=== PATIENT | male | born 1950 | race Caucasian/White ===

== ENCOUNTER → 2017-11-07 09:30 | Outpatient (CLI) | payer MEDICARE, OTHER, SELFPAY ==
[2017-11-07 11:04] LABS: Abs Immature Grans 0.02 k/cumm (0.0-0.09); Absolute Basophil Count 0.02 k/cumm (0.0-0.2); Absolute Eosinophil Count 0.04 k/cumm (0.0-0.7); Absolute Lymphocyte Count 1.12 k/cumm (1.2-3.4); Absolute Monocyte Count 0.74 k/cumm (0.11-0.7); Absolute Neutrophil Count 6.51 k/cumm (1.2-6.7); Basophils % 0.2; Eosinophils % 0.5; HCT 46.3 % (40.0-50.0); Immature Grans % 0.2; Lymphocytes % 13.3; Mean Corp. HGB Concentration 32.4 g/dL (32.0-36.0); Mean Corpuscular Hemoglobin 32.3 pg (27.0-33.0); Mean Corpuscular Volume 99.6 fL (80-95); Monocytes % 8.8; Platelet Count 222 x1000/uL (130-400); RBC 4.65 m/cumm (4.50-6.00); RBC Distribution Width 13.7 % (11.8-14.1); White Blood Cell Count 8.45 k/cumm (4.4-10.8)
[2017-11-07 12:52] LABS: Lipase 314 U/L (73-393)
== END ==
PROVIDERS: PCP Family Medicine; Visit Provider Family Medicine
DX: R10.13 Epigastric pain (principal)
CPT/HCPCS: 36415; 83690; 85025

== ENCOUNTER → 2017-11-10 03:10 | Outpatient (CLI) | payer MEDICARE, OTHER, SELFPAY ==
--- NOTE | 2017-11-10 10:41 | DI.REPORT_ITS ---
SYMPTOM/DIAGNOSIS: ABD PAIN R10.13 ABDOMEN ULTRASOUND: Comparison is made with 02 July 2014. The liver is normal in size and echogenicity. No focal lesions or biliary dilatation is seen. The gallbladder has a normal appearance without evidence of stones or wall thickening. Kidneys, spleen, and aorta appear normal. The visualized portions of the pancreas are unremarkable. There is no ascites. IMPRESSION: Negative abdomen ultrasound.
== END ==
PROVIDERS: PCP Family Medicine; Visit Provider Family Medicine
DX: R10.13 Epigastric pain (principal)
CPT/HCPCS: 76700

== ENCOUNTER → 2017-11-13 07:47 | Outpatient (REF) | payer MEDICARE, OTHER, SELFPAY ==
[2017-11-14 13:54] LABS: Helicobacter pylori Ag, Feces Negative (NEGAT)
== END ==
LOC: LBN 07:47
PROVIDERS: PCP Family Medicine; Visit Provider Family Medicine
DX: R10.13 Epigastric pain (principal)
CPT/HCPCS: 87338

== ENCOUNTER → 2017-12-15 07:56 | Outpatient (BNVA) | payer MEDICARE, OTHER, SELFPAY | PROVIDERS: PCP Family Medicine; Referring Provider Family Medicine; Visit Provider Surgery | DX: L72.3 Sebaceous cyst (principal); R19.06 Epigastric swelling, mass or lump | CPT/HCPCS: 11403; 99201; 99213 ==

== ENCOUNTER → 2018-01-05 10:25 | Outpatient (BNVA) | payer MEDICARE, OTHER, SELFPAY | PROVIDERS: PCP Family Medicine; Referring Provider Family Medicine; Visit Provider Surgery | DX: L72.3 Sebaceous cyst (principal) | CPT/HCPCS: 10061; 99213 ==

== ENCOUNTER → 2018-01-17 14:40 | Outpatient (BNVA) | payer MEDICARE, OTHER, SELFPAY | PROVIDERS: PCP Family Medicine; Referring Provider Family Medicine; Visit Provider Student in an Organized Health Care Education/Training Program | DX: M17.11 Unilateral primary osteoarthritis, right knee (principal); M75.81 Other shoulder lesions, right shoulder; M25.561 Pain in right knee; Z96.652 Presence of left artificial knee joint | CPT/HCPCS: 20610; 99213; J1040 ==

== ENCOUNTER 2018-03-07 10:50 | Outpatient (CLI) | payer MEDICARE, OTHER, SELFPAY ==
[2018-03-07 12:17] LABS: HCT 47.8 % (40.0-50.0); HGB 15.6 g/dL (13.5-17.5); Mean Corp. HGB Concentration 32.6 g/dL (32.0-36.0); Mean Corpuscular Hemoglobin 32.6 pg (27.0-33.0); Mean Platelet Volume 9.8 fL (8.0-11.0); Platelet Count 191 x1000/uL (130-400); RBC 4.78 m/cumm (4.50-6.00); RBC Distribution Width 13.3 % (11.8-14.1); White Blood Cell Count 6.08 k/cumm (4.4-10.8)
[2018-03-07 12:58] LABS: Anion Gap 9.3 mmol/L (3-11); BUN 31 mg/dL (7-18); CO2 29.7 mmol/L (21.0-32.0); CREATININE 0.84 mg/dL (0.70-1.30); Calcium 9.3 mg/dL (8.5-10.1); Chloride 103 mmol/L (98-107); Glucose 88 mg/dL (70-100); Potassium 4.2 mmol/L (3.5-5.1); Sodium 142 mmol/L (136-145)
--- NOTE | 2018-03-07 13:18 | HPE_ITS ---
Date of service: 03/07/18 Assessment and Plan (1) Right knee DJD: Current visit: Yes Status: Chronic Right total knee replacement Details of surgery were discussed with patient as well as risks and pertinent anatomy. All questions were answered. History of Present Illness Chief Complaint: Right knee pain Narrative: Genan is a 67-year-old male who is been complaining of right knee for over a year now. He recently has had his left knee replaced, which is gotten back to a lot of the activities. He is a very active person and enjoys hunting especially. He is in fact this season went out [place] for about 2 weeks, and then returned home hunting for another week and a half every day. He says that he was walking over some rough terrain. He had an injection in his right knee aorta to be able to make the trip at the beginning of January, but he says that the injection is starting to wear off at this point. His right knee is now starting to limit him in his activities. He knows that he has arthritis of his right knee and would like to move forward as soon as possible with a right total knee replacement. He has had x-rays done which do reveal narrowing of the joint space of the medial side of his right knee. He is very happy with the results of his left knee, would like to move forward with a right knee replacement so he can continue to be as active as he has been. Pertinent Surgical Information Genna did not like the way oxycodone made him feel, so he would like to try instead. Patient denies history of hypertension, CVA, NV, angina, asthma, COPD, renal or liver disorders, hepatitis, bleeding disorders, diabetes, immune or thyroid disorders. No complications from anesthesia. Review of Systems Constitutional Denies fever(s) ENT Denies dizziness and Denies sore throat Cardiovascular Denies chest pain, Denies palpitations and Denies dyspnea Respiratory Denies dyspnea Gastrointestinal Denies abdominal pain, Denies melena, Denies hematochezia, Denies diarrhea, Denies nausea and Denies vomiting Genitourinary Denies hematuria and Denies dysuria Neurologic Denies dizziness Endocrine Denies palpitations [facility] History of right inguinal hernia (Acute) Lipoma of abdominal wall (Acute) Sebaceous cyst (Acute) Back pain with sciatica (Chronic) Lumbago (Chronic) Family History Mother Hyperlipidemia Father Dementia Stroke COPD (chronic obstructive pulmonary disease) Sister No problems noted. Grandfather No problems noted. Grandfather Heart disease Grandmother Stroke Grandmother Neoplasm History of arthroscopy of left knee (Acute) History of arthroscopy of right knee (Acute) History of repair of anterior cruciate ligament of left knee (Chronic) Arthroplasty of knee Family History Mother Hyperlipidemia Father Dementia Stroke COPD (chronic obstructive pulmonary disease) Sister No problems noted. Grandfather No problems noted. Grandfather Heart disease Grandmother Stroke Grandmother Neoplasm Medical History History of right inguinal hernia (Acute) Lipoma of abdominal wall (Acute) Sebaceous cyst (Acute) Back pain with sciatica (Chronic) Lumbago (Chronic) Social History Smoking/Tobacco Use Status: Current-Occasional tobacco type: smokeless tobacco Surgical History History of arthroscopy of left knee (Acute) History of arthroscopy of right knee (Acute) History of repair of anterior cruciate ligament of left knee (Chronic) Arthroplasty of knee Social History Smoking/Tobacco Use Status: Current-Occasional tobacco type: smokeless tobacco alcohol intake: current details: 5/week Meds Home Medications Medication Instructions Recorded Confirmed Type meloxicam 15 mg PO DAILY PRN #90 tab 11/06/17 03/07/18 History omeprazole 20 mg PO BID #60 tab-cap 11/06/17 03/07/18 Rx acetaminophen [Mapap Extra 1,000 mg PO Q8H PRN 03/07/18 03/07/18 History Strength] Allergies Allergy/AdvReac Type Severity Reaction Status Date / Time No Known Allergies Allergy Unverified 03/07/18 11:03 Exam HENNJ Head: normocephalic and atraumatic General nose exam: no nasal discharge Throat: uvula midline and no uvular edema Other: soft palate rises symmetrically, no erythema Eyes Conjunctivae: conjunctivae normal Sclera: sclerae normal Pupils: PERRL Resp Effort & Inspection: normal respiratory effort Auscultation: clear to auscultation bilaterally and no wheezes Cardio Rate: regular rate Rhythm: regular rhythm Heart Sounds: S1 normal, S2 normal and no murmurs Other: BP: 128/78 Results Labs : 03/07/18 11:49 03/07/18 11:49 Laboratory Results - last 24 hr 03/07/18 03/07/18 11:49 11:49 WBC 6.08 RBC 4.78 Hgb 15.6 Hct 47.8 MCV 100.0 H MCH 32.6 MCHC 32.6 RDW 13.3 Plt Count 191 MPV 9.8 Sodium 142 Potassium 4.2 Chloride 103 Carbon Dioxide 29.7 Anion Gap 9.3 BUN 31 H Creatinine 0.84 Estimated GFR/1.73 m2 >= 60.00 Glucose 88 Calcium 9.3
== END 2018-03-07 11:10 ==
PROVIDERS: PCP Family Medicine; Visit Provider Student in an Organized Health Care Education/Training Program
DX: M25.561 Pain in right knee (principal); M17.11 Unilateral primary osteoarthritis, right knee; Z01.818 Encounter for other preprocedural examination
CPT/HCPCS: 36415; 80048; 85027; NC

== ENCOUNTER 2018-03-15 05:58 | Observation (INO) | payer MEDICARE, OTHER, SELFPAY ==
[2018-03-15] VITALS (11 sets, daily range): BP systolic 95–139; BP diastolic 49–83; PULSE 49–66; RESP 12–20; TEMP 36–36.6; O2SAT 96–100
[2018-03-15] MEDS: Lactated Ringers 1,000 ML 80 ML IV ×3 (06:34→12:50)
[2018-03-15] MEDS: Gabapentin 300 MG CAP PO (06:35)
[2018-03-15] MEDS: oxyCODONE-CR 10 MG TABCR PO (06:35)
[2018-03-15] MEDS: Acetaminophen 500 MG TAB 1000 MG PO ×2 (06:35→14:15)
[2018-03-15] MEDS: Celecoxib 200 MG CAP 400 MG PO (06:36)
[2018-03-15] MEDS: Bupivacaine LIPOSOME/PF 133 MG/10 ML VIAL IJ (08:59)
[2018-03-15] MEDS: Ketorolac 30 MG/ML VIAL (08:59)
[2018-03-15] MEDS: Bupivacaine 0.25% Pres-Free 30 ML VIAL (08:59)
[2018-03-15] MEDS: Normal Saline 20 ML VIAL (08:59)
--- NOTE | 2018-03-15 13:45 | DSE_ITS ---
Date of service: 03/15/18 Time of Service: 13:44 DS: Diagnosis Discharge Diagnosis (1) Right knee DJD: Status: Acute Discharge Plan Disposition Patient Disposition: HOME Condition: Good Discharge Details Reason For Visit: (R) KNEE DJD Admit Date/Time: 03/15/18 05:58 Admit Provider: Carlos Cancino Attending Provider: Carlos Cancino Primary Care Provider: Lindsey Herndon [facility] Course Hospital Course: Patient was admitted to the medical/surgical floor following the procedure. It was tolerated well without any notable medical, surgical, or anesthetic complications. Mobilization began postoperatively. The foster catheter was removed and voiding spontaneously. Vitals were stable. Physical therapy worked with the patient and was cleared for discharge home. No acute medical issues. Home Meds and New Rx's Prescriptions: New celecoxib 200 mg capsule 200 mg PO BID PRN (Reason: pain) Qty: 60 RF: 1 pantoprazole 40 mg tablet,delayed release (DR/EC) 40 mg PO DAILY Qty: 30 RF: 0 acetaminophen 500 mg capsule 1,000 mg PO Q8H PRN (Reason: pain) Qty: 90 RF: 0 oxycodone 5 mg tablet 5 mg PO Q4H Qty: 10 RF: 0 aspirin [Aspir-81] 81 mg tablet,delayed release (DR/EC) 81 mg PO BID Qty: 80 RF: 0 Continued acetaminophen [Mapap Extra Strength] 500 MG tablet 1,000 mg PO Q8H PRNRF: 0 omeprazole 20 MG capsule,delayed release(DR/EC) 20 mg PO BID PRNRF: 0 Discontinued meloxicam 15 MG tablet 15 mg PO DAILY PRNQty: 90 RF: 11 Discharge Instructions Additional Instructions: Dr. Cancino?s Total Knee Discharge Instructions Activity: The most important activity is to walk. You should try to take short walks a few times a day. It is important that when resting you work on keeping the knee straight. Avoid putting a pillow behind the knee as this will encourage flexion. Work on range of motion exercises as provided by Physical Therapy. - Start outpatient physical therapy within 2 weeks. - You should wear the MIGNON hose on both legs for 4 weeks. Dressing: Remove the CHRISTOPHER wrap from around the knee on . If it comes down sooner, you may remove it. Keep the surgical dressing in place for at least one week. After the first week it may be removed and replace with light gauze and tape or nothing. It may get wet after 3 days but avoid soaking the dressing. If it gets wet, just lightly pat dry. Medications: - You should take Tylenol and anti-inflammatory (Celebrex) as your primary pain control medications - You have been prescribed a stronger pain medication (Oxycodone) for breakthrough pain, take as needed as prescribed. - You will be taking Aspirin 81mg twice a day for DVT prevention unless instructed otherwise. - If you have constipation you should take Colace or Miralax (both [id number]). It takes most people 3-4 days to have a bowel movement. Follow-up: 2 weeks Referrals: Carlos Cancino MD [ [facility] STAFF PHYSICIAN] - 03/30/18 10:45 am Activity:: Activity as Tolerated Equipment/Supplies:: Walker Diet:: Normal Diet Discharge Orders Discharge Orders: Discharge Order (Routine); Ordered 03/15/18 Ordered By: Carlos Cancino DS: Data Vitals/I&O Vitals and I&O: Vital Signs Temperature 36.4 C L 03/15/18 13:00 Temperature Source Tympanic 03/15/18 13:00 Pulse 61 03/15/18 13:00 Pulse Rhythm Regular 03/15/18 10:45 Respiratory Rate 20 03/15/18 13:00 Respiratory Effort Non-Labored 03/15/18 10:45 Respiratory Depth Normal 03/15/18 10:45 Respiratory Pattern Normal 03/15/18 10:45 Blood Pressure 108/63 03/15/18 13:00 Pulse Oximetry 97 03/15/18 13:00 Respiratory End-tidal CO2 33 03/15/18 09:53 Oxygen Delivery Method Room Air 03/15/18 13:00 Oxygen Flow Rate 0 03/15/18 13:00 Pain Level 0 03/15/18 13:00 Intake & Output 03/14/18 03/15/18 03/15/18 23:59 11:59 23:59 Intake Total 1470 / 1672.667 202.667 / 1672.667 Output Total 300 / 300 Balance 1170 / 1372.667 202.667 / 1372.667 Weight 67.5 kg Intake: IV 1470 / 1672.667 202.667 / 1672.667 Output: Urine 100 / 100 Estimated Blood Loss 200 / 200 Other: Urine Color Yellow Urine Appearance Clear Emesis Description None [facility] Medical History History of right inguinal hernia (Acute) Lipoma of abdominal wall (Acute) Sebaceous cyst (Acute) Back pain with sciatica (Chronic) Lumbago (Chronic) Surgical History History of arthroscopy of left knee (Acute) History of arthroscopy of right knee (Acute) History of repair of anterior cruciate ligament of left knee (Chronic) Arthroplasty of knee Family History Mother Hyperlipidemia Father Dementia Stroke COPD (chronic obstructive pulmonary disease) Sister No problems noted. Grandfather No problems noted. Grandfather Heart disease Grandmother Stroke Grandmother Neoplasm Social History Smoking/Tobacco Use Status: Current-Occasional tobacco type: smokeless tobacco alcohol intake: current details: 5/week
--- NOTE | 2018-03-15 15:26 | PT.INIE ---
Date of service: 03/15/18 Time of Service: 15:26 PT Notes Inpatient Physical Therapy Evaluation Date: 03/15/2018 Referring Doctor: Carlos Cancino MD PT Orders: PT CONSULT: S/P R TKA Precautions: WBAT RLE Patient Profile/Admitting Diagnosis: Patient is a 67-year-old male S/P right total knee arthroplasty by Dr. Cancino 03/15/2018 PMHX: Right knee degenerative joint disease, left total knee arthroplasty 04/11/2017, right rotator cuff tendinitis, lumbago, posterior vitreous detachment of right eye, asymmetric prostate Social History/Home Situation: Lives at home with 2 steps no railing to enter, all one level inside. Baseline mobility independent gait without assistive device and independent with ADLs. Equipment Owned/DME: FWW, cane Subjective: Patient lying in bed agreeable to PT consult, reports no pain. Objective: General Observation: CryoCuff right knee, IV left upper extremity Mental Status: A and O x3 Pain: No complaints of pain Bed Mobility/Transfers: Supine to sit: Independent Sit to stand: Independent with FW W Stand to sit: Independent Sit to supine: Independent Gait: Independent with FWW 200 feet, WBAT RLE, step to gait pattern progressing to step through gait pattern with instruction, patient returned to bed after gait session completed, Cryo/Cuff applied to right knee Stairs: Up/down 5 steps with railing, WBAT RLE, independent with step to step sequence Therex: Patient has issued preop home exercise program for TKA, initiated ankle pumps quad sets and glutes sets x20 reps bilaterally. Patient instructed to follow home exercise program on discharge. Patient instructed in use of Cryo/Cuff and home setting, patient verbalized understanding of all instructions. Balance: Static Sitting: Normal Dynamic Sitting: Normal Static Standing: Fair Dynamic Standing: Fair Special Tests: Mobility Limitations Standardized Measure [facility] AM-PAC 6 clicks Basic Mobility Inpatient Short Form: Raw Score: 20 standardized Score: 47.67 CMS Score: 35.83% CMS Modifier: CJ Informed Consent/Education: Patient instructed in purpose of PT consult and plan of care. Assessment: Patient is a 67-year-old male S/P right total knee arthroplasty by Dr. Cancino 03/15/2018 in setting of right knee degenerative joint disease, left total knee arthroplasty 04/11/2017, right rotator cuff tendinitis, lumbago. Patient presents at independent level of function with transfers and gait with front wheel walker and up and down stairs. Patient is a functional level to return to home setting, home exercise program issued to perform and home setting. Impairments are contributing to the following functional limitations: AMPAC score CMS Score: 35.83% Patient is assessed as a Low 78543 complexity based on the following: History: See above Examination: See above Presentation: Stable Decision Making: AMPAC score CMS Score: 35.83% Goals: Not applicable Plan of Care/Treatment Plan: PT eval only DISCHARGE RECOMMENDATIONS: Home, has front wheel walker TREATMENT CODE/TIME: 26 minutes IE 1325 G Codes in the area mobility of walking and moving around: current status [id number]; projected status GP [id number]. Discharge status (if discharging) GP [id number] CJ based on AMPAC score CMS Score: 35.83% Nataly Elias PT Disclaimer: This note was created using [employer] voice recognition software. It was reviewed for major content. However, there may be multiple small discrepancies and errors due to the voice recognition aspects of the software.
--- NOTE | 2018-03-15 15:36 | IN_ITS ---
Date of service: 03/15/18 Time of Service: 15:26 PT Notes Inpatient Physical Therapy Evaluation Date: 03/15/2018 Referring Doctor: Carlos Cancino MD PT Orders: PT CONSULT: S/P R TKA Precautions: WBAT RLE Patient Profile/Admitting Diagnosis: Patient is a 67-year-old male S/P right total knee arthroplasty by Dr. Cancino 03/15/2018 PMHX: Right knee degenerative joint disease, left total knee arthroplasty 04/11/2017, right rotator cuff tendinitis, lumbago, posterior vitreous detachment of right eye, asymmetric prostate Social History/Home Situation: Lives at home with 2 steps no railing to enter, all one level inside. Baseline mobility independent gait without assistive device and independent with ADLs. Equipment Owned/DME: FWW, cane Subjective: Patient lying in bed agreeable to PT consult, reports no pain. Objective: General Observation: CryoCuff right knee, IV left upper extremity Mental Status: A and O x3 Pain: No complaints of pain Bed Mobility/Transfers: Supine to sit: Independent Sit to stand: Independent with FW W Stand to sit: Independent Sit to supine: Independent Gait: Independent with FWW 200 feet, WBAT RLE, step to gait pattern progressing to step through gait pattern with instruction, patient returned to bed after gait session completed, Cryo/Cuff applied to right knee Stairs: Up/down 5 steps with railing, WBAT RLE, independent with step to step sequence Therex: Patient has issued preop home exercise program for TKA, initiated ankle pumps quad sets and glutes sets x20 reps bilaterally. Patient instructed to follow home exercise program on discharge. Patient instructed in use of Cryo/Cuff and home setting, patient verbalized understanding of all instructions. Balance: Static Sitting: Normal Dynamic Sitting: Normal Static Standing: Fair Dynamic Standing: Fair Special Tests: Mobility Limitations Standardized Measure [facility] AM-PAC 6 clicks Basic Mobility Inpatient Short Form: Raw Score: 20 standardized Score: 47.67 CMS Score: 35.83% CMS Modifier: CJ Informed Consent/Education: Patient instructed in purpose of PT consult and plan of care. Assessment: Patient is a 67-year-old male S/P right total knee arthroplasty by Dr. Cancino 03/15/2018 in setting of right knee degenerative joint disease, left total knee arthroplasty 04/11/2017, right rotator cuff tendinitis, lumbago. Patient presents at independent level of function with transfers and gait with front wheel walker and up and down stairs. Patient is a functional level to return to home setting, home exercise program issued to perform and home setting. Impairments are contributing to the following functional limitations: AMPAC score CMS Score: 35.83% Patient is assessed as a Low [id number] complexity based on the following: History: See above Examination: See above Presentation: Stable Decision Making: AMPAC score CMS Score: 35.83% Goals: Not applicable Plan of Care/Treatment Plan: PT eval only DISCHARGE RECOMMENDATIONS: Home, has front wheel walker TREATMENT CODE/TIME: 26 minutes IE 1325 G Codes in the area mobility of walking and moving around: current status [id number]; projected status GP [id number]. Discharge status (if discharging) GP [id number] CJ based on AMPAC score CMS Score: 35.83% Nataly Elias PT Disclaimer: This note was created using [employer] voice recognition software. It was reviewed for major content. However, there may be multiple small discrepancies and errors due to the voice recognition aspects of the software.
--- NOTE | 2018-03-16 06:57 | W.PM.OP ---
Date of service: 03/15/18 Time of Service: 09:57 Operative Note DATE OF PROCEDURE: 03/15/18 PRE-OP DIAGNOSIS: Right knee osteoarthritis POST-OP DIAGNOSIS: same PROCEDURE: Right Total Knee Replacement SURGEON: Carlos Cancino GRADES 1 THROUGH 5 TEACHER: Patrizia Muniz ANESTHESIA: regional and spinal ESTIMATED BLOOD LOSS: 200 PATHOLOGY: none sent TOURNIQUET TIME: 0 COMPLICATIONS: None Patient was transported to: PACU Patient's condition: stable Implants: 1. Depuy Attune Posterior Stabilized Femoral Component, Size 6 2. Depuy Attune Fixed Platform Tibial Component, Size 5 3. Depuy Attune 6x6mm Fixed, Stabilized Poly 4. Depuy Attune Patellar Component, Size 35 Indications: I have seen Genna in clinic for symptoms of RIGHT knee arthritis, confirmed with radiographic findings. Genna has exhausted nonoperative methods and was having significant limitations in daily function and desired better function and less pain. I discussed the technical details of a knee replacement. I explained the risks of the procedure to include, but not limited to, bleeding, infection, pain, stiffness, fracture, damage to nerves and vessels, damage to muscles and tendons, loosening, need for repeat procedure, blood clot and cardiopulmonary demise. Despite these risks, Genna elected to proceed. Findings: There was significant signs of arthritis throughout the knee. These are focused primarily over the medial side of the knee where there is complete loss of cartilage and exposure of bone. Procedure Description: Genna was greeted in the preoperative holding area where the correct side was identified and marked. The consent was reviewed with the patient and signed. The history and physical was updated. All questions were answered. Preoperative mediacations were administered: Acetaminophen 1000mg, Celebrex 400mg, Gabapentin 300mg, and Oxycontin 10mg. An adductor canal block was then administered by the anesthesia team in the PACU. Genna was taken back to the operating room. A spinal anesthestic was then administered. The patient was placed into the supine position on the operating room table. A nonsterile tourniquet was placed high onto the leg but only used for cementing. Posts were placed for positioning during the procedure. All bony prominences were well padded. Prophylactic antibiotics in the form of Cefazolin were administered. 1g of Tranxemic Acid was given intravenously within 30 minutes of incision. The right leg was then prepped with Chloraprep and draped in a standard fashion with impervious stockinette and extremity drape with Iodine impregnated skin protection. A timeout to confirm correct identity, side and site, procedure, allergies, anesthesia, and medical concerns was performed. With the knee in some flexion, a midline incision was made overlying the knee. Full thickness skin flaps were raised once the extensor mechanism was encountered. These were raised medially and laterally. Any bleeding was controlled with electrocautery. Once the extensor mechanism was fully exposed, a medial parapatellar arthrotomy was performed in a flexed position. All bleeding from the arthrotomy and the geniculate arteries was coagulated. A medial subperiosteal peel was performed with electrocautery to the midcoronal plane. The fat pad was removed while keeping the patellar tendon protected. The anterior distal femur synovium was removed for later visualization. The ACL and PCL were resected and the anterior horn of the lateral meniscus was transected. The knee was then flexed with the patella everted. Using a step drill, and based on preoperative templating, the femoral canal was entered. This was done with a step drill without any difficulty. The intramedullary distal femoral cut guide was inserted, set to a 5 degree valgus cut and 9mm cut thickness. The distal femoral cut guide was then held in position and pinned. With the soft tissues protected, the distal cut was performed. This was passed over a few times to ensure a planar cut. I then turned attention to the tibia. The extramedullary guide was placed onto the leg. The distal aspect was slid medial to adjust for position of center of ankle and stay in line with shaft of the tibia. Approximately 3-5 degrees of posterior slope was kept in the proximal cutting guide. The center of the guide was aligned with the PCL. The stylus was used to assess cut thickness. The medial side, most involved side, was set for a 4mm cut. This was then held in position and pinned into place with 2 additional pins and a cross pin for stability. The medial and lateral collateral ligaments were protected and the cut was performed. With this completed, it was assessed and noted to be of appropriate dimensions. The guide was removed. A spacer block was inserted and the knee was brought into extension. The 6mm spacer block provided full extension, without hyperextension and with stability of both the medial and lateral collateral ligaments was assessed. The pins from the femur and the tibia were then removed. The distal femur was then sized. The anterior stylus was placed onto the lateral ridge of the anterior femur. This indicated a size 6 femur. The external rotation of the guide was adjusted to 3 degrees to match the epicondylar axis, perpendicular to Araceli?s line. The 4-in-1 cutting guide was the placed. The posterior medial femur cut was evaluated and appeared of good thickness. The spacer block was inserted underneath the cutting guide and stability was confirmed in 90 degrees of flexion. An azul wing was used to confirm appropriate position of the anterior cut to avoid notching. This cutting guide was ensured to be flush on the cut surface and then pinned into place with headed pins. While protecting the soft tissues, quad tendon, and collateral ligaments, the anterior and posterior cuts were performed with a saw. The central two pins were removed and the posterior and anterior chamfers were cut next. The notch-cutting guide was placed. This was pinned to lateralize the femoral component as much as possible while keeping it flush on the cut surface. This was then pinned into position. A reciprocating saw was used to make the notch cut. A rasp smoothed the cut surfaces. A trial posterior stabilized femoral component was then inserted, impacted down to the cut surfaces, and the lug holes were drilled. A provisional trial tibial component was placed and the knee was brought through range of motion. There was noted to be excellent extension and flexion. There was no significant instability. The patella was tracking without thumbs. The tibial cut surface was fully exposed. The medial and lateral menisci were removed. The tibia was then sized as a 5. The tibia had been previously marked during trialing to correspond to the center of the tibial component to help with rotation. The trial was aligned to this feliz, approximately rotated to the medial 1/3rd of the tibial tubercle. The trial was pinned into place. The tibia was prepared with a reamer and a keel punch. The knee was then brought into extension and the patella was measured as 25mm. Using the patellar clamp and cut guide, this was resected to a flat surface with at least 13mm of thickness remaining. The size 35 patella fit the best. This was oriented and then clamped into position. The lugs were drilled. The trial components were removed. The final components, except for the polyethylene were opened on the back table. The periosteal and capsular tissues, especially posteriorly, around the knee were then systematically injected with a periarticular cocktail consisting of 50cc 0.25% Marcaine, 30mg Ketorolac, 20cc of Exparal and 50cc of injectable saline. The knee was thoroughly irrigated with a pulse lavage and dried. On the back table, with the implants opened, the cement was mixed. 2 batches of antibiotic laden cement were prepared with vacuum assistance. After the cement was ready a small amount was placed on to the back side of the tibial component at the keel. A small amount was placed onto the posterior flange of the femur. Cement was manual pressurized and impregnated into the cut surface of the tibia. The tibial component was then inserted into the cut surface and impacted into position. Excess cement was removed and the component was reimpacted. Again, excess cement was removed and our attention was then turned to the femur. The femoral cut surface was once again dried and cement was manually impacted into the cut surface. The femoral component was lined with the lug holes and impacted. Excess cement was removed. It was ensured to be down against the cut surface. The trial polyethylene was then inserted and the leg was brought out into full extension for the duration of the cement curing process, approximately 15min. Cement was lastly manually impacted into the cut surface of the patella and the patellar button was clamped into position and held. During this process attention was turned to the gutters of the knee and for all interfaces for any excess cement. After the cement had finally cured, approximately 15min, the clamp was removed from the patella and the knee was taken through range of motion. A size 6mm polyethylene component provided the best range of motion and stability with less than 2mm gapping with medial and lateral stress and full extension without significant hyperextension. The patella was tracking with a no-thumbs technique. The trial poly was removed and once again the knee was checked for any loose, excess, or errant cement. The poly component was then inserted and impacted into position after cleaning and drying the tibial tray. The capsule was then reapproximated with a No. 1 Vicryl at multiple locations. The capsule was finally closed with a No. 2 Stratafix, barbed suture. The second dosing of 1g TXA was started. Deep tissues were then reapproximated with 0 Vicryl and 2-0 Vicryl. The skin was closed with a running 3-0 Monocryl in a subcuticular fashion. This was reinforced with skin glue. A Mepilex silver dressing was applied along with a [id number] CHRISTOPHER wrap. A CryoCuff was applied. Genna was transferred to the hospital bed without difficulty an suffering no apparent complication. Genna has a good prognosis. Physical therapy will start today and without restrictions, weight-bearing as tolerated. Aspirin 81mg BID will be used for DVT prophylaxis.
== END 2018-03-15 17:43 | disposition home or self-care (01) ==
LOC: PDS 10:49 → MS 10:50
PROVIDERS: Admitting Provider Student in an Organized Health Care Education/Training Program; PCP Family Medicine; Visit Provider Student in an Organized Health Care Education/Training Program
PROC: 0SRC0J9 Replacement of Right Knee Joint with Synthetic Substitute, Cemented, Open Approach (ICD-10-PCS; CPT 27447; principal; 2018-03-15 07:30)
DX: M17.11 Unilateral primary osteoarthritis, right knee (principal); Z96.651 Presence of right artificial knee joint
CPT/HCPCS: 27447; 76942; 97161; NC; G0378; G8978; J0690; J1885; J2250; J2405; J3010

== ENCOUNTER 2018-03-30 11:07 | Outpatient (CLI) | payer MEDICARE, OTHER, SELFPAY ==
--- NOTE | 2018-03-30 11:02 | DI.RAD_ITS ---
SYMPTOMS/DIAGNOSIS: S/P TOTAL KNEE LEG LENGTH EXAMINATION AND RIGHT KNEE: There are post surgical changes of a right total knee replacement. The orthopedic hardware appears in good position. The bones are intact and normally mineralized. Note is made of a left total knee replacement and findings of a prior ACL repair. The right lower extremity measures 89.8 cm. The left lower extremity measures 90.3 cm. The soft tissues are unremarkable. IMPRESSION: Bilateral TKR.
== END 2018-03-30 11:27 ==
PROVIDERS: PCP Family Medicine; Visit Provider Student in an Organized Health Care Education/Training Program
DX: Z96.653 Presence of artificial knee joint, bilateral (principal); Z47.1 Aftercare following joint replacement surgery; M17.11 Unilateral primary osteoarthritis, right knee; H35.049 Retinal micro-aneurysms, unspecified, unspecified eye
CPT/HCPCS: 73560; 77073

== ENCOUNTER → 2018-04-27 09:26 | Outpatient (BNVA) | payer MEDICARE, OTHER, SELFPAY | PROVIDERS: PCP Family Medicine; Referring Provider Family Medicine; Visit Provider Student in an Organized Health Care Education/Training Program | DX: Z47.1 Aftercare following joint replacement surgery (principal); Z96.651 Presence of right artificial knee joint ==

== ENCOUNTER → 2018-04-30 08:52 | Outpatient (BNVA) | payer MEDICARE, OTHER, SELFPAY | PROVIDERS: PCP Family Medicine; Referring Provider Family Medicine; Visit Provider Physical Therapy Assistant | DX: Z12.11 Encounter for screening for malignant neoplasm of colon (principal) ==

== ENCOUNTER 2018-05-15 07:11 | Day surgery (SDC) | payer MEDICARE, OTHER, SELFPAY ==
--- NOTE | 2018-05-15 06:40 | W.COLOREPORT ---
Date of service: 05/15/18 Time of Service: 08:25 Colonoscopy Report Date of procedure: 05/15/18 Pre-op diagnosis general: Colon Cancer Screening Post-op diagnosis procedure note: other (sigmoid polyp) Procedure: Colonoscopy with polypectomy by cold forceps Surgeon: Lamar Ortez Anesthesia proc note operative: MAC (Nolvia Rainey, ASTRID/ ASA 2) Estimated blood loss (mL): 5 Pathology: other (sigmoid polyp) Complications: None Disposition: same day Indications: Mr. Gomez is a pleasant 67 year old male who had a colonoscopy in 2007 that was normal. He is here today for another colonoscopy. Risks, benefits and complications have been reviewed. Complications include but are not limited to bleeding, pain, perforation, missed small lesion/polyp, sore throat, aspiration and adverse reaction to the medications. Questions were entertained and answered to their satisfaction and they wished to proceed. No guarantees were given or implied. Prep: Miralax/Dulcolax Procedure Start Time: 08:25 Procedure End Time: 08:43 Retraction Time: 13 minutes Findings: One sessile polyp noted in the sigmoid colon as well as a handful of diverticuli in the sigmoid colon Procedure Description: After informed consent was obtained the patient was taken to the procedure room and placed in a left decubitous position. Monitors were applied and a time out was done. The patients name, date of , procedure, allergies to medications and metal in their body was reviewed. The patient was then sedated. Once sedated and comfortable a rectal exam was done. External exam was normal. Internal exam revealed a normal sphincter tone and no palpable masses. The prostate felt normal. The scope was then introduced and retro-flexed. No internal hemorrhoids were identified. The scope was then advanced to the cecum without difficulty. The TI and appendiceal orifice were identified. The prep was good. The scope was then slowly retracted over 13 minutes back into the rectum. Polyp was removed in the sigmoid colon. There were a handful of diverticuli noted in the sigmoid colon. The scope was removed and the patient was woken up and taken back to Same day surgery in stable condition. The patient tolerated the procedure well and there were no immediate complications. Follow up: The patient should follow up in 3-5 years unless they develop changes in bowel habits or other new gastrointestinal complaints.
--- NOTE | 2018-05-15 06:43 | W.PM.DSUDISC ---
Discharge Plan Disposition Patient Disposition: HOME Condition: Good Discharge Details Reason For Visit: colon cancer screening Attending Provider: Lamar Ortez Primary Care Provider: Lindsey Herndon Home Meds and New Rx's Prescriptions: Continued celecoxib [Celebrex] 50 mg capsule 50 mg PO BID RF: 0 acetaminophen [Mapap Extra Strength] 500 MG tablet 1,000 mg PO Q8H PRNRF: 0 Discontinued bisacodyl [Dulcolax (bisacodyl)] 5 mg tablet,delayed release (DR/EC) 5 mg PO ONCE Qty: 4 RF: 0 polyethylene glycol 3350 17 gram/dose powder 255 g PO ONCE Qty: 255 RF: 0 Discharge Instructions Instructions: Colonoscopy (DC), Colorectal Polyps (DC) Additional Instructions: Findings: 1 polyp Follow up: 3-5 years Please call if you develop: fevers >101.5 Nausea or Vomiting Abdominal pain that is not transient DAY SURGERY UNIT POST COLONOSCOPY INSTRUCTIONS 1. Because there will be medication in your system for the next 24 hours, you may feel a little sleepy. Your coordination will be affected. Therefore: a. Do not drive or operate dangerous equipment for 24 hours. b. Do not drink alcohol beverages for 24 hours (not even beer). c. Plan to go home and rest for the day. 2. Generally there are no restrictions on your activity after a day or so has gone by, but you may feel a bit fatigued for a few days. 3 After you arrive home you may have a light meal and return to a normal diet as you can tolerate it without feeling sick to your stomach. 4. After surgery, you may feel pain or discomfort. This should be only transient, but if it persists please contact your doctor. 5. If there are any questions regarding the findings of your procedure, please feel free to contact your doctor. 6. If you are unable to contact your doctor with a problem, contact the hospital at [phone]. 7. Continue all your regular medications unless directed otherwise. I understand the above instructions and have no questions. Signature of Patient or Responsible Adult Escort Date/Time Name of Responsible Adult Escort Signature of Nurse Date/Time Activity:: Activity as Tolerated Diet:: As Tolerated Discharge Orders Discharge Orders: Discharge Order (Routine); Ordered 05/15/18 Ordered By: Lamar Ortez DS: Diagnosis Discharge Diagnosis (1) S/P colonoscopy: Status: Acute (2) Colorectal polyp detected on colonoscopy: Status: Acute
[2018-05-15 07:22] VITALS: BP 145/65; PULSE 71; RESP 16; TEMP 35.6; O2SAT 100
[2018-05-15] MEDS: Lactated Ringers 1,000 ML 80 ML IV (07:42)
--- NOTE | 2018-05-15 08:40 | BOWEL_PTH ---
PATIENT: Genna Gomez LOC: [facility] U#:[id number] AGE/SX: 67/M ROOM: RE05/15/[address]: Lamar Ortez MD : [id number] BED: DIS: 05/15/2018 SPEC #: [id number] RECD: 05/15/18 12:06 STATUS: MOISÉS RE #: [id number] DONIS: 05/15/18 08:[address]: Lamar Ortez DEPT: Surgical Specimen RECD BY: Amara Espana ENTERED: 05/15/18 12:06 SP TYPE: Bowel OTHR DR: Lindsey Herndon MD, DC Tissues: 1 - BIOPSY BOWEL Procedures: GROSS AND MICRO LEVEL 4 Comments: [id number]
[2018-05-15 09:27] VITALS: BP 132/77; PULSE 62; RESP 16; TEMP 35.7; O2SAT 100
== END 2018-05-15 09:45 | disposition home or self-care (01) ==
LOC: SUR 07:12
PROVIDERS: PCP Family Medicine; Visit Provider Surgery
PROC: 0DJD8ZZ Inspection of Lower Intestinal Tract, Via Natural or Artificial Opening Endoscopic (ICD-10-PCS; CPT 45378; principal; 2018-05-15 08:15)
DX: Z12.11 Encounter for screening for malignant neoplasm of colon (principal); D12.5 Benign neoplasm of sigmoid colon
CPT/HCPCS: 45380; 88305

== ENCOUNTER → 2018-08-17 07:24 | Outpatient (BNVA) | payer MEDICARE, OTHER, SELFPAY | PROVIDERS: PCP Family Medicine; Referring Provider Family Medicine; Visit Provider Surgery | DX: L72.3 Sebaceous cyst (principal) | CPT/HCPCS: 11403; 12032; 99212 ==

== ENCOUNTER → 2018-08-29 10:39 | Outpatient (BNVA) | payer MEDICARE, OTHER, SELFPAY | PROVIDERS: PCP Family Medicine; Referring Provider Family Medicine; Visit Provider Student in an Organized Health Care Education/Training Program | DX: M75.82 Other shoulder lesions, left shoulder (principal); Z96.651 Presence of right artificial knee joint; M75.81 Other shoulder lesions, right shoulder | CPT/HCPCS: 99213 ==

== ENCOUNTER 2018-09-14 10:34 | Outpatient (CLI) | payer MEDICARE, OTHER, SELFPAY ==
--- NOTE | 2018-09-14 10:15 | DI.RAD_ITS ---
SYMPTOM/DIAGNOSIS: RT SHOULDER PAIN RIGHT SHOULDER: There is mild spurring of the AC joint and glenoid. There is calcification faintly seen above the greater tuberosity which could indicate calcific tendinosis. The humeral head is normally positioned. IMPRESSION: Mild degenerative changes and supraspinatus calcific tendinosis
== END 2018-09-14 10:54 ==
PROVIDERS: PCP Family Medicine; Referring Provider Family Medicine; Visit Provider Student in an Organized Health Care Education/Training Program
DX: M75.81 Other shoulder lesions, right shoulder (principal); M25.511 Pain in right shoulder; M19.011 Primary osteoarthritis, right shoulder; M75.21 Bicipital tendinitis, right shoulder
CPT/HCPCS: 20610; 99213; 73030; J1040

== ENCOUNTER → 2018-10-10 09:29 | Outpatient (BNVA) | payer MEDICARE, OTHER, SELFPAY | PROVIDERS: PCP Family Medicine; Referring Provider Family Medicine; Visit Provider Student in an Organized Health Care Education/Training Program | DX: M75.21 Bicipital tendinitis, right shoulder (principal); Z96.651 Presence of right artificial knee joint; Z98.890 Other specified postprocedural states; Z47.1 Aftercare following joint replacement surgery | CPT/HCPCS: 99213 ==

== ENCOUNTER 2018-10-16 09:33 | Outpatient (CLI) | payer MEDICARE, OTHER, SELFPAY ==
[2018-10-16 11:59] LABS: ALT 46 U/L (12-78); AST 28 U/L (15-37); Alkaline Phosphatase 103 U/L (46-116); Anion Gap 8.8 mmol/L (3-11); BUN 24 mg/dL (7-18); Bilirubin, Total 1.7 mg/dL (0.2-1.0); CO2 28.2 mmol/L (21.0-32.0); CREATININE 0.96 mg/dL (0.70-1.30); Calcium 9.3 mg/dL (8.5-10.1); Calculated LDL 106 mg/dL; Chloride 104 mmol/L (98-107); Cholesterol 208 mg/dL (50-200); Glucose 89 mg/dL (70-100); HDL Cholesterol 85 mg/dL (40-60); Potassium 4.8 mmol/L (3.5-5.1); Sodium 141 mmol/L (136-145); Total Protein 6.5 g/dL (6.4-8.2); Triglyceride 87 mg/dL (30-150); Vitamin B12 375 pg/mL (193-986)
[2018-10-17 09:36] LABS: PSA, Screening 1.6 ng/ml (0-4.5)
== END 2018-10-16 09:53 ==
PROVIDERS: PCP Family Medicine; Visit Provider Family Medicine
DX: R79.9 Abnormal finding of blood chemistry, unspecified (principal); R94.5 Abnormal results of liver function studies; Z12.5 Encounter for screening for malignant neoplasm of prostate
CPT/HCPCS: 80053; 80061; 83721; 84153; 82607

== ENCOUNTER 2019-03-14 08:57 | Outpatient (CLI) | payer MEDICARE, OTHER, SELFPAY ==
--- NOTE | 2019-03-14 09:03 | DI.RAD_ITS ---
EXAM: XR KNEE RT 2V AP,LAT CLINICAL HISTORY: ANNUAL F/U TECHNIQUE: COMPARISON: XR knee RT 1V from 03/30/2018 FINDINGS: Two views were obtained and show total knee joint replacement in position. Components appear well se ated. No other significant bony abnormality seen. IMPRESSION:
== END 2019-03-14 09:17 ==
PROVIDERS: PCP Family Medicine; Referring Provider Family Medicine; Visit Provider Student in an Organized Health Care Education/Training Program
DX: Z96.653 Presence of artificial knee joint, bilateral (principal); Z47.1 Aftercare following joint replacement surgery; M25.561 Pain in right knee; M25.662 Stiffness of left knee, not elsewhere classified
CPT/HCPCS: 99213; 73560

== ENCOUNTER 2019-04-30 08:54 | Day surgery (SDC) | payer MEDICARE, OTHER, SELFPAY ==
[2019-04-30] VITALS (10 sets, daily range): BP systolic 111–143; BP diastolic 46–85; PULSE 47–62; RESP 12–20; TEMP 36–36.5; O2SAT 98–100
--- NOTE | 2019-04-30 09:25 | W.PREOPHP ---
Documented by User: JANEL Salcido 04/30/19 09:44 Date of service: 04/30/19 Time of Service: 09:25 Assessment and Plan Assessment and plan (1) History of total right knee replacement (TKR): Status: Acute (2) History of total left knee replacement (TKR): Status: Acute Assessment and plan: A// Despite lengthy attempts at non-surgical interventions to improve his bilateral knee ROM s/p cody. TKA's he continues to have restricted ROM and daily stiffness. Questions were answered to patient satisfaction and after discussion patient is agreeable and wishes to proceed with surgical intervention. P// Bilateral knee arthroscopies with synovectomy and manipulation of the left knee with Dr. Cancino. History of Present Illness History of Present Illness Chief Complaint: Decreased ROM in Cody. knees Narrative: 68 y/o male whom is s/p bilateral TKA presents for bilateral knee athroscopies with synovectomy, removal of scar tissue and manipulation to improve his ROM. Patient denies any changes in his medical history since last seen by the orthopedic office in 2018. He denies any chest pain, palpitations, dyspnea or dyspnea with exertion. Review of Systems Constitutional Constitutional: Denies chills, Denies fever(s), Denies frequent falls, Denies night sweats and Denies weight loss Eyes Eyes: Denies loss of vision ENT Ears, Nose, Mouth, and Throat: Denies abnormal hearing, Denies dysphagia, Denies hearing loss, Denies nasal congestion and Denies neck pain Cardiovascular Cardiovascular: Denies chest pain at rest, Denies chest pain with activity, Denies syncope, Denies dyspnea, Denies dyspnea on exertion and Denies paroxysmal nocturnal dyspnea Respiratory Respiratory: Denies cough, Denies dyspnea and Denies dyspnea on exertion Gastrointestinal Gastrointestinal: Denies abdominal pain, Denies melena, Denies hematochezia, Denies change in bowel habits, Denies constipation, Denies dysphagia and Denies diarrhea Genitourinary Genitourinary: Denies urinary frequency, Denies urinary hesitancy and Denies urinary urgency Musculoskeletal Musculoskeletal: Denies neck pain Integumentary/Breasts Skin/Breast: Denies bleeding lesions, Denies non-healing lesions, Denies rash and Denies unusual bruising Neurologic Neurologic: Denies abnormal hearing, Denies syncope, Denies frequent falls and Denies loss of vision Hematologic/Lymphatic Hematologic/Lymphatic: Denies easy bleeding and Denies easy bruising [facility] Social History (Updated 10/17/18 @ 07:57 by Reinaldo Russell) Smoking/Tobacco Use Status: Current-Occasional Tobacco Type: smokeless tobacco Smokeless tobacco user: chewing tobacco Alcohol Intake: current Alcohol Intake frequency: 0-2 drinks per day Alcohol type: hard liquor Details: 5/week Drug use: Never Caregiver/Support person: Yes Household members: spouse Housing: house Communication Needs: Hard of Hearing Pets and animals: No Sexually active: Yes Do you think of yourself as: straight/heterosexual Current gender identity: male What is your relationship status?: How often do you talk on the phone with friends or family?: three or more times per week How often do you get together with friends or relatives?: twice per week How often do you attend protestant or adventism services?: decline to answer Do you belong to any clubs or organized social groups?: no Panel score (0-1 are the most socially isolated patients): 2 What type of physical activity do you participate in: weight lifting Duration: 60-90 minutes/day Frequency: 3-4 times per week Drea/Restoration: No preference Special drea needs: No Do you feel safe at home: Yes Do you feel safe in your relationship?: Yes Meds Home Medications and Allergies Home Medications Medication Instructions Recorded Confirmed Type acetaminophen [Mapap Extra 1,000 mg PO Q8H PRN #90 tab 04/30/19 Rx Strength] celecoxib 100 mg PO BID PRN #60 cap 04/30/19 Rx oxycodone 5 mg PO Q4H #15 tab 04/30/19 Rx Allergies Allergy/AdvReac Type Severity Reaction Status Date / Time No Known Allergies Allergy Unverified 04/30/19 09:00 Exam Const General: cooperative, healthy appearing and no acute distress Orientation: alert and oriented x3 HENMT Head: normal to inspection, no abrasions and no raccoon eyes Ears: hearing grossly normal bilaterally General nose exam: external nose normal and no nasal discharge noted Resp Effort & Inspection: normal respiratory effort, no audible wheezes and no cough Auscultation: clear to auscultation bilaterally Cardio Jugular venous pressure: no JVD Rate: regular rate Rhythm: regular rhythm Heart Sounds: S1 normal, S2 normal, no click and no murmurs GI Inspection: normal to inspection and non-distended Palpation: soft, no guarding and nontender Auscultation: normal bowel sounds Skin General skin exam: no rashes or lesions noted Neuro General: alert, oriented x3 and gait normal Cognition: normal cognition Speech: speech normal Results Last Vital Signs Temp 36.4 C L 04/30/19 09:02 Pulse 62 04/30/19 09:02 Resp 16 04/30/19 09:02 BP 143/82 H 04/30/19 09:02 Pulse Ox 100 04/30/19 09:02 Documented by User: Carlos Cancino MD 04/30/19 13:07 [facility] Social History (Updated 10/17/18 @ 07:57 by Reinaldo Russell) Smoking/Tobacco Use Status: Current-Occasional Tobacco Type: smokeless tobacco Smokeless tobacco user: chewing tobacco Alcohol Intake: current Alcohol Intake frequency: 0-2 drinks per day Alcohol type: hard liquor Details: 5/week Drug use: Never Caregiver/Support person: Yes Household members: spouse Housing: house Communication Needs: Hard of Hearing Pets and animals: No Sexually active: Yes Do you think of yourself as: straight/heterosexual Current gender identity: male What is your relationship status?: How often do you talk on the phone with friends or family?: three or more times per week How often do you get together with friends or relatives?: twice per week How often do you attend protestant or adventism services?: decline to answer Do you belong to any clubs or organized social groups?: no Panel score (0-1 are the most socially isolated patients): 2 What type of physical activity do you participate in: weight lifting Duration: 60-90 minutes/day Frequency: 3-4 times per week Drea/Restoration: No preference Special drea needs: No Do you feel safe at home: Yes Do you feel safe in your relationship?: Yes Meds Home Medications and Allergies Home Medications Medication Instructions Recorded Confirmed Type acetaminophen [Mapap Extra 1,000 mg PO Q8H PRN #90 tab 04/30/19 Rx Strength] celecoxib 100 mg PO BID PRN #60 cap 04/30/19 Rx oxycodone 5 mg PO Q4H #15 tab 04/30/19 Rx Allergies Allergy/AdvReac Type Severity Reaction Status Date / Time No Known Allergies Allergy Unverified 04/30/19 09:00
[2019-04-30] MEDS: Lactated Ringers 1,000 ML 80 ML IV (09:37)
[2019-04-30] MEDS: ceFAZolin 2 GM/50 ML BAG IVPB (11:45)
[2019-04-30] MEDS: EPINEPHrine 30 MG/30 ML VIAL (12:39)
[2019-04-30] MEDS: Bupivacaine 0.5% Pres-Free 30 ML VIAL (12:51)
--- NOTE | 2019-04-30 13:03 | W.PM.DSUDISC ---
Discharge Plan Disposition Patient Disposition: HOME Condition: Good Discharge Details Reason For Visit: s/p bilateral knee arthroscopic synovectomies Attending Provider: Carlos Cancino Primary Care Provider: Lindsey Herndon Home Meds and New Rx's Prescriptions: New oxycodone 5 mg tablet 5 mg PO Q4H Qty: 15 RF: 0 Continued acetaminophen [Mapap Extra Strength] 500 MG tablet 1,000 mg PO Q8H PRNQty: 90 RF: 0 celecoxib 100 mg capsule 100 mg PO BID PRNQty: 60 RF: 0 Discharge Instructions Stand Alone Forms: [facility] Referrals: Carlos Cancino MD [ [facility] STAFF PHYSICIAN] - Equipment/Supplies: Partial Weight Bearing Crutches Activity:: Activity as Tolerated Remove Dressings/Wound Care:: 72 hours Shower/Bathe:: 72 hours Diet:: As Tolerated Discharge Orders Discharge Orders: Discharge Order (Routine); Ordered 04/30/19 Ordered By: Carlos Cancino DS: Diagnosis Discharge Diagnosis (1) Arthrofibrosis of total knee arthroplasty: Status: Acute (2) Patellar clunk syndrome of right knee: Status: Acute
--- NOTE | 2019-05-01 19:50 | W.PM.OP ---
Date of service: 04/30/19 Time of Service: 14:50 Operative Note Operative Note DATE OF PROCEDURE: 04/30/19 PRE-OP DIAGNOSIS: Left Knee Arthrofibrosis and Right Knee Patellar Clunk POST-OP DIAGNOSIS: same PROCEDURE: Bilateral knee arthroscopic synovectomies SURGEON: Carlos Cancino ANESTHESIA: GETEnrique ESTIMATED BLOOD LOSS: 10 PATHOLOGY: none sent TOURNIQUET TIME: 0 COMPLICATIONS: None Patient was transported to: PACU Patient's condition: stable Indications: I have seen Genna in clinic for symptoms arthrofibrosis after a knee replacement on the left and patellar clunk on the right. Nonoperative measures were exhausted but disability and pain persisted. I discussed bilateral knee arthroscopy with synovectomies to remedy both pathologies. I reviewed the risks of the procedure to include, but not limited to, bleeding, infection, pain, stiffness, damage to nerves or vessels, recurrence, blood clot. Despite these risks, the patient elected to proceed. Findings: A diagnostic arthroscopy was performed on the left knee. This demonstrated some synovitis and notable scar tissue around the patella and in the suprapatellar pouch along with a band tying the medial retinaculum to the anterior knee and interposed between the polyethylene and medial femoral condyle. A diagnostic arthroscopy was performed on the right knee which demonstrated significant scarring around the patella along with a very large piece of scar tissue which was mobile and interposing between the patellar component and the trochlea. Procedure Description: Genna was greeted in the preoperative holding area where both knees were identified and marked. The consent was reviewed with the patient and signed. The history and physical was updated. All questions were answered. Genna was taken back to the operating room. The patient was placed into the supine position on the operating room table. Prophylactic antibiotics in the form of Cefazolin were administered. Both legs were then prepped with Chloraprep and draped in a standard fashion with bilateral extremity drape. A timeout to confirm correct identity, side and site, procedure, allergies, anesthesia, and medical concerns was performed. The left knee was first. The proposed portal sites were injected with 0.5% bupivacaine. A standard lateral portal was established. The scope was inserted into the knee atraumatically where we had excellent visualization. A second medial portal was established right away with spinal needle localization. Using a shaver I was able to debride some of the initial scar tissue and the need for better visualization behind the patellar tendon and around the patella. I then was able to see that there was some notable inflammatory tissue and scar tissue around the patella. There is no loose pieces. In the suprapatellar pouch, there was bands of scar tissue seen attached from the femur to the overlying quadriceps mechanism. There also was some attachments to the more medial lateral aspects. In the medial gutter there is a dense band of scar tissue seen attached to the medial aspect of the retinaculum and attaching into the anterior aspect of the knee joint with the band interposing itself between the metal of the medial femur and the polyethylene. Using electrocautery as well as virgen I debrided down the scar tissue from the medial gutter, anterior knee, and patella. I then focused on releasing the adhesions seen in the suprapatellar pouch with electrocautery. This allowed the quadriceps mechanism elevate showing good release. The remainder of the knee was inspected and I saw no significant signs of scar tissue or synovitis. Excess fluid was removed. The knee was gently manipulated into flexion while is able to easily gain 120 degrees. The wounds were then closed with a 4-0 nylon. 10 cc of 0.5% bupivacaine was injected into the knee joint. Attention was then turned to the right knee. In a similar fashion, the proposed portal sites were injected with 0.5% ropivacaine. A standard lateral portal was then established with good visualization. As expected, there is notable scar tissue and a second medial portal was formed with a spinal needle localization technique. There is significantly more scarring seen around the patella in this knee with a large pedunculated area scar tissue over the anterior lateral aspect which was interposing itself between the patella and the trochlea. I then used electrocautery as well as shaver to debride this tissue until is able see the entire periphery of the patellar button. This was worked medially and anteriorly and superiorly. To target the lateral tissues, establish a secondary lateral portal just superior to the patella. This was also done with spinal needle localization. This allowed better access to the lateral aspect patella where complete debridement of the scar tissue was performed. There did not appear to be any significant adhesions in the suprapatellar pouch. There also less there is a scar tissue seen in the medial lateral gutters but any excess tissue was debrided with a shaver. Knee motion was visualized and there was no interposing tissue. Appeared smooth. Excess fluid was removed. The portal sites were closed with a 4-0 nylon. The knee was injected with 0.5% bupivacaine. Both knees were then dressed with Xeroform, 4 x 4's, ABD, Kerlix, and Loco wrap. Genna tolerated the procedure well and was returned to the [facility] area in a stable condition suffering no known complication.
== END 2019-04-30 16:09 | disposition home or self-care (01) ==
PROVIDERS: PCP Family Medicine; Visit Provider Student in an Organized Health Care Education/Training Program
PROC: (CPT 29870; principal; 2019-04-30 11:30)
DX: T84.82XA Fibrosis due to internal orthopedic prosthetic devices, implants and grafts, initial encounter (principal); Z96.653 Presence of artificial knee joint, bilateral; M24.662 Ankylosis, left knee; M24.661 Ankylosis, right knee; M65.9 Synovitis and tenosynovitis, unspecified
CPT/HCPCS: 29876; NC; J0690; J1100; J1885; J2001; J2250; J2405; J2704

== ENCOUNTER 2019-05-11 09:03 | Emergency (ER) | payer MEDICARE, OTHER, SELFPAY ==
[2019-05-11] VITALS (23 sets, daily range): BP systolic 110–165; BP diastolic 51–108; PULSE 72–105; RESP 9–27; TEMP 37.2; O2SAT 100
--- NOTE | 2019-05-11 09:07 | W.ED.GENAD ---
Discharge Plan Disposition Patient Disposition: HOME Condition: Fair Discharge Details Chief Complaint: Palpitatns Clinical Impression: Anemia, Acute GI bleeding, Acute dehydration, Anxiety Primary Care Provider: Lindsey Herndon ED Provider: Cristiana Reilly Home Meds and New Rx's Prescriptions: New omeprazole 40 mg capsule,delayed release(DR/EC) 40 mg PO DAILY Qty: 14 RF: 0 Continued acetaminophen [Mapap Extra Strength] 500 MG tablet 1,000 mg PO Q8H PRNQty: 90 RF: 0 Discontinued celecoxib 100 mg capsule 100 mg PO BID PRNQty: 60 RF: 0 pantoprazole 20 mg Tablet,Delayed Release (Dr/Ec) 20 mg PO DAILY PRNRF: 0 No Action sucralfate [Carafate] 1 gram tablet 1 gm PO QACHS Qty: 120 RF: 1 sucralfate [Carafate] 1 gram Tablet 1 g PO BID RF: 0 Discharge Instructions Instructions: Gastrointestinal Bleeding (ED), Anemia (ED), Anxiety (ED) Additional Instructions: Encourage water intake. Please stop anti-inflammatories including Celebrex and the aspirin. Please take the omeprazole as prescribed. You are given 1 dose here and do not need further dose today. Plan for follow-up Monday with general surgery followed by endoscopy the following day. If you develop increased weakness, note large amount of blood per rectum or develop a/worsening symptoms please seek care urgently once again. Please try to avoid triggers such as spicy food, alcohol, caffeine. Referrals: Lindsey Herndon MD, [place] [Primary Care Provider] - Ayaka Brothers MD [ [facility] STAFF PHYSICIAN] - Discharge Data Discharge Date/Time-TO BE ENTERED AT DEPARTURE: 05/11/19 11:30 Medical Decision Making Patient is a pleasant 68-year-old male with history of bilateral TKR, multiple orthopedic surgeries, and depression. He reports that he underwent surgical intervention for bilateral knees 2 weeks ago. Had arthroscopy for removal of the lymph synovitis in the postoperative period that was leading to decreased range of motion. States that he was doing quite well. Has been increasing his activity., He began noting some lightheadedness particular when going from a lying or sitting position to a standing position. States that this then quickly subsides. He denies any chest pain. No shortness of breath. His is concerned that he has not been taking his aspirin as prescribed. Patient reports general fatigue as well as numbness and tingling in his bilateral upper extremities is intermittent. Not currently having these sensations. Unclear what brings this on. He denies any neck pain. Denies any recent trauma. Past medical history significant for anxiety, bilateral TKR. On exam, patient is resting comfortably. He appears nontoxic. He has a negative Spurling's exam, 5 out of 5 strength in the upper extremities with no sensory deficits noted at this time. Normal cardiac and respiratory exam. Normal abdominal exam. Incisions appear healing well with no signs of infection. EKG was reviewed by Dr. Darnell. Patient's normal sinus rhythm with a rate of 91. No acute changes are noted. Labs reviewed. Notable for hemoglobin of 8.1. Patient has never had anemia like this previously. BUN elevated at 30, patient is receiving fluids. Digital rectal exam was performed. Patient does have enlarged prostate which he reports he was aware of. Patient does have black stool in the rectal vault which was heme positive. Patient has been taking Celebrex as well as aspirin. Initially, he had denied symptoms associated with GI upset but he is now reporting having noted one black stool a few days ago. He is also reporting that he occasionally has abdominal bloating. He has been prescribed a PPI historically but has not been taking this medication. Abdomen is benign on exam. This could contribute however to the patient's lightheadedness particularly upon standing. Consulted with Dr. Ferreira, she advised she would assess the patient in the office on Monday and plan for EGD on Monday. She advised beginning the patient on a PPI, will give dose of Protonix while here. Encourage cessation of the aspirin Celebrex. Discussed these findings with the patient. Discussed recommendations. He was given strict return precautions. He will follow-up with general surgery as advised. Encourage hydration. He will stop offending agents that may be contributing to his bleeding ulcer. He was given strict return precautions. All of his questions and concerns were addressed and he is in agreement this plan. We did consider transfusion but as his hemoglobin is over 7 patient does not acute appear to be in any acute distress or have evidence of brisk bleeding, do not feel that the benefits outweigh the risks. HPI General Mode of arrival: ambulatory. Date/Time Provider Initiated Documentation: 05/11/19 09:07. Limitations to Documentation: no limitations. Information obtained by: patient, family () and RN notes reviewed. HPI Narrative: Patient is a 68 year old male presenting today with a multitude of fairly vague complaints. Initially been reported nursing staff patient was having palpitations. However, this sounds to have come from the and patient adamantly denies palpitations. He denies any chest pain. However, he does report feeling lightheaded, particularly when going from a sitting to standing position. Endorses intermittent numbness in his bilateral upper extremities. Denies any shortness of breath. No chest pain. No recent travel. Patient did undergo surgery in the right knee for excision of adhesions. States that his range of motion is greatly improved and he is feeling quite good in the postoperative period. His is concerned that he is only been taking the aspirin intermittently and not as prescribed. She is concerned that the patient may be at risk for pulmonary embolism is the source of his lightheadedness. Related Data Home Medications Medication Instructions Recorded Confirmed acetaminophen [Mapap Extra 1,000 mg PO Q8H PRN #90 tab 04/30/19 05/14/19 Strength] omeprazole 40 mg PO DAILY #14 cap 05/11/19 05/14/19 sucralfate 1 gram tablet 1 gm PO QACHS #120 tab 05/14/19 sucralfate [Carafate] 1 g PO BID 05/14/19 05/14/19 Previous Rx's Medication Instructions Recorded acetaminophen [Mapap Extra 1,000 mg PO Q8H PRN #90 tab 04/30/19 Strength] omeprazole 40 mg PO DAILY #14 cap 05/11/19 sucralfate 1 gram tablet 1 gm PO QACHS #120 tab 05/14/19 Allergies Allergy/AdvReac Type Severity Reaction Status Date / Time No Known Allergies Allergy Unverified 05/14/19 07:10 Review of Systems Constitutional Constitutional: Reports as per HPI, Denies chills, Denies fever(s), Denies headache(s), Denies lethargy and Denies poor appetite Eyes Eyes: Denies change in vision ENT Ears, Nose, Mouth, and Throat: Denies dizziness and Denies headache(s) Cardiovascular Cardiovascular: Reports as per HPI, Denies chest pain, Denies chest pain at rest, Denies chest pain with activity, Denies diaphoresis, Denies syncope, Denies pedal edema, Denies irregular heart rhythm, Denies claudication, Denies leg edema, Reports lightheadedness, Denies radiating jaw, neck or arm pain, Denies palpitations, Denies dyspnea and Denies dyspnea on exertion Respiratory Respiratory: Reports as per HPI, Denies chest congestion, Denies cough, Denies pain on inspiration, Denies pain with cough, Denies dyspnea, Denies dyspnea on exertion and Denies wheezing Gastrointestinal Gastrointestinal: Reports as per HPI, Denies abdominal pain, Denies diarrhea, Denies nausea and Denies vomiting Genitourinary Genitourinary: Denies system reviewed and no additional complaints, except as docu (denies change in urinary habits) Musculoskeletal Musculoskeletal: Reports as per HPI and Denies back pain Integumentary/Breasts Skin/Breast: Reports as per HPI and Denies rash Neurologic Neurologic: Reports as per HPI, Denies dizziness, Denies syncope, Denies headache(s) and Reports paresthesias Endocrine Endocrine: Denies palpitations Allergic/Immunologic Allergic/Immunologic: Denies wheezing [facility] Social History Smoking/Tobacco Use Status: Former Tobacco Use Quit Date: 03/27/75 Smokeless tobacco user: chewing tobacco Alcohol Intake: current Alcohol Intake frequency: 0-2 drinks per day Alcohol type: hard liquor Details: 5/week Drug use: Never Substance use type: does not use Details: currently uses smokeless tobacco quit cigarettes Caregiver/Support person: Yes Household members: spouse Housing: house Communication Needs: Hard of Hearing Pets and animals: No Sexually active: Yes Do you think of yourself as: straight/heterosexual Current gender identity: male What is your relationship status?: How often do you talk on the phone with friends or family?: three or more times per week How often do you get together with friends or relatives?: twice per week How often do you attend moravian or jewish services?: decline to answer Do you belong to any clubs or organized social groups?: no Panel score (0-1 are the most socially isolated patients): 2 What type of physical activity do you participate in: weight lifting Duration: 60-90 minutes/day Frequency: 3-4 times per week Drea/Tenriism: No preference Special drea needs: No Do you feel safe at home: Yes Do you feel safe in your relationship?: Yes Exam Const General: cooperative, healthy appearing, comfortable, no acute distress and well developed Nutritional Appearance: average body habitus and well nourished Orientation: alert, awake and oriented x3 [facility] Head: normal to inspection Ears: hearing grossly normal bilaterally Mouth: moist mucous membranes Chest Chest: normal inspection of the chest, normal palpation of entire chest wall and no crepitus Resp Effort & Inspection: normal respiratory effort, able to speak in complete sentences and no respiratory distress Auscultation: clear to auscultation bilaterally, no rales, no rhonchi and no wheezes Cardio Rate: regular rate Rhythm: regular rhythm Heart Sounds: S1 normal and S2 normal GI Inspection: normal to inspection, no edema and non-distended Palpation: soft, no hepatosplenomegaly, not firm, no guarding, not rigid and nontender Auscultation: normal bowel sounds Skin General skin exam: no rashes or lesions noted Trauma: no lacerations or abrasions Neuro General: alert, awake and oriented x3 Cognition: normal cognition Speech: speech normal Gait: normal gait Extrem General: normal to inspection, normal capillary refill, no pedal edema, no calf tenderness and normal gait Right lower extremity: normal to inspection (Incisions appear to be healing well with no signs of infection, no effusion) Psych Appearance: grossly normal and well kempt Mental Status: mental status grossly normal Speech and Movement: speech and movement normal
[2019-05-11 09:37] LABS: Abs Immature Grans 0.08 k/cumm (0.0-0.09); HCT 25.7 % (40.0-50.0); HGB 8.1 g/dL (13.5-17.5); Mean Corp. HGB Concentration 31.5 g/dL (32.0-36.0); Mean Corpuscular Hemoglobin 32.9 pg (27.0-33.0); Mean Corpuscular Volume 104.5 fL (80-95); Mean Platelet Volume 9.4 fL (8.0-11.0); Platelet Count 272 x1000/uL (130-400); RBC 2.46 m/cumm (4.50-6.00); RBC Distribution Width 12.8 % (11.8-14.1); White Blood Cell Count 9.46 k/cumm (4.4-10.8)
[2019-05-11 09:53] LABS: ALT 18 U/L (16-63); AST 15 U/L (15-37); Alkaline Phosphatase 76 U/L (46-116); Anion Gap 4.9 mmol/L (3-11); BUN 30 mg/dL (7-18); Bilirubin, Total 0.3 mg/dL (0.2-1.0); CO2 30.1 mmol/L (21.0-32.0); CREATININE 0.85 mg/dL (0.70-1.30); Calcium 8.1 mg/dL (8.5-10.1); Chloride 107 mmol/L (98-107); Glucose 131 mg/dL (74-106); Magnesium 1.8 mg/dL (1.8-2.4); Potassium 3.7 mmol/L (3.5-5.1); Sodium 142 mmol/L (136-145); Total Protein 5.5 g/dL (6.4-8.2); Troponin I < 0.05 ng/Ml (<0.06)
[2019-05-11 09:59] LABS: TSH (W/Ref FT4) 1.91 uIU/mL (0.36-3.74)
[2019-05-11] MEDS: LORazepam 0.5 MG TAB PO (10:03)
[2019-05-11 10:07] LABS: Absolute Eosinophil Count 0.09 k/cumm (0.0-0.7); Absolute Lymphocyte Count 2.55 k/cumm (1.2-3.4); Absolute Monocyte Count 1.04 k/cumm (0.11-0.7); Absolute Neutrophil Count 5.68 k/cumm (1.2-6.7); Nucleated RBC 1 /100WBC
[2019-05-11 10:08] LABS: Diff Comment Manual Differential; Hypochromasia 1+; Macrocytosis 2+; Polychromasia Present
[2019-05-11] MEDS: Normal Saline 1,000 ML 1000 ML IV (10:21)
[2019-05-11] MEDS: Pantoprazole 40 MG VIAL IVP (11:01)
== END 2019-05-11 11:30 | disposition home or self-care (01) ==
PROVIDERS: Emergency Provider Physician Assistant; PCP Family Medicine
DX: K92.2 Gastrointestinal hemorrhage, unspecified (principal); D64.9 Anemia, unspecified; E86.0 Dehydration; F41.9 Anxiety disorder, unspecified; Z96.653 Presence of artificial knee joint, bilateral
CPT/HCPCS: 36415; 80053; 93005; 96361; 96374; 99284; 83735; 84443; 84484; 85025; 93010; 99285

== ENCOUNTER → 2019-05-13 08:58 | Outpatient (BNVA) | payer MEDICARE, OTHER, SELFPAY | PROVIDERS: PCP Family Medicine; Referring Provider Family Medicine; Visit Provider Student in an Organized Health Care Education/Training Program | DX: Z47.89 Encounter for other orthopedic aftercare (principal); T84.82XA Fibrosis due to internal orthopedic prosthetic devices, implants and grafts, initial encounter ==

== ENCOUNTER → 2019-05-13 10:10 | Outpatient (BNVA) | payer MEDICARE, OTHER, SELFPAY | PROVIDERS: PCP Family Medicine; Referring Provider Family Medicine; Visit Provider Surgery | DX: D64.89 Other specified anemias (principal); K92.1 Melena | CPT/HCPCS: 99204; 99215 ==

== ENCOUNTER 2019-05-13 20:06 | Emergency (ER) | payer MEDICARE, OTHER, SELFPAY ==
[2019-05-13] VITALS (27 sets, daily range): BP systolic 90–134; BP diastolic 40–68; PULSE 72–86; RESP 13–24; TEMP 37; O2SAT 97–100
[2019-05-13 21:18] LABS: Abs Immature Grans 0.03 k/cumm (0.0-0.09); Absolute Basophil Count 0.02 k/cumm (0.0-0.2); Absolute Eosinophil Count 0.14 k/cumm (0.0-0.7); Absolute Lymphocyte Count 1.99 k/cumm (1.2-3.4); Absolute Monocyte Count 0.73 k/cumm (0.11-0.7); Absolute Neutrophil Count 5.99 k/cumm (1.2-6.7); Basophils % 0.2; Eosinophils % 1.6; HGB 7.4 g/dL (13.5-17.5); Immature Grans % 0.3 %; Lymphocytes % 22.4; Mean Corp. HGB Concentration 30.8 g/dL (32.0-36.0); Mean Corpuscular Hemoglobin 32.9 pg (27.0-33.0); Mean Corpuscular Volume 106.7 fL (80-95); Mean Platelet Volume 9.7 fL (8.0-11.0); Monocytes % 8.2; Neutrophils % 67.3; Platelet Count 296 x1000/uL (130-400); RBC 2.25 m/cumm (4.50-6.00); RBC Distribution Width 14.2 % (11.8-14.1)
[2019-05-13 21:40] LABS: Iron 43 ug/dL (65-175); Total Iron Binding Capacity 332 ug/dL (250-450); Transferrin Sat 13 % (20-55)
[2019-05-13] MEDS: Sucralfate 1 GM TAB PO (22:43)
--- NOTE | 2019-05-13 22:55 | W.ED.GENAD ---
Discharge Plan Disposition Patient Disposition: HOME Condition: Stable Discharge Details Chief Complaint: Vascular Clinical Impression: Leg swelling Primary Care Provider: Lindsey Herndon ED Provider: Earlene Jiménez Home Meds and New Rx's Prescriptions: No Action acetaminophen [Mapap Extra Strength] 500 MG tablet 1,000 mg PO Q8H PRNQty: 90 RF: 0 omeprazole 40 mg capsule,delayed release(DR/EC) 40 mg PO DAILY Qty: 14 RF: 0 Discharge Instructions Additional Instructions: Follow-up with ultrasound tomorrow as discussed. Follow-up with your upper endoscopy tomorrow as scheduled. Follow-up with your primary care doctor for lab findings Return for any difficulty breathing shortness of breath, chest pain, dizziness or worsening symptoms sooner if needed Discharge Data Discharge Date/Time-TO BE ENTERED AT DEPARTURE: 05/13/19 23:00 Medical Decision Making <Shilpi Kim DO - Last Filed: 05/13/19 23:00> Attending MDM: Patient also seen by me. I was asked to review patient labs. Patient has a history of black tarry stools with plan for EGD in the a.m. He has a history of daily alcohol use, and was taking Celebrex and aspirin status post recent bilateral knee arthroscopy. Recent hemoglobin 2 days ago 8.1. Hemoglobin today 7.4. Patient is hemodynamically stable. He has had chronic fatigue. He has no complaint of dyspnea or shortness of breath. Case discussed with surgery Dr. Kiser who agreed that if patient is hemodynamically stable with no acute GI bleeding or other acute complaints, to give a dose of Carafate with plan for discharge home and follow-up with planned EGD in the a.m. No plan for blood transfusion at this time. Patient feels good with this plan. Patient was here in the ED today for complaint of bilateral leg swelling. <JANEL Graham - Last Filed: 05/14/19 00:23> 68-year-old patient presenting to the emergency room for concern of DVT in the left lower leg. Patient specifically had his bilateral knees scoped with Dr. Cancino 2 weeks ago. Patient has notable effusions bilaterally and was concerned after his surgery with the possibility of a DVT as he in the last 24 hours has developed calf pain and reports swelling of the left leg greater than the right. Patient reports he typically does not have any evident swelling in his lower extremities. Patient denies numbness, tingling or weakness. Patient denies any associated difficulty breathing shortness of breath or wheezing. Patient is due to have EGD tomorrow for concern of upper GI bleed as he is anemic this is been followed closely by his PCP and is reporting dark stools. Called ultrasound to attempt to get ultrasound this evening however ultrasound is unavailable. Patient's PCP arrives at the bedside who is very familiar with him. She does not feel this is an emergency and feels ultrasound is reasonable to wait until tomorrow. She agrees that no blood thinners should be provided at this time given patient's current medical concerns of upper GI bleed for which patient is having a scope tomorrow. PCP did request a CBC and iron testing that she will follow-up with tomorrow. It is known that patient is currently anemic. Patient denies any increasing fatigue, shortness of breath, difficulty breathing. Patient appears hemodynamically stable, vital signs reviewed and are normal. We will order outpatient ultrasound for tomorrow to be followed up with in the emergency room and will hold on any anticoagulation at this time as I feel the risks outweigh the benefits. HPI <Shilpi Kim DO - Last Filed: 05/13/19 23:00> General Date/Time Provider Initiated Documentation: 05/13/19 20:09. Related Data Home Medications Medication Instructions Recorded Confirmed acetaminophen [Mapap Extra 1,000 mg PO Q8H PRN #90 tab 04/30/19 05/13/19 Strength] omeprazole 40 mg PO DAILY #14 cap 05/11/19 05/13/19 Previous Rx's Medication Instructions Recorded acetaminophen [Mapap Extra 1,000 mg PO Q8H PRN #90 tab 04/30/19 Strength] omeprazole 40 mg PO DAILY #14 cap 05/11/19 Allergies Allergy/AdvReac Type Severity Reaction Status Date / Time No Known Allergies Allergy Unverified 05/13/19 20:16 <JANEL Graham - Last Filed: 05/14/19 00:23> HPI Narrative: This is a very pleasant 68-year-old patient who is two-week status post scopes of bilateral knees. Patient presents this evening for onset of swelling of the left lower leg and calf pain associated in the left lower leg. Patient does report mild swelling of bilateral lower legs. Patient does report obvious knee effusions bilaterally. Patient is due to have an EGD tomorrow for concern of anemia and GI bleeding and concern of possible ulcer in the stomach as source of bleeding. Patient has had dark stools recently. Patient reports baseline fatigue with no new complaints of shortness of breath, chest pain, difficulty breathing shortness of breath or wheezing. Patient here this evening for concern of possible DVT in the left leg status post knee surgeries bilaterally. Patient has been taken off of all of his daily medications with the exception of Tylenol. Patient denies any recent injury or trauma to the leg. Patient denies skin changes. Patient reports earlier this evening the left calf was quite tense feeling and at this time that is improved. General Stated Complaint: Vascular TRAVIS: 2 <JANEL Graham - Last Filed: 05/14/19 00:23> All systems reviewed & are unremarkable except as noted in HPI and below Constitutional Constitutional: Reports fatigue and Denies headache(s) ENT Ears, Nose, Mouth, and Throat: Denies headache(s) Cardiovascular Cardiovascular: Denies chest pain, Reports leg edema (Left greater than right), Denies dyspnea and Denies dyspnea on exertion Respiratory Respiratory: Denies cough, Denies dyspnea and Denies dyspnea on exertion Gastrointestinal Gastrointestinal: Denies abdominal pain Musculoskeletal Musculoskeletal: Denies tingling Integumentary/Breasts Skin/Breast: Denies wounds Neurologic Neurologic: Denies headache(s), Denies tingling and Denies paresthesias Endocrine Endocrine: Reports fatigue PFSH <Shilpi Kim DO - Last Filed: 05/13/19 23:00> Medical History Acute pain of both shoulders (Inactive 10/26/16) Back pain with sciatica (Chronic) Colorectal polyp detected on colonoscopy (Chronic ~05/15/18) adenoma History of right inguinal hernia (Acute) Lipoma of abdominal wall (Acute) Lumbago (Chronic) 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) Sebaceous cyst (Acute) Social History Smoking/Tobacco Use Status: Former Tobacco Use Quit Date: 03/27/75 Smokeless tobacco user: chewing tobacco Alcohol Intake: current Alcohol Intake frequency: 0-2 drinks per day Alcohol type: hard liquor Details: 5/week Drug use: Never Substance use type: does not use Details: currently uses smokeless tobacco quit cigarettes Caregiver/Support person: Yes Household members: spouse Housing: house Communication Needs: Hard of Hearing Pets and animals: No Sexually active: Yes Do you think of yourself as: straight/heterosexual Current gender identity: male What is your relationship status?: How often do you talk on the phone with friends or family?: three or more times per week How often do you get together with friends or relatives?: twice per week How often do you attend jehovah's witness or jainism services?: decline to answer Do you belong to any clubs or organized social groups?: no Panel score (0-1 are the most socially isolated patients): 2 What type of physical activity do you participate in: weight lifting Duration: 60-90 minutes/day Frequency: 3-4 times per week Drea/Baptism: No preference Special drea needs: No Do you feel safe at home: Yes Do you feel safe in your relationship?: Yes <JANEL Graham - Last Filed: 05/14/19 00:23> Narrative Exam Narrative: CONST: Healthy appearing patient, in no acute distress. Well hydrated. Alert and oriented. HENMT: Head nomocephalic, normal to inspection. Atraumatic. Hearing grossly normal. EYES: General normal appearance. Alignment normal. Eyelids normal. Conjunctiva normal. NECK: Normal visual inspection. FROM. Trachea midline. No Midline tenderness. CHEST: Normal insepection of the chest. RESP: Normal respiratory effort. Speaking full sentences. No cough. No audible wheezing. No retractions. MUSCULOSKELETAL: Normal Gait. FROM of all extremities. Bilateral knee effusions present. No obvious warmth or erythema of joints. Patient has intact flexion extension of knees bilaterally. No significant edema specifically no pitting edema of legs bilaterally. Patient reports fullness of his calf. No pain with palpation at this time. Negative Homans bilaterally. Distal neurovascularly intact. Pulses intact and strong bilaterally. No obvious skin changes present. SKIN: Normal. Dry. No rashes. NEURO: Alert and awake. Speech clear. PSYCH: Normal affect. Cooperative. <JANEL Graham - Last Filed: 05/14/19 00:23> Vital Signs Vital signs: Vital Signs Temperature 37 C 05/13/19 20:08 Pulse 84 05/13/19 20:08 Respiratory Rate 18 05/13/19 20:08 Blood Pressure 132/63 05/13/19 20:08 Pulse Oximetry 100 05/13/19 20:08 Temperature 37 C 05/13/19 20:08 Temperature Source Skin 05/13/19 20:08 Pulse 72 05/13/19 22:31 Pulse 72 05/13/19 22:31 Respiratory Rate 19 05/13/19 22:31 Respiratory Effort 05/13/19 20:20 Respiratory Depth Normal 05/13/19 20:20 Respiratory Pattern Normal 05/13/19 20:20 Blood Pressure 114/56 L 05/13/19 22:31 Blood Pressure Mean 69 05/13/19 22:31 Pulse Oximetry 97 05/13/19 22:31 Oxygen Delivery Method Room Air 05/13/19 22:02 Oxygen Flow Rate 0 05/13/19 22:02 Pain Level 0 05/13/19 22:49 Lab/Test Results Lab/Test Results: Laboratory Tests Range/Units 05/13/19 05/13/19 21:00 21:00 WBC (4.4-10.8) k/cumm 8.90 RBC (4.50-6.00) m/cumm 2.25 L Hgb (13.5-17.5) g/dL 7.4 L Hct (40.0-50.0) % 24.0 L MCV (80-95) fL 106.7 H MCH (27.0-33.0) pg 32.9 MCHC (32.0-36.0) g/dL 30.8 L RDW (11.8-14.1) % 14.2 H Plt Count (130-400) x1000/uL 296 MPV (8.0-11.0) fL 9.7 Immature Gran % % 0.3 Neutrophils % 67.3 Lymphocytes % 22.4 Monocytes % 8.2 Eosinophils % 1.6 Basophils % 0.2 Absolute Neutrophils (1.2-6.7) k/cumm 5.99 Absolute Lymphocytes (1.2-3.4) k/cumm 1.99 Absolute Monocytes (0.11-0.7) k/cumm 0.73 H Absolute Eosinophils (0.0-0.7) k/cumm 0.14 Absolute Basophils (0.0-0.2) k/cumm 0.02 Iron (65-175) ug/dL 43 L TIBC (250-450) ug/dL 332 Transferrin % Sat (20-55) % 13 L
== END 2019-05-13 23:00 | disposition home or self-care (01) ==
PROVIDERS: Emergency Provider Physician Assistant; PCP Family Medicine
DX: M79.89 Other specified soft tissue disorders (principal); Z96.653 Presence of artificial knee joint, bilateral
CPT/HCPCS: 99215; 99283; 83540; 83550; 85025

== ENCOUNTER 2019-05-14 06:52 | Day surgery (SDC) | payer MEDICARE, OTHER, SELFPAY ==
[2019-05-14 07:13] VITALS: BP 112/70; PULSE 65; RESP 16; TEMP 36.2; O2SAT 100
[2019-05-14] MEDS: Lactated Ringers 1,000 ML 80 ML IV (07:35)
[2019-05-14 07:37] LABS: HCT 24.2 % (40.0-50.0); HGB 7.5 g/dL (13.5-17.5)
--- NOTE | 2019-05-14 07:40 | W.PM.DSUDISC ---
Discharge Plan Disposition Patient Disposition: HOME Condition: Good Discharge Details Reason For Visit: EGD Attending Provider: Ayaka Brothers Primary Care Provider: Lindsey Herndon Home Meds and New Rx's Prescriptions: Continued acetaminophen [Mapap Extra Strength] 500 MG tablet 1,000 mg PO Q8H PRNQty: 90 RF: 0 omeprazole 40 mg capsule,delayed release(DR/EC) 40 mg PO DAILY Qty: 14 RF: 0 sucralfate [Carafate] 1 gram Tablet 1 g PO BID RF: 0 Discharge Instructions Additional Instructions: Findings: A large, non-bleeding duodenal ulcer was present. Follow up: Call if you have any dizziness/fainting, chest pain, continued black stools or abdominal pain. Plan to come in for outpatient blood work on Monday. My office will send an order. Do not take any anti-inflammatory medications or drink alcohol for two months. Please call if you develop: fevers >101.5 Nausea or Vomiting Abdominal pain that is not transient DAY SURGERY UNIT POST EGD INSTRUCTIONS 1. Because there will be medication in your system for the next 24 hours, you may feel a little sleepy. Your coordination will be affected. Therefore: a. Do not drive or operate dangerous equipment for 24 hours. b. Do not drink alcohol beverages for 24 hours (not even beer). c. Plan to go home and rest for the day. 2. Generally there are no restrictions on your activity after a day or so has gone by, but you may feel a bit fatigued for a few days. 3 After you arrive home you may have a light meal and return to a normal diet as you can tolerate it without feeling sick to your stomach. 4. After surgery, you may feel pain or discomfort. This should be only transient, but if it persists please contact your doctor. 5. If there are any questions regarding the findings of your procedure, please feel free to contact your doctor. 6. If you are unable to contact your doctor with a problem, contact the hospital at [phone]. 7. Continue all your regular medications unless directed otherwise. I understand the above instructions and have no questions. Signature of Patient or Responsible Adult Escort Date/Time Name of Responsible Adult Escort Signature of Nurse Date/Time Activity:: Activity as Tolerated Diet:: As Tolerated Discharge Orders Discharge Orders: Discharge Order (Routine); Ordered 05/14/19 Ordered By: Ayaka Brothers DS: Diagnosis Discharge Diagnosis (1) Duodenal ulcer: Status: Acute
--- NOTE | 2019-05-14 08:00 | STOM_PTH ---
PATIENT: Genna Gomez LOC: [facility] U#:[id number] AGE/SX: 68/M ROOM: RE05/14/[address]: Ayaka Brothers MD : 1950 BED: DIS: 05/14/2019 SPEC #: [id number] RECD: 05/14/19 12:43 STATUS: MOISÉS REQ #: [id number] DONIS: 05/14/19 08:[address]: Ayaka Brothers DEPT: Surgical Specimen RECD BY: Amara Espana ENTERED: 05/14/19 12:44 SP TYPE: STOMACH OTHR DR: Lindsey Herndon MD, DC Tissues: 1 - BIOPSY BOWEL 2 - STOMACH BIOPSY Procedures: GROSS AND MICRO LEVEL 4 Comments: [id number]
[2019-05-14 08:30] VITALS: BP 116/54; PULSE 68; RESP 16; TEMP 35.9; O2SAT 100
--- NOTE | 2019-05-14 10:48 | ENDO_ITS ---
DATE OF PROCEDURE: May 14, 2019 PREOPERATIVE DIAGNOSIS: 1. Anemia. 2. Melena. POSTOPERATIVE DIAGNOSIS: Duodenal ulcer. PROCEDURE: EGD with biopsy of duodenal ulcer and gastric biopsy. SURGEON: Ayaka Brothers M.D. ANESTHESIA: General. INDICATIONS: This is a 68-year-old man who presented recently not feeling well. His hemoglobin was found to be 8.1. He also reports a history of black stools. The patient has been on Meloxicam for m any years. He also has approximately two alcoholic drinks nightly. PROCEDURE: He was placed in the left lateral decubitus position. Propofol was titrated to sedation. The scope was advanced into his esophagus under direct visualization and down into the stomach and duodenum. There was a large, chronic-appearing ulcer between the duodenal bulb and second portion of the duodenum. There was no stigmata of recent bleeding, including no clot or visible vessel. The periphery was biopsied. The stomach itself appeared normal, including on retroflex view of the fundu s and lesser curvature. Biopsies were taken from the gastric antrum to evaluate for H. pylori. The GE junction showed no evidence of inflammation, masses, Alcantara's or strictures. The air was suction ed from the stomach and the scope withdrawn with no other esophageal lesions found. He tolerated the procedure well and was stable to recovery. He will continue his proton pump inhibitor and Carafate. He has stopped using all NSAID's and drinki ng alcohol. cc: Lindsey Herndon M.D.
== END 2019-05-14 08:42 | disposition home or self-care (01) ==
PROVIDERS: PCP Family Medicine; Visit Provider Surgery
PROC: 0DJ68ZZ Inspection of Stomach, Via Natural or Artificial Opening Endoscopic (ICD-10-PCS; CPT 43235; principal; 2019-05-14 08:15)
DX: D64.9 Anemia, unspecified (principal); K92.1 Melena; K29.80 Duodenitis without bleeding; K31.89 Other diseases of stomach and duodenum; R22.43 Localized swelling, mass and lump, lower limb, bilateral; M71.21 Synovial cyst of popliteal space [Baker], right knee
CPT/HCPCS: 43239; 86850; 86900; 86901; 88305; 85014; 85018; 93970; J2001

== ENCOUNTER 2019-05-14 08:17 | Outpatient (CLI) | payer MEDICARE, OTHER, SELFPAY ==
--- NOTE | 2019-05-14 | DI.US_ITS ---
EXAM: US EXTREMITY VENOUS BI CLINICAL HISTORY: BILAT LEG SWELLING, POST OP. TECHNIQUE: Bilateral lower extremity venous ultrasound performed using grayscale, color-flow, and sp ectral Doppler analysis. FINDINGS: The bilateral common femoral, femoral and popliteal veins demonstrate normal compressibility, augment ation, and color Doppler. The posterior tibial veins are patent. The saphenofemoral junctions are un remarkable. There is a 3.5 x 0.8 x 2.3 cm To's cyst on the right. IMPRESSION: Right: Negative for DVT Left: Negative for DVT
== END 2019-05-14 08:37 ==
PROVIDERS: PCP Family Medicine; Visit Provider Physician Assistant
DX: R22.43 Localized swelling, mass and lump, lower limb, bilateral (principal); M71.21 Synovial cyst of popliteal space [Baker], right knee
CPT/HCPCS: 93970

== ENCOUNTER 2019-05-17 10:21 | Outpatient (CLI) | payer MEDICARE, OTHER, SELFPAY ==
[2019-05-17 13:14] LABS: HGB 8.5 g/dL (13.5-17.5)
== END 2019-05-17 10:41 ==
PROVIDERS: PCP Family Medicine; Visit Provider Surgery
DX: D64.9 Anemia, unspecified (principal)
CPT/HCPCS: 36415; 85018

== ENCOUNTER 2019-05-22 01:40 | Outpatient (CLI) | payer MEDICARE, OTHER, SELFPAY ==
--- NOTE | 2019-05-22 08:45 | DI.US_ITS ---
EXAM: US HERNIA CLINICAL HISTORY: groin pain R10.31 RLQ PAIN, R10.32 LLQ PAIN TECHNIQUE: Ultrasound performed using standard protocol. COMPARISON: No exams were available for comparison FINDINGS: A reducible fatty hernia is noted in the right inguinal canal. The diameter measures approximately 11 millimeters. There is no evidence fluid within the inguinal canal. IMPRESSION: Reducible small fatty inguinal hernia. DATA REPOSITORY:
--- NOTE | 2019-05-22 08:45 | DI.US_ITS ---
EXAM: US SCROTUM CLINICAL HISTORY: Eval for bilateral recurrent hernia/testicle prob N50.819 TESTICULAR PAIN TECHNIQUE: Ultrasound performed using standard protocol. COMPARISON: US HERNIA from 05/22/2019 FINDINGS: The testicles are normal in size and overall echogenicities. There are small bilateral hydroceles. A 7 millimeter tunica albuginea cyst is seen on the right testicle. There is no evidence of testicu lar mass or torsion. The 2.6 centimeter cyst is seen at the right epididymal head. Multiple other s maller epididymal head cysts are seen. The left epididymis is unremarkable. IMPRESSION: 2.6 centimeter epididymal head cyst. Small bilateral hydroceles. Small tunica albuginea cyst of the right testicle. DATA REPOSITORY:
== END 2019-05-22 02:00 ==
PROVIDERS: PCP Family Medicine; Visit Provider Surgery
DX: N50.819 Testicular pain, unspecified (principal); N50.3 Cyst of epididymis; N43.3 Hydrocele, unspecified; N44.1 Cyst of tunica albuginea testis; R10.31 Right lower quadrant pain; R10.32 Left lower quadrant pain; K40.90 Unilateral inguinal hernia, without obstruction or gangrene, not specified as recurrent
CPT/HCPCS: 76857; 76870

== ENCOUNTER 2019-05-28 03:56 | Outpatient (CLI) | payer MEDICARE, OTHER, SELFPAY ==
[2019-05-28 13:36] LABS: HCT 34.1 % (40.0-50.0); HGB 10.3 g/dL (13.5-17.5)
== END 2019-05-28 04:16 ==
PROVIDERS: PCP Family Medicine; Visit Provider Family Medicine
DX: K26.9 Duodenal ulcer, unspecified as acute or chronic, without hemorrhage or perforation (principal)
CPT/HCPCS: 36415; 85014; 85018

== ENCOUNTER 2019-07-04 01:05 | Outpatient (CLI) | payer MEDICARE, OTHER, SELFPAY ==
[2019-07-04 10:53] LABS: Abs Immature Grans 0.01 k/cumm (0.0-0.09); Absolute Basophil Count 0.01 k/cumm (0.0-0.2); Absolute Eosinophil Count 0.13 k/cumm (0.0-0.7); Absolute Lymphocyte Count 1.52 k/cumm (1.2-3.4); Absolute Monocyte Count 0.69 k/cumm (0.11-0.7); Basophils % 0.2; Eosinophils % 2.1; HGB 14.1 g/dL (13.5-17.5); Immature Grans % 0.2 %; Lymphocytes % 25.1; Mean Corpuscular Volume 93.6 fL (80-95); Mean Platelet Volume 9.9 fL (8.0-11.0); Monocytes % 11.4; Platelet Count 222 x1000/uL (130-400); RBC Distribution Width 13.1 % (11.8-14.1); White Blood Cell Count 6.06 k/cumm (4.4-10.8)
== END 2019-07-04 01:25 ==
PROVIDERS: PCP Family Medicine; Visit Provider Surgery
DX: K92.1 Melena (principal); K26.9 Duodenal ulcer, unspecified as acute or chronic, without hemorrhage or perforation
CPT/HCPCS: 36415; 85018; 85025

== ENCOUNTER → 2019-07-18 10:46 | Outpatient (BNVA) | payer MEDICARE, OTHER, SELFPAY | PROVIDERS: PCP Family Medicine; Referring Provider Family Medicine; Visit Provider Student in an Organized Health Care Education/Training Program | DX: G56.22 Lesion of ulnar nerve, left upper limb (principal); G56.01 Carpal tunnel syndrome, right upper limb; G56.02 Carpal tunnel syndrome, left upper limb; T84.82XD Fibrosis due to internal orthopedic prosthetic devices, implants and grafts, subsequent encounter; Z47.89 Encounter for other orthopedic aftercare; Z96.653 Presence of artificial knee joint, bilateral | CPT/HCPCS: 99213; L3908 ==

== ENCOUNTER 2019-10-14 07:22 | Outpatient (CLI) | payer MEDICARE, OTHER, SELFPAY ==
[2019-10-19 00:58] LABS: SARS-CoV-2 RNA Undetected (Undetected); SARS-CoV-2 Specimen Source Nasopharynx
== END 2019-10-14 07:42 ==
PROVIDERS: PCP Family Medicine; Visit Provider Family Medicine
DX: Z11.59 Encounter for screening for other viral diseases (principal)
CPT/HCPCS: U0003

== ENCOUNTER 2019-11-11 07:38 | Outpatient (CLI) | payer MEDICARE, OTHER, SELFPAY ==
[2019-11-13 21:33] LABS: SARS-CoV-2 RNA Undetected (Undetected); SARS-CoV-2 Specimen Source Nasopharynx
== END 2019-11-11 07:58 ==
PROVIDERS: PCP Family Medicine; Visit Provider Family Medicine
DX: Z11.59 Encounter for screening for other viral diseases (principal)
CPT/HCPCS: U0003

== ENCOUNTER 2019-11-22 10:10 | Outpatient (REF) | payer MEDICARE, OTHER, SELFPAY | END 2019-11-22 10:30 | LOC: LOS 10:10 | PROVIDERS: PCP Family Medicine; Visit Provider Family Medicine | DX: R19.7 Diarrhea, unspecified (principal) | CPT/HCPCS: 87329 ==

== ENCOUNTER 2020-04-09 02:38 | Outpatient (CLI) | payer MEDICARE, OTHER, SELFPAY ==
[2020-04-10 15:26] LABS: COVID-19 RT-PCR Result NEGATIVE (Negative)
== END 2020-04-09 02:58 ==
PROVIDERS: PCP Family Medicine; Visit Provider Otolaryngology Otolaryngology/Facial Plastic Surgery
DX: Z11.52 Encounter for screening for COVID-19 (principal); Z01.818 Encounter for other preprocedural examination
CPT/HCPCS: U0003

== ENCOUNTER 2020-04-13 06:12 | Day surgery (SDC) | payer MEDICARE, OTHER, SELFPAY ==
[2020-04-13 06:31] VITALS: BP 147/86; PULSE 66; RESP 14; TEMP 36.5; O2SAT 98
[2020-04-13] MEDS: Lactated Ringers 1,000 ML 80 ML IV (07:05)
[2020-04-13] MEDS: Dexamethasone 10 MG/ML VIAL IVP (07:12)
[2020-04-13] MEDS: ceFAZolin 2 GM/50 ML BAG IVPB (07:38)
--- NOTE | 2020-04-13 07:55 | SKI_PTH ---
PATIENT: Genna Gomez LOC: [facility] U#:[id number] AGE/SX: 69/M ROOM: RE04/13/[address]: Bar Grady DO : 1950 BED: DIS: 04/13/2020 SPEC #: [id number] RECD: 04/13/20 12:15 STATUS: MOISÉS REQ #: [id number] DONIS: 04/13/20 07:[address]: Bar Grady DEPT: Surgical Specimen RECD BY: Amara Espana ENTERED: 04/13/20 12:17 SP TYPE: SKI OTHR DR: Lindsey Herndon MD, DC Tissues: 1 - SKIN BIOPSY(SHAVE/PUNCH) Procedures: GROSS AND MICRO LEVEL 4 Comments: [id number]
--- NOTE | 2020-04-13 08:10 | ROE_ITS ---
Operative Note Operative Note DATE OF PROCEDURE: 04/13/20 PRE-OP DIAGNOSIS: Right medial facial creease skin mass POST-OP DIAGNOSIS: same PROCEDURE: Excision of right nasal crease mass, intermediate closure, 3.6 cm SURGEON: Bar Grady ANESTHESIA: GETA ESTIMATED BLOOD LOSS: 2 COMPLICATIONS: None Patient was transported to: PACU Patient's condition: stable Indications: Enlarging nasal facial crease skin mass with cutaneous track and de ep components, decision was made for to proceed with surgery, patient has elected sedation. Consent was placed in the chart Findings: Sebaceous type skin cyst, cutaneous track and capsule excised Procedure Description: Patient was brought back to operative suite in stable condition placed supine on the table given IV sedation, classified as General. Timeout was taken to confirm preparation procedure. 4 cc of 1% lidocaine with 1 100,000 epinephrine was injected into the right nasofacial crease. Cutaneous track was marked outlined. Total excision was 3.6 cm. 15 blade scalpel was used to excise this with her complete capsule and cutaneous tract. Hemostasis controlled with electrocautery. Intermediate closure double layer fashion was closed with 4-0 Monocryl and 4-0 nylon. Patient tolerated procedure well stable to PACU.
--- NOTE | 2020-04-13 08:13 | W.PM.DSUDISC ---
Discharge Plan Discharge Details Attending Provider: Bar Grady Primary Care Provider: Lindsey Herndon Home Meds and New Rx's Prescriptions: No Action tamsulosin 0.4 mg capsule 0.4 mg PO QHS Qty: 90 RF: 5 acetaminophen [Mapap Extra Strength] 500 MG tablet 1,000 mg PO Q8H PRNQty: 90 RF: 0 Discharge Instructions Remove Dressings/Wound Care:: 24 hours Shower/Bathe:: 24 hours Diet:: As Tolerated
[2020-04-13 08:50] VITALS: BP 123/67; PULSE 53; RESP 16; TEMP 36.2; O2SAT 98
== END 2020-04-13 10:07 | disposition home or self-care (01) ==
PROVIDERS: PCP Family Medicine; Visit Provider Otolaryngology Otolaryngology/Facial Plastic Surgery
PROC: 0HB1XZZ Excision of Face Skin, External Approach (ICD-10-PCS; CPT 21012; principal; 2020-04-13 07:30)
DX: L72.8 Other follicular cysts of the skin and subcutaneous tissue (principal)
CPT/HCPCS: 21012; 88305; J0690; J1100; J2704

== ENCOUNTER 2020-04-14 11:22 | Outpatient (CLI) | payer MEDICARE, OTHER, SELFPAY ==
--- NOTE | 2020-04-14 11:15 | DI.RAD_ITS ---
EXAM: XR SHOULDER LT COMPLETE 2+V CLINICAL HISTORY: L shoulder pain. TECHNIQUE: 2D digital imaging was performed. COMPARISON: No exams were available for comparison FINDINGS: Lqfu-me-hvptyryo degenerative changes are seen at the acromioclavicular joint. Mild periarticular sp urring is seen at the glenohumeral joint. Calcifications are seen in the soft tissues adjacent to th e greater tuberosity consistent with calcific tendinitis. The bones are intact and normally minerali zed. The soft tissues are otherwise unremarkable. IMPRESSION: Degenerative changes seen in the left shoulder. DATA REPOSITORY: RADIATION DOSE DELIVERED:
== END 2020-04-14 11:42 ==
PROVIDERS: PCP Family Medicine; Referring Provider Family Medicine; Visit Provider Physician Assistant
DX: M19.012 Primary osteoarthritis, left shoulder (principal); M75.82 Other shoulder lesions, left shoulder; M75.81 Other shoulder lesions, right shoulder; M75.32 Calcific tendinitis of left shoulder
CPT/HCPCS: 20610; 99214; 73030; J1040

== ENCOUNTER 2020-08-05 01:53 | Outpatient (CLI) | payer MEDICARE, OTHER, SELFPAY ==
--- NOTE | 2020-08-05 08:00 | DI.RAD_ITS ---
Exam(s) XR LUMBAR SPINE COMPLETE EXAM: XR LUMBAR SPINE COMPLETE CLINICAL HISTORY: left LBP and left leg pain,M54.5. TECHNIQUE: 2D digital imaging was performed. COMPARISON: No exams were available for comparison FINDINGS: There is no evidence of fracture or listhesis. Multilevel moderate disc space narrowing. This is mo st prominent on the left side at the L2-3 level and there also marginal osteophytes at this level on the left side noted. Bone density normal. No osseous lesions. Degenerative changes the facet joint s of the lower 3 levels is noted. Sacroiliac joints unremarkable. IMPRESSION: Degenerative disc disease. DATA REPOSITORY: RADIATION DOSE DELIVERED:
--- NOTE | 2020-08-05 08:00 | DI.RAD_ITS ---
Exam(s) XR HIP LT COMPLETE AP PELVIS EXAM: XR HIP LT COMPLETE AP PELVIS CLINICAL HISTORY: left hip pain,M25.552. TECHNIQUE: 2D digital imaging was performed. COMPARISON: CR LEFT HIP COMPLETE from 06/09/2008 FINDINGS: There is no evidence of pelvic fracture. No hip fracture. Degenerative subarticular cysts are noted in the superolateral aspects of both hip acetabuli, as were evident in 2008. Very faint calcificati on noted left acetabulum which possibly may represent labral calcification or intra-articular body. There are small marginal osteophytes seen in the left femoral head on the lateral view. No ominous o sseous lesions. No joint space narrowing. IMPRESSION: DATA REPOSITORY: RADIATION DOSE DELIVERED:
== END 2020-08-05 02:13 ==
PROVIDERS: PCP Family Medicine; Visit Provider Family Medicine
DX: M54.5 Low back pain (principal); M79.605 Pain in left leg; M51.36 Other intervertebral disc degeneration, lumbar region; M25.552 Pain in left hip; M25.752 Osteophyte, left hip
CPT/HCPCS: 72110; 73502

== ENCOUNTER 2021-06-10 01:48 | Outpatient (CLI) | payer MEDICARE, OTHER, SELFPAY ==
--- NOTE | 2021-06-10 14:05 | DI.RAD_ITS ---
Exam(s) XR SHOULDER LT COMPLETE 2+V EXAM: XR SHOULDER LT COMPLETE 2+V CLINICAL HISTORY: left shoulder pain,m75.32,calcific tendinitis. TECHNIQUE: 2D digital imaging was performed. COMPARISON: CR XR SHOULDER LT COMPLETE 2+V from 04/14/2020 FINDINGS: Five views There is no evidence of fracture or dislocation. Mild-moderate degenerative changes are noted in the glenohumeral joint. There is no prominent joint space narrowing but there are small osteophytes on the inferior articular surface of the humeral head and osseous glenoid again noted. The subacromial space is not diminished but there is again noted calcification in the soft tissues ju st above the greater tuberosity on the lateral aspect of the humeral head consistent with calcific te ndinitis-bursitis. There are minimal degenerative changes in the AC joint. No ominous osseous lesio ns. IMPRESSION: Mild-moderate degenerative changes in the glenohumeral joint. Calcific rotator cuff tendinosis. Minimal if any significant change when compared to 04/14/2020. DATA REPOSITORY: RADIATION DOSE DELIVERED:
--- NOTE | 2021-06-10 14:10 | DI.RAD_ITS ---
Exam(s) XR CERVICAL SPINE COMP 4-5V EXAM: XR CERVICAL SPINE COMP 4-5V CLINICAL HISTORY: neck pain and left shoulder pain,m54.2. TECHNIQUE: 2D digital imaging was performed. COMPARISON: No exams were available for comparison FINDINGS: Five views There is no evidence of fracture or listhesis. Mild disc space narrowing and anterior osseous lipping at C4-5 and C5-6 and C6-7 levels. Some Luschk a joint osteophytes are also noted bilaterally at these levels. Bone density normal. No osseous les ions. Calcification is seen in the posterior soft tissues, this dorsal to the spinous process is. No cervical ribs IMPRESSION: Chronic degenerative disc disease. DATA REPOSITORY: RADIATION DOSE DELIVERED:
== END 2021-06-10 02:08 ==
PROVIDERS: PCP Family Medicine; Visit Provider Family Medicine
DX: M25.512 Pain in left shoulder; M75.32 Calcific tendinitis of left shoulder; M50.321 Other cervical disc degeneration at C4-C5 level; M50.322 Other cervical disc degeneration at C5-C6 level; M50.323 Other cervical disc degeneration at C6-C7 level; M19.012 Primary osteoarthritis, left shoulder
CPT/HCPCS: 72050; 73030

== ENCOUNTER 2021-06-23 01:54 | Outpatient (CLI) | payer MEDICARE, OTHER, SELFPAY ==
--- NOTE | 2021-06-23 07:15 | DI.MRI_ITS ---
Exam(s) MR UPPER JOINT LT WO CLINICAL HISTORY: l rotator cuff tear - wants to have surgery M75.81 SHOULDER LESIONS M75.100. TECHNIQUE: Multiplanar multisequence MRI was performed. COMPARISON: None FINDINGS: MR examination of the shoulder was performed according to the usual protocol. There is a small effusion of the glenohumeral joint. Minimal fluid in the subacromial subdeltoid bur sa. Bones and labrum: There is prominent hypertrophic change at the acromioclavicular joint with signal a bnormalities in adjacent marrow period there is subchondral marrow edema and cyst formation at the gr eater tuberosity of the humerus consistent with degenerative change. There is marked thinning of the articular cartilage at the glenohumeral joint and the glenoid labrum appears deficient and diffusely effaced. Rotator cuff: There is thickening and abnormal signal of the supraspinatus tendon consistent with te ndinosis. There is minimal undersurface tearing of 3-4 millimeters of the supraspinatus footprint. There is mildly abnormal signal and thickening of infraspinatus tendon with minimal undersurface tear ing at the infraspinatus insertion on humeral head as well. No full-thickness tear seen. No retract ion. Mild subscapularis tendinosis appears to be present. Rotator interval structures show some abnormal signal with no gross tear identified. Biceps tendon and anchor: Biceps tendon and anchor show mildly abnormal signal and no evidence of a t ear. Biceps tendon is normally positioned in the bicipital groove. IMPRESSION: Severe degenerative changes at glenohumeral joint and acromioclavicular joint period Supraspinatus and infraspinatus tendinosis with minimal Jackeline attachment undersurface tearing, no full -thickness tear or retraction. No evidence of muscle atrophy. DATA REPOSITORY:
== END 2021-06-23 02:14 ==
PROVIDERS: PCP Family Medicine; Visit Provider Family Medicine
DX: M75.102 Unspecified rotator cuff tear or rupture of left shoulder, not specified as traumatic; M19.012 Primary osteoarthritis, left shoulder
CPT/HCPCS: 73221

== ENCOUNTER → 2021-08-02 10:12 | Outpatient (BNVA) | payer MEDICARE, OTHER, SELFPAY | PROVIDERS: PCP Family Medicine; Referring Provider Family Medicine; Visit Provider Student in an Organized Health Care Education/Training Program | DX: M75.22 Bicipital tendinitis, left shoulder (principal); M75.82 Other shoulder lesions, left shoulder; M75.32 Calcific tendinitis of left shoulder | CPT/HCPCS: 99212 ==

== ENCOUNTER → 2021-08-12 01:50 | Outpatient (CLI) | payer MEDICARE, OTHER, SELFPAY ==
--- NOTE | 2021-08-12 15:29 | DI.RAD_ITS ---
Exam(s) RF JOINT INJECTION FLUORO GUID EXAM: RF JOINT INJECTION FLUORO GUID CLINICAL HISTORY: L SHOULDER INJ UNDER FLUORO,LT SHOULDER PAIN,TENDINITIS,M25.512 TECHNIQUE: 2D and realtime digital imaging was performed. CONTRAST MATERIAL: Water soluble contrast was administered. COMPARISON: No exams were available for comparison FINDINGS: Fluoroscopy was provided for Dr. Cancino during the performance of a left shoulder injection. Plea se refer to the procedure report for complete details. RADIATION DOSE DELIVERED: jolie Rosenbaum=0.15 mGy
[2021-08-12] MEDS: Omnipaque 300 MG/ML 10 ML BTL IJ (15:49)
[2021-08-12] MEDS: Bupivacaine 0.5% Pres-Free 30 ML VIAL 5 ML IJ (15:50)
[2021-08-12] MEDS: methylPREDNISolone ACETATE 80 MG/ML VIAL IM (15:51)
--- NOTE | 2021-08-12 19:04 | OPPNE_ITS ---
Date of service: 08/12/21 Time of Service: 15:30 Procedure Note Date of procedure: 08/12/21 Procedure: Left Shoulder Injection Surgeon/Proceduralist/Physician: Carlos Cancino Procedure Diagnosis: Left Bicipital Tendinitis, Labral Tear, Partial Rotator Cuff Tear Procedure Indications: Genna has had persistent pain of the LEFT shoulder. Noninvasive measures have been tried. To serve as both diagnostic and therapeutic, an injection under fluoroscopy was recommended. I had discussed the risks of the procedure and the patient elected to proceed. Procedure Description: Genna was greeted in the flouroscopy room. The correct side was identified and the consent was reviewed with the patient and signed. The patient was then pl aced in the supine position on the fluoroscopy table. The LEFT shoulder was then prepped with Chloraprep. The anterior injection starting point was identiifed by bony landmarks and fluoroscopy. The skin and soft tissue in the tract of the injection was anesthetized with 1% Lidocaine. A spinal needle was then inserted deep into the shoulder joint at the level of the recess between the glenoid and superior humeral head. A small amount of Omnipaque solution was injected to confirm intraarticular placement. Once confirmed, the shoulder was injected with 4cc of 0.5% Bupivicaine and 80mg of Depo-Medrol. A bandaid was placed on the injection site. The patient tolerated the procedure well and noted improvement in pre-injection pain.
== END ==
PROVIDERS: PCP Family Medicine; Visit Provider Student in an Organized Health Care Education/Training Program
DX: M25.512 Pain in left shoulder (principal); M75.22 Bicipital tendinitis, left shoulder; M75.82 Other shoulder lesions, left shoulder
CPT/HCPCS: 20610; 77002; J1040

== ENCOUNTER 2021-08-17 15:21 | Emergency (ER) | payer MEDICARE, OTHER, SELFPAY ==
[2021-08-17 15:28] VITALS: BP 143/76; PULSE 83; RESP 16; TEMP 36; O2SAT 99
--- NOTE | 2021-08-17 16:24 | W.ED.GENAD ---
Discharge Plan Disposition Patient Disposition: HOME Condition: Stable Discharge Details Clinical Impression: Laceration Primary Care Provider: Lindsey Herndon ED Provider: Amara Cox Home Meds and New Rx's Prescriptions: Continued tamsulosin 0.4 mg capsule 0.4 mg PO QHS Qty: 90 5RF Rx Instructions: try 1 tab for 2 weeks. If you continue to have difficulties, go to 2 tabs daily acetaminophen [Mapap Extra Strength] 500 MG tablet 1,000 mg PO Q8H PRNQty: 90 0RF Discharge Instructions Instructions: Laceration (ED) Additional Instructions: Keep wound clean and dry Refrain from flexing and bending Take the splint on for the next 7 days Suture removal in 12 days S-glue or skin adhesive on your other wounds, this will dissolve on own Return earlier should you have spreading redness, fever, worsening pain May take Tylenol as needed for pain Referrals: Lindsey Herndon MD, [place] [Primary Care Provider] - Discharge Data Discharge Date/Time-TO BE ENTERED AT DEPARTURE: 08/17/21 16:35 Medical Decision Making Patient tolerated procedure without incident Sutures will need to be removed in 12 days Irrigated copiously No evidence of tendon or ligament involvement Neurovascularly intact No indication for antibiotic, no obvious foreign body Return precautions discussed and patient expressed understanding HPI General Date/Time Provider Initiated Documentation: 08/17/21 15:37. HPI Narrative: This 70-year-old gentleman presents with laceration to left hand while using a tavo. This occurred approximately 3 hours prior to arrival. His tetanus is reportedly up-to-date. He denies any strength or sensation change. Denies any difficulties with flexion and extension. Related Data Home Medications Medication Instructions Recorded Confirmed acetaminophen 500 mg tablet (Mapap 1,000 mg PO Q8H PRN #90 tabs 04/30/19 08/17/21 Extra Strength) tamsulosin 0.4 mg capsule 0.4 mg PO QHS #90 caps 08/06/20 08/17/21 Previous Rx's Medication Instructions Recorded acetaminophen 500 mg tablet (Mapap 1,000 mg PO Q8H PRN #90 tabs 04/30/19 Extra Strength) tamsulosin 0.4 mg capsule 0.4 mg PO QHS #90 caps 08/06/20 Allergies Allergy/AdvReac Type Severity Reaction Status Date / Time No Known Allergies Allergy Verified 08/17/21 15:31 General Stated Complaint: Laceration TRAVIS: 4 Review of Systems Narrative: Review of systems obtained x3 and negative aside from indication [facility] All Active Problems Laceration (Acute) Tendinitis of left rotator cuff (Acute) Bicipital tendonitis of left shoulder (Acute) Left anterior shoulder pain (Acute) Cervical pain (neck) (Acute) Actinic keratosis (Acute) Carpal tunnel syndrome on both sides (Acute) Chronic left hip pain (Acute) Calcific tendonitis of left shoulder (Acute) Injected: 04/14/2020 Asymmetric prostate (Acute 05/13/15) Low back pain, non-specific (Acute) rotoscoliotic deformities Posterior vitreous detachment of right eye (Acute 06/05/17) [facility] Right rotator cuff tendinitis (Acute) Injected: 04/14/2020; 09/14/2018 Diverticulosis (Acute) Biceps tendinitis of right shoulder (Acute) Duodenal ulcer (Acute) Cervical pain (Acute) Cubital tunnel syndrome on left (Acute) Carpal tunnel syndrome on both sides (Acute) Right > Left Asymptomatic (Acute) Skin lesion (Acute) Shoulder pain (Acute) Elbow pain (Acute) Arthrofibrosis of total knee arthroplasty (Acute) B/L S/P b/l knee arthroscopy with synovectomy and manipulation: 04/30/2019 History of total right knee replacement (TKR) (Acute 03/15/18) 03/15/2018 History of total left knee replacement (TKR) (Acute 04/11/17) Colorectal polyp detected on colonoscopy (Chronic ~05/15/18) adenoma S/P colonoscopy (Chronic ~05/15/18) Medical History Acute dehydration Acute GI bleeding Acute pain of both shoulders (10/26/16) Anemia Anxiety Back pain with sciatica History of right inguinal hernia Leg swelling Lipoma of abdominal wall Lumbago Melena 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) Sebaceous cyst Surgical History History of arthroscopy of knee History of arthroscopy of left knee multiple History of arthroscopy of right knee History of repair of anterior cruciate ligament of left knee Hx of inguinal hernia repair r side Family History Mother , 92 Hyperlipidemia Father , 86 Dementia Stroke COPD (chronic obstructive pulmonary disease) Sister No problems noted. Maternal Grandfather , SUICIDE at age 45. No problems noted. Paternal Grandfather Heart disease Maternal Grandmother Stroke Paternal Grandmother Neoplasm Social History Smoking/Tobacco Use Status: Never Smokeless tobacco user: chewing tobacco Quit status: considering quitting Smoking risk assessment performed?: Yes Alcohol Intake: current Alcohol Intake frequency: a few times a week Alcohol type: hard liquor Details: 5/week Drug use: Never Substance use type: does not use Details: alcohol: t-1, 1700, 2 shots Caregiver/Support person: Yes Household members: spouse Housing: house Communication Needs: Hard of Hearing Pets and animals: No Sexually active: Yes Do you think of yourself as: straight/heterosexual Current gender identity: male What is your relationship status?: How often do you talk on the phone with friends or family?: three or more times per week How often do you get together with friends or relatives?: twice per week How often do you attend holiness or sikhism services?: decline to answer Do you belong to any clubs or organized social groups?: no Panel score (0-1 are the most socially isolated patients): 2 What type of physical activity do you participate in: weight lifting Duration: 60-90 minutes/day Frequency: 3-4 times per week Drea/Baptism: No preference Special drea needs: No Do you feel safe at home: Yes Do you feel safe in your relationship?: Yes Exam Const General: cooperative and comfortable Extrem Hand/finger images: 1. 2 cm laceration 2. Abrasion 3. Abrasion Other: Brisk distal capillary refill, sensation and strength intact distally Course Vital Signs Vital signs: Vital Signs Temperature 36 C L 08/17/21 15:28 Pulse 83 08/17/21 15:28 Respiratory Rate 16 08/17/21 15:28 Blood Pressure 143/76 H 08/17/21 15:28 Pulse Oximetry 99 08/17/21 15:28 Temperature 36 C L 08/17/21 15:28 Temperature Source Temporal Artery Scan 08/17/21 15:28 Pulse 83 08/17/21 15:28 Respiratory Rate 16 08/17/21 15:28 Respiratory Effort 08/17/21 15:28 Blood Pressure 143/76 H 08/17/21 15:28 Blood Pressure Position Sitting 08/17/21 15:28 Pulse Oximetry 99 08/17/21 15:28 Oxygen Delivery Method Room Air 08/17/21 15:28 Oxygen Flow Rate 0 08/17/21 15:28 Pain Level 8 08/17/21 15:28 Procedures Laceration Laceration 1: Site: upper extremity Side (If applicable): left Size (cm): 2 Description: irregular Depth: simple, single layer Local Anesthetic: Lidocaine 1% Amount of anesthesia used (mL): 3 Pre-repair: irrigated extensively Skin layer closed with: nylon Size (cm): 4-0 Number of sutures: 5 Technique: simple, interrupted and other (vertical mattress )
== END 2021-08-17 16:35 | disposition home or self-care (01) ==
PROVIDERS: Emergency Provider Physician Assistant; PCP Family Medicine
DX: S61.211A Laceration without foreign body of left index finger without damage to nail, initial encounter (principal); W29.8XXA Contact with other powered hand tools and household machinery, initial encounter
CPT/HCPCS: 12001

== ENCOUNTER 2021-09-07 02:23 | Outpatient (CLI) | payer MEDICARE, OTHER, SELFPAY ==
[2021-09-07 23:17] LABS: PSA, Diagnostic 2.5 ng/mL (<=6.5)
== END 2021-09-07 02:24 | disposition home or self-care (01) ==
LOC: LOS 02:23
PROVIDERS: PCP Family Medicine; Visit Provider Family Medicine
DX: N40.0 Benign prostatic hyperplasia without lower urinary tract symptoms (principal)
CPT/HCPCS: 36415; 84153

== ENCOUNTER → 2021-11-25 03:07 | Outpatient (CLI) | payer MEDICARE, OTHER, SELFPAY ==
--- NOTE | 2021-11-25 16:02 | DI.RAD_ITS ---
Exam(s) RF JOINT INJECTION FLUORO GUID EXAM: RF JOINT INJECTION FLUORO GUID CLINICAL HISTORY: L SHOULDER PAIN, bicipital tendinitis, M75.22, M25.512 TECHNIQUE: Fluoroscopy provided. Radiologist not present. CONTRAST MATERIAL: None COMPARISON: No exams were available for comparison FINDINGS: Fluoroscopy was provided for Dr. Cancino during left shoulder glenohumeral joint injection. Submitted image(s) reveal Please refer to the procedure report for complete details. Cumulative Dose: Kar=0.110 mGy IMPRESSION: RADIATION DOSE DELIVERED:
[2021-11-25] MEDS: Omnipaque 300 MG/ML 10 ML BTL IJ (16:04)
[2021-11-25] MEDS: Bupivacaine 0.5% Pres-Free 10 ML VIAL 5 ML IJ (16:05)
[2021-11-25] MEDS: methylPREDNISolone ACETATE 80 MG/ML VIAL IM (16:06)
--- NOTE | 2021-11-25 19:35 | W.PROCNOTE ---
Date of service: 11/25/21 Time of Service: 15:40 Procedure Note Date of procedure: 11/25/21 Procedure: Left Shoulder Injection Surgeon/Proceduralist/Physician: Carlos Cancino Procedure Diagnosis: Left partial rotator cuff tear, biceps tendinitis Procedure Indications: Genna has had persistent pain of the LEFT shoulder. Noninvasive measures have been tried. He has had success with previous fluoroscopic injection in the past, therefore, an injection under fluoroscopy was recommended. I had discussed the risks of the procedure and the patient elected to proceed. Procedure Description: Genna was greeted in the flouroscopy room. The correct side was identified and the consent was reviewed with the patient and signed. The patient was then placed in the supine position on the fluoroscopy table. The LEFT shoulder was then prepped with Chloraprep. The anterior injection starting point was identiifed by bony landmarks and fluoroscopy. The skin and soft tissue in the tract of the injection was anesthetized with 1% Lidocaine. A spinal needle was then inserted deep into the shoulder joint at the level of the recess between the glenoid and superior humeral head. A small amount of Omnipaque solution was injected to confirm intraarticular placement. Once confirmed, the shoulder was injected with 5cc of 0.5% Bupivicaine and 80mg of Depo-Medrol. A bandaid was placed on the injection site. The patient tolerated the procedure well and noted improvement in pre-injection pain.
== END ==
PROVIDERS: PCP Family Medicine; Visit Provider Student in an Organized Health Care Education/Training Program
DX: M25.512 Pain in left shoulder (principal); M75.22 Bicipital tendinitis, left shoulder
CPT/HCPCS: 20610; 77002; J1040

== ENCOUNTER 2022-01-10 10:57 | Outpatient (CLI) | payer MEDICARE, OTHER, SELFPAY ==
--- NOTE | 2022-01-10 10:15 | DI.RAD_ITS ---
Exam(s) XR SHOULDER RT COMPLETE 2+V EXAM: XR SHOULDER RT COMPLETE 2+V CLINICAL HISTORY: right shoulder pain. TECHNIQUE: 2D digital imaging was performed of the right shoulder. Three images were obtained. AP, Grashey, Y-view and axillary views were obtained. COMPARISON: CR XR shoulder RT complete 2+V from 09/14/2018 FINDINGS: BONES: No acute fracture is present. No bony destructive lesion is seen. JOINTS: No dislocation present. Moderate degenerative changes are seen at the acromioclavicular joint . The glenohumeral joint is well maintained. SOFT TISSUE: There calcifications adjacent to the greater tuberosity consistent with calcific tendini tis. IMPRESSION: Degenerative changes of the right shoulder as described. DATA REPOSITORY: RADIATION DOSE DELIVERED:
== END 2022-01-10 10:58 | disposition home or self-care (01) ==
LOC: DIORS 10:58
PROVIDERS: PCP Family Medicine; Referring Provider Family Medicine; Visit Provider Physician Assistant
DX: M75.81 Other shoulder lesions, right shoulder (principal); M75.22 Bicipital tendinitis, left shoulder; M75.82 Other shoulder lesions, left shoulder; M75.31 Calcific tendinitis of right shoulder
CPT/HCPCS: 99213; 73030

== ENCOUNTER → 2022-03-10 12:55 | Outpatient (BNVA) | payer MEDICARE, OTHER, SELFPAY | PROVIDERS: PCP Family Medicine; Referring Provider Family Medicine; Visit Provider Physician Assistant | DX: Z01.818 Encounter for other preprocedural examination (principal); M67.912 Unspecified disorder of synovium and tendon, left shoulder; M75.82 Other shoulder lesions, left shoulder; M75.22 Bicipital tendinitis, left shoulder ==

== ENCOUNTER 2022-03-23 07:29 | Day surgery (SDC) | payer MEDICARE, OTHER, SELFPAY ==
[2022-03-23] VITALS (11 sets, daily range): BP systolic 124–152; BP diastolic 58–85; PULSE 38–52; RESP 11–16; TEMP 35.9–36.3; O2SAT 95–99; BMI 24.0
[2022-03-23] MEDS: Lactated Ringers 1,000 ML 80 ML IV (08:11)
--- NOTE | 2022-03-23 08:30 | W.ANESPRE ---
General Info Date of Service Date Performed: 03/23/22 Height: 5 ft 7 in Weight: 69.5 kg Body Mass Index (BMI): 24.0 Surgical Procedure: Operation Date: 03/23/22 10:25 Proposed Procedure Side Surgeon p Shoulder Rotator Cuff Arthroscopic, Biceps Tenodesis Left Carlos Cancino MD Meds Allergies and Home Medications Allergies Allergy/AdvReac Type Severity Reaction Status Date / Time No Known Allergies Allergy Verified 03/23/22 07:42 Home Medication Medication Instructions Recorded acetaminophen 500 mg tablet (Mapap 1,000 mg PO Q8H PRN #90 tabs 04/30/19 Extra Strength) tamsulosin 0.4 mg capsule 0.4 mg PO QHS #90 caps 08/31/21 metoprolol succinate 25 mg 25 mg PO DAILY #30 tabs 03/22/22 tablet,extended release 24 hr Current Visit Medications: Current Medications Generic Name Dose Route Start Last Admin Trade Name Freq PRN Reason Stop Dose Admin Ringer's Solution 1,000 mls @ 80 mls/hr 03/23/22 06:00 03/23/22 08:11 IV 04/21/22 23:59 80 mls/hr INFUSION XIANG Administration Cefazolin Sodium/Dextrose 2 gm in 50 mls @ 100 mls/hr 03/23/22 06:00 Ancef Duplex IVPB 04/21/22 23:59 PREOP XIANG IV Miscellaneous Supplies 1 each 03/23/22 06:00 Iv Access IV 04/21/22 23:59 DIRECTED XIANG Sodium Chloride 0 ml 03/23/22 06:00 Normal Saline Flush 10 Ml Syr IV 04/21/22 23:59 PRN PRN Sodium Chloride 0 ml 03/23/22 06:00 Normal Saline 10 Ml Vial IJ 04/21/22 23:59 DIRECTED PRN Sterile Water 0 ml 03/23/22 06:00 Water,Injection,Sterile 10 Ml Vial IJ 04/21/22 23:59 DIRECTED PRN PFSH Active Problems Active Problems: Problem Status Onset Code Low back pain, non-specific M54.5 Posterior vitreous detachment of right eye 06/05/17 H43.811 Right rotator cuff tendinitis M75.81 Biceps tendinitis of right shoulder M75.21 Cervical pain M54.2 Cubital tunnel syndrome on left G56.22 Carpal tunnel syndrome on both sides G56.03 Calcific tendonitis of left shoulder M75.32 Chronic left hip pain M25.552, G89.29 Carpal tunnel syndrome on both sides G56.03 Left anterior shoulder pain M25.512 Bicipital tendonitis of left shoulder M75.22 Tendinitis of left rotator cuff M75.82 Calcific tendonitis of right shoulder M75.31 Disorder of left rotator cuff M67.912 Medical History Medical History (Updated 03/23/22 @ 07:41 by Isael Boland) Acute dehydration Acute GI bleeding Acute pain of both shoulders (10/26/16) Anemia Anxiety Back pain with sciatica Colorectal polyp detected on colonoscopy (~05/15/18) adenoma Diverticulosis Duodenal ulcer Enlarged prostate History of right inguinal hernia HTN (hypertension) Leg swelling Lipoma of abdominal wall Lumbago Melena Patellar clunk syndrome of right knee 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) Sebaceous cyst Surgical History Surgical History Arthrofibrosis of total knee arthroplasty B/L S/P b/l knee arthroscopy with synovectomy and manipulation: 04/30/2019 History of arthroscopy of knee History of arthroscopy of left knee multiple History of arthroscopy of right knee History of repair of anterior cruciate ligament of left knee History of total left knee replacement (TKR) (04/11/17) History of total right knee replacement (TKR) (03/15/18) 03/15/2018 Hx of inguinal hernia repair r side S/P colonoscopy (~05/15/18) Tobacco Smoking/Tobacco Use Status: Never Smokeless tobacco user: chewing tobacco Alcohol Alcohol Intake: current Alcohol intake frequency: a few times a week Alcohol type: hard liquor Details: 5/week Substance Use Substance use: Never Substance use type: does not use Details: alcohol: t-1, 1700, 2 shots Vital Signs and Lab Results Vital Signs Most Recent Vital Signs in EMR: Most Recent Vital Signs Temp Pulse Resp BP Pulse Ox 36.0 C L 52 L 16 145/77 H 99 03/23/22 07:45 03/23/22 07:45 03/23/22 07:45 03/23/22 07:45 03/23/22 07:45 Lab Results Blood Type / Crossmatch: No Data to Display Complete Blood Count: No Data to Display Complete Metabolic Panel: No Data to Display Liver Function Panel: No Data to Display Coagulation Panel: No Data to Display Cardiac Panel: No Data to Display Arterial Blood Gas: No Data to Display Venous Blood Gas: No Data to Display Pancreas Panel: No Data to Display Thyroid Panel: No Data to Display Infectious Disease: No Data to Display Blood Cultures: No Data to Display Toxicology Panel: No Data to Display Anesthesia Assessment and Plan Anesthesia History Personal History: No History of Anesthesia Complications Family History: No Family History of Anesthesia Complications Exercise Tolerance Exercise Tolerance: Metabolic Equivalents>4 Pertinent Negatives Pertinent Negatives: No Symptoms of GERD, No Major Cardiovascular Symptoms or Complaints and No Major Pulmonary Symptoms or Complaints Cardiac & Pulmonary Exam Cardiac Exam: Normal S1/S2 Heart Sounds Pulmonary Exam: Clear Bilateral Breath Sounds Implantable Cardiac Device Does patient have a Pacemaker or an ICD?: No Airway Exam Known Difficult Airway: No Mallampati Class: 2 Mouth Opening: Normal (> 3cm) Thyromental Distance: Greater than 3 cm Neck Range of Motion: Full ROM Neck Circumference: Normal Teeth Condition: Normal Dentition ASA Classification ASA Score: ASA 2 Emergency Case?: No NPO Status NPO Status: NPO Clears >2 hours, Solids >8 hours Anesthesia Plan Resuscitation Status: Full Code Anesthesia Technique: General Anesthesia Airway Planned: Endotracheal Tube Pain Management: Surgeon and patient request nerve block Monitors Used: Standard Monitors
--- NOTE | 2022-03-23 09:31 | W.ANESNERVE ---
Nerve Block Single Injection Procedure Date and Time Date Performed: 03/23/22 Procedure Start: 09:09 Location Where Procedure Performed Procedure Location: Day Surgery Unit Reason Performed: Postoperative Analgesia Requesting Provider: Carlos Cancino Timeout Performed Timeout Performed: Yes Monitoring Used ECG, Blood Pressure, SpO2 and See EMR for corresponding vital signs Sterility Sterility: Hand Hygiene, Surgical Cap, Surgical Mask, Sterile Gloves and Chlorhexidine Sedation Given During Procedure Sedation Given (Indicate Dose Given): Versed IV Dose:: 2mg Patient Mental Status Patient Mental Status: Awake Nerve Block 1st Nerve Block: Laterality: Left Block Type: Interscalene Needle / Catheter Used: 100mm SonoPlex II Local Anesthetic Bolus (Indicate Dose Given): Lidocaine used for local infiltration of skin, Injected in 3-5ml increments after negative blood aspiration, Bupivacaine 0.5% Dose:: 10ml and Exparel Dose:: 10ml Additives (Indicate Dose Given): None Ultrasound: Sterile probe cover and gel used Ultrasound Image Saved?: Yes Nerve Stimulator: Not Used Paresthesia: None Procedure Tolerated: No Complications and Patient tolerated well Procedure Outcome: Successful Performed By: Nick Rodgers
[2022-03-23] MEDS: EPINEPHrine 30 MG/30 ML VIAL (09:56)
[2022-03-23] MEDS: ceFAZolin 2 GM/50 ML BAG IVPB (10:14)
--- NOTE | 2022-03-23 10:45 | PDOC.DSDIS_ITS ---
Date of service: 03/23/22 Time of Service: 10:45 Discharge Plan Disposition Patient Disposition: Home Condition: Good Discharge Details Reason For Visit: L Shoulder RTC Repair Attending Provider: Carlos Cancino Primary Care Provider: Lindsey Herndon Home Meds and New Rx's Prescriptions: New acetaminophen 500 mg tablet 1,000 mg PO TID Qty: 90 3RF ibuprofen 600 mg tablet 600 mg PO TID PRNQty: 90 3RF oxycodone 5 mg tablet 5 mg PO Q4H MDD 6 tabs PRN (Reason: pain) Qty: 20 0RF Continued metoprolol succinate 25 mg tablet extended release 24 hr 25 mg PO DAILY Qty: 30 5RF tamsulosin 0.4 mg capsule 0.4 mg PO QHS Qty: 90 5RF Rx Instructions: try 1 tab for 2 weeks. If you continue to have difficulties, go to 2 tabs daily Discontinued acetaminophen [Mapap Extra Strength] 500 MG tablet 1,000 mg PO Q8H PRNQty: 90 0RF Discharge Instructions Stand Alone Forms: Barak laura/RCR, Barak laura/BT Referrals: Carlos Cancino MD [ [facility] STAFF PHYSICIAN] - Equipment/Supplies: Sling Activity:: Elevate Remove Dressings/Wound Care:: 72 hours Shower/Bathe:: 72 hours Diet:: As Tolerated Discharge Orders Discharge Orders: Discharge Order (Routine); Ordered 03/23/22 Ordered By: Tevin Patel
[2022-03-23] MEDS: Bupivacaine 0.5% Pres-Free 30 ML VIAL (10:58)
--- NOTE | 2022-03-23 14:34 | W.ANESPOSTOP ---
Postoperative Evaluation Date, Time and Location Date Performed: 03/23/22 Time Performed: 14:34 Patient Location: Day Surgery Unit Vital Signs Most Recent Imported Vital Signs: Most Recent Vital Signs Temp Pulse Resp BP Pulse Ox 35.9 C L 49 L 16 144/80 H 97 03/23/22 13:42 03/23/22 13:42 03/23/22 13:42 03/23/22 13:42 03/23/22 13:42 Pain Score Most Recent Pain Score: Most Recent Pain Score Pain Level 0 03/23/22 13:42 Assessment Mental Status: Awake (Alert & Oriented to Patient Baseline) Airway and Respiratory Function: Patent airway with normal (patient baseline) respiratory exam Cardiovascular Function: Hemodynamically Stable Hydration Status: Adequately Hydrated Nausea & Vomiting: No Nausea or Vomiting Pain: Pt. Denies Any Pain Peripheral Nerve Block: Regional nerve block not resolved at time of post operative discharge
--- NOTE | 2022-03-23 16:43 | W.PM.OP ---
Date of service: 03/23/22 Time of Service: 12:30 Operative Note Operative Note DATE OF PROCEDURE: 03/23/22 PRE-OP DIAGNOSIS: Left rotator cuff tear, left biceps tendinitis POST-OP DIAGNOSIS: other (High-grade partial rotator cuff tear of the supraspinatus, SLAP tear -left shoulder) PROCEDURE: Left shoulder arthroscopic rotator cuff repair and open subpectoral biceps tenodesis SURGEON: Carlos Cancino FINANCIAL PROCESSING CLERK: Tevin Patel Refer to Anesthesia Record ESTIMATED BLOOD LOSS: 0 PATHOLOGY: none sent COMPLICATIONS: None Patient was transported to: PACU Patient's condition: stable Indications: I have seen Genna in clinic for a painful shoulder. Pathology was confirmed based on MRI and exam findings. Nonoperative measures were exhausted but disability and pain persisted. I discussed shoulder arthroscopy and procedures. I reviewed the risks of the procedures to include, but not limited to, bleeding, infection, pain, stiffness, damage to nerves or vessels, recurrence, hardware failure, blood clot. Despite these risks, the patient elected to proceed. Findings: A diagnostic arthroscopy was performed with the following findings: Articular Side - Glenohumeral Joint: Grade I chondromalacia throughout with some areas centrally of Grade II - Labrum: Fraying and separation of the superior labrum from the superior glenoid, involving the anchor - Cuff: High grade partial tearing of 6-8mm width of the supraspinatus - Biceps: Intact Subacromial Side - Bursal: Bursal sided fraying with degneration of tendon tissue, probe easily penetrate cuff, dense anterior bursal tissue - Rotator Cuff: partial tearing of supraspinatus - No significant spurring Procedure Description: Genna was greeted in the preoperative holding area where the correct side was identified and marked. The consent was reviewed with the patient and signed. The history and physical was updated. All questions were answered. Genna was administered an intrascalene nerve block. Genna was then taken to the operating room. The patient was placed into the supine position on the operating room table. A general anesthetic was administered. Genna was then positioned in the beach chair position. All bony prominences were well padded. The head was placed in a foam head of precision targeting in a neutral position. Prophylactic antibiotics in the form of Cefazolin were administered. The LEFT arm/shoulder was then prepped with Chloraprep and draped in a standard fashion with stockinette and shoulder drape. A timeout to confirm correct identity, side and site, procedure, allergies, anesthesia, and medical concerns was performed. The arm was placed into a pneumatic mora, SPIDER2. The shoulder arthroscopy was then performed. The glenohumeral joint was injected with 20 cc of normal saline with good flow back. A standard posterior portal was made and the joint was entered atraumatically with a blunt arthroscope. Once inside we had good visualization of the structures of the glenohumeral joint. An anterior portal was established with spinal needle localization. A 6.5 mm cannula was inserted. A probe was then used to perform a diagnostic arthroscopy. There is noted to be some cartilage thinning of the glenoid and humeral head, globally Grade I with some areas centrally of Grade II. The labrum was torn from the superior glenoid, involving the labrum. There were no loose bodies in the inferior pouch. The superior rotator cuff was torn with some bursal fibers intact. The biceps tendon was without tearing. The subscapularis was intact. Given that the labrum was torn the biceps was released using electrocautery. Any fraying of the labrum was debrided with a shaver and the superior glenoid was debrided with a shaver to roughen the bone area for labral healing. The subscapularis tendon was reinspected on multiple positions and showed to be intact without tearing. The supraspinatus tendon had significant frayed tissue on the articular side. This was debrided down for better visualization. The footprint was evaluated. The tendon quality which was remnant was quite poor with notable yellow degeneration. This unhealthy tissue was debrided. The foot Corail was not and it showed to be at least 6 mm and is sometimes 8 to 9 mm in width exposed. This meant that more than half the footprint was exposed. Using a spinal needle and PDS suture I marked this area for later investigation within the bursal space. Any other frayed tissue was then removed with a shaver. Attention was then turned to the biceps tenodesis. The biceps tenodesis was then performed. With the arm and some slight external rotation abduction pectoralis major tendon was identified. A 2 cm incision was made overlying the insertion to the humerus. Sharp dissection was carried onto the skin. Blunt dissection was carried down to the fascia the biceps musculature. This was entered with a tenotomy scissors. The biceps groove was palpable and the biceps tendon was palpable. It was withdrawn from the wound using Allis clamp and finger dissection. Once the biceps tendon was out of the arm the biceps groove was prepared using a rasp. A Mitek Lupine anchor was inserted into the biceps groove at the level of the pectoralis major insertion. This was tested to make sure had excellent fixation into the bone. Using a free needle I then placed a locking Krak?w stitch and each side of the biceps tendon using one limb from each suture at the level of the muscular tendinous junction and moving proximally. Excess tendon was then cut. Using the free suture limb I then shuttled the tendon down to the prepared surface of the humerus. It laid flat against the humerus. It was at the level of the pectoralis major tendon. The suture limbs were then tied. The wound was irrigated. The subcutaneous tissue was reapproximated with a 2-0 Vicryl. The arthroscope was then inserted into the subacromial space. The 6.5 mm cannula was placed lateral to the CA ligament. I then placed 2 additional lateral cannulas using spinal needle localization. A complete bursectomy is performed anteriorly, posteriorly, and laterally with electrocautery and shaver. This had excellent exposure of the rotator cuff. The bursal side rotator cuff was frayed although there is no complete tearing seen in this region. The area which was previously marked was further inspected. The probe was easily able to penetrate this tendinous tissue although there is no emanuel tear in this region. The tissue in this area was quite degenerative. Use a shaver to debride the unhealthy appearing tissue. Once again, there is some degenerative tissue seen adjacent to the tuberosity. Once again, and with probing the probe would sink into the tissue. Therefore at this point I decided to proceed with a rotator cuff repair. Given the size of the tear I proceeded to elevate off the attached bursal tissues from the tuberosity. This completed the tear into a crescent style full-thickness tear. The tuberosity was previously debrided from inside the joint space. I then continue to debridement from the bursal side making sure that the tuberosity surface was well decorticated. The tendon edge was debrided of some is emanuel. I then placed 2 4.5 mm Healix Abena tape suture anchors. One was placed anteriorly, one was placed more posteriorly, both adjacent to the medial articular margin. These were placed without difficulty. Then using a passing suture the sutures were brought through the rotator cuff and the anterior and posterior aspects of supraspinatus. The medial row was then secured using the Abena cord suture. 1 limb from anterior and 1 limb from posterior was brought out side the lateral cannula and tied. This was then pulled down to secure the medial row. This construct was then completed by the placement of knotless anchors in the lateral row. 1 limb of the Abena cord and 1 limb of the tape from the anterior anchor with 1 limb of the tape from the posterior anchor were then brought out of the lateral side of the shoulder and placed into a knotless anchor anteriorly with tuberosity. This was placed with excellent fixation this was repeated for the posterior anchor. This created a bridging construct with excellent reapproximation of the tendon to the bone. There is no notable dogear. The suture limbs were cut. There was no significant spurring. The scope equipment was removed from the shoulder. Excess fluid was evacuated. The portal sites were closed with 3-0 Monocryl. The wounds were dressed with Steri-Strips, 4 x 4's, ABDs, Medipore tape. A sling was applied. The patient tolerated the procedure well and was returned to the PACU in a stable condition suffering no known complication.
== END 2022-03-23 15:04 | disposition home or self-care (01) ==
PROVIDERS: PCP Family Medicine; Visit Provider Student in an Organized Health Care Education/Training Program
PROC: (CPT 29827; principal; 2022-03-23 10:15)
DX: M75.112 Incomplete rotator cuff tear or rupture of left shoulder, not specified as traumatic (principal); M94.212 Chondromalacia, left shoulder; M75.22 Bicipital tendinitis, left shoulder; M24.112 Other articular cartilage disorders, left shoulder
CPT/HCPCS: 29827; 23430; 76942; J0690; J1100; J1885; J2250; J2405; J2704

== ENCOUNTER → 2022-04-04 10:12 | Outpatient (BNVA) | payer MEDICARE, OTHER, SELFPAY | PROVIDERS: PCP Family Medicine; Referring Provider Family Medicine; Visit Provider Student in an Organized Health Care Education/Training Program | DX: Z47.89 Encounter for other orthopedic aftercare (principal); M75.112 Incomplete rotator cuff tear or rupture of left shoulder, not specified as traumatic ==

== ENCOUNTER 2022-05-02 11:36 | Outpatient (CLI) | payer MEDICARE, OTHER, SELFPAY ==
--- NOTE | 2022-05-02 11:30 | DI.RAD_ITS ---
Exam(s) XR SHOULDER LT COMPLETE 2+V EXAM: XR SHOULDER LT COMPLETE 2+V CLINICAL HISTORY: eval L shoulder pain/weakness after RTC surg. TECHNIQUE: 2D digital imaging was performed of the left shoulder. Four images were obtained. AP an d Y views were obtained. COMPARISON: CR XR SHOULDER LT COMPLETE 2+V from 06/10/2021 FINDINGS: BONES: No acute fracture is present. No bony destructive lesion is seen. JOINTS: No dislocation present. There are degenerative changes seen at both the acromioclavicular and glenohumeral joints. SOFT TISSUE: Calcifications are again seen in the soft tissues adjacent to the greater tuberosity con sistent with calcific tendinitis. IMPRESSION: Stable degenerative changes of the left shoulder. No acute abnormality. DATA REPOSITORY: RADIATION DOSE DELIVERED:
== END 2022-05-02 11:37 | disposition home or self-care (01) ==
LOC: DIORS 11:36
PROVIDERS: PCP Family Medicine; Referring Provider Family Medicine; Visit Provider Student in an Organized Health Care Education/Training Program
DX: Z47.89 Encounter for other orthopedic aftercare (principal); G56.22 Lesion of ulnar nerve, left upper limb; G56.03 Carpal tunnel syndrome, bilateral upper limbs
CPT/HCPCS: 73030

== ENCOUNTER 2022-05-18 10:52 | Day surgery (SDC) | payer MEDICARE, OTHER, SELFPAY ==
[2022-05-18 11:12] VITALS: BP 154/86; PULSE 60; RESP 16; TEMP 36.1; O2SAT 98
[2022-05-18] MEDS: Lactated Ringers 1,000 ML 80 ML IV (11:36)
--- NOTE | 2022-05-18 12:09 | W.ANESPRE ---
General Info Date of Service Date Performed: 05/18/22 Height: 5 ft 7 in Weight: 70.2 kg Body Mass Index (BMI): 24.2 Surgical Procedure: Operation Date: 05/18/22 13:25 Proposed Procedure Side Surgeon p Wrist ECTR Left Carlos Cancino MD s Cubital Tunnel Release Left Carlos Cancino MD Meds Allergies and Home Medications Allergies Allergy/AdvReac Type Severity Reaction Status Date / Time No Known Allergies Allergy Verified 05/17/22 11:08 Home Medication Medication Instructions Recorded tamsulosin 0.4 mg capsule 0.4 mg PO QHS #90 caps 08/31/21 metoprolol succinate 25 mg 25 mg PO DAILY #30 tabs 03/22/22 tablet,extended release 24 hr acetaminophen 500 mg tablet 1,000 mg PO TID #90 tabs 03/23/22 Current Visit Medications: Current Medications Generic Name Dose Route Start Last Admin Trade Name Freq PRN Reason Stop Dose Admin Ringer's Solution 1,000 mls @ 80 mls/hr 05/18/22 06:00 05/18/22 11:36 IV 06/17/22 23:59 80 mls/hr INFUSION XIANG Administration Cefazolin Sodium/Dextrose 2 gm in 50 mls @ 100 mls/hr 05/18/22 06:00 Ancef Duplex IVPB 06/17/22 23:59 PREOP XIANG IV Miscellaneous Supplies 1 each 05/18/22 06:00 Iv Access IV 06/17/22 23:59 DIRECTED XIANG Sodium Chloride 0 ml 05/18/22 06:00 Normal Saline Flush 10 Ml Syr IV 06/17/22 23:59 PRN PRN Sodium Chloride 0 ml 05/18/22 06:00 Normal Saline 10 Ml Vial IJ 06/17/22 23:59 DIRECTED PRN Sterile Water 0 ml 05/18/22 06:00 Water,Injection,Sterile 10 Ml Vial IJ 06/17/22 23:59 DIRECTED PRN PFSH Active Problems Active Problems: Problem Status Onset Code History of arthroscopy of left shoulder 03/23/22 Z98.890 Low back pain, non-specific M54.5 Posterior vitreous detachment of right eye 06/05/17 H43.811 Right rotator cuff tendinitis M75.81 Biceps tendinitis of right shoulder M75.21 Cervical pain M54.2 Cubital tunnel syndrome on left G56.22 Carpal tunnel syndrome on both sides G56.03 Calcific tendonitis of left shoulder M75.32 Chronic left hip pain M25.552, G89.29 Carpal tunnel syndrome on both sides G56.03 Left anterior shoulder pain M25.512 Bicipital tendonitis of left shoulder M75.22 Tendinitis of left rotator cuff M75.82 Calcific tendonitis of right shoulder M75.31 Disorder of left rotator cuff M67.912 Medical History Medical History Acute dehydration Acute GI bleeding Acute pain of both shoulders (10/26/16) Anemia Anxiety Back pain with sciatica Colorectal polyp detected on colonoscopy (~05/15/18) adenoma Diverticulosis Duodenal ulcer Enlarged prostate History of right inguinal hernia HTN (hypertension) Leg swelling Lipoma of abdominal wall Lumbago Melena Patellar clunk syndrome of right knee 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 pt has a bandaid on abdnomen to cover oozing recurrent cyst. Cyst originally removed 2-3 Surgical History Surgical History Arthrofibrosis of total knee arthroplasty B/L S/P b/l knee arthroscopy with synovectomy and manipulation: 04/30/2019 History of arthroscopy of knee History of arthroscopy of left knee multiple History of arthroscopy of right knee History of repair of anterior cruciate ligament of left knee History of total left knee replacement (TKR) (04/11/17) History of total right knee replacement (TKR) (03/15/18) 03/15/2018 Hx of inguinal hernia repair r side S/P colonoscopy (~05/15/18) Tobacco Smoking/Tobacco Use Status: Former Tobacco Use Smokeless tobacco user: chewing tobacco Alcohol Alcohol Intake: current Alcohol intake frequency: 0-2 drinks per day Alcohol type: hard liquor Details: 5/week Substance Use Substance use: Never Substance use type: does not use Details: 05/18/22 - Pt had one drink 05/17/22 Vital Signs and Lab Results Vital Signs Most Recent Vital Signs in EMR: Most Recent Vital Signs Temp Pulse Resp BP Pulse Ox 36.1 C L 60 16 154/86 H 98 05/18/22 11:12 05/18/22 11:12 05/18/22 11:12 05/18/22 11:12 05/18/22 11:12 Lab Results Blood Type / Crossmatch: No Data to Display Complete Blood Count: No Data to Display Complete Metabolic Panel: No Data to Display Liver Function Panel: No Data to Display Coagulation Panel: No Data to Display Cardiac Panel: No Data to Display Arterial Blood Gas: No Data to Display Venous Blood Gas: No Data to Display Pancreas Panel: No Data to Display Thyroid Panel: No Data to Display Infectious Disease: No Data to Display Blood Cultures: No Data to Display Toxicology Panel: No Data to Display Anesthesia Assessment and Plan Anesthesia History Personal History: No History of Anesthesia Complications Family History: No Family History of Anesthesia Complications Exercise Tolerance Exercise Tolerance: Metabolic Equivalents>4 Pertinent Negatives Pertinent Negatives: No Symptoms of GERD, No Major Cardiovascular Symptoms or Complaints and No Major Pulmonary Symptoms or Complaints Cardiac & Pulmonary Exam Cardiac Exam: Normal S1/S2 Heart Sounds Pulmonary Exam: Clear Bilateral Breath Sounds Implantable Cardiac Device Does patient have a Pacemaker or an ICD?: No Airway Exam Known Difficult Airway: No Mallampati Class: 2 Mouth Opening: Normal (> 3cm) Thyromental Distance: Greater than 3 cm Neck Range of Motion: Full ROM Neck Circumference: Normal Teeth Condition: Normal Dentition ASA Classification ASA Score: ASA 2 Emergency Case?: No NPO Status NPO Status: NPO Clears >2 hours, Solids >8 hours Anesthesia Plan Resuscitation Status: Full Code Anesthesia Technique: General Anesthesia Airway Planned: LMA Monitors Used: Standard Monitors
[2022-05-18 12:13] VITALS: BMI 24.2
--- NOTE | 2022-05-18 12:41 | PDOC.DSDIS_ITS ---
Date of service: 05/18/22 Time of Service: 12:41 Discharge Plan Disposition Patient Disposition: Home Condition: Good Discharge Details Reason For Visit: L ECTR, L cubital tunnel release Attending Provider: Carlos Cancino Primary Care Provider: Lindsey Herndon Home Meds and New Rx's Prescriptions: New hydrocodone-acetaminophen 5-325 mg tablet 1 tab PO Q6H PRN (Reason: pain) Qty: 10 0RF acetaminophen 500 mg tablet 1,000 mg PO TID Qty: 90 0RF ibuprofen 600 mg tablet 600 mg PO TID PRN (Reason: pain) Qty: 90 0RF Continued metoprolol succinate 25 mg tablet extended release 24 hr 25 mg PO DAILY Qty: 30 5RF tamsulosin 0.4 mg capsule 0.4 mg PO QHS Qty: 90 5RF Rx Instructions: try 1 tab for 2 weeks. If you continue to have difficulties, go to 2 tabs daily Discontinued acetaminophen 500 mg tablet 1,000 mg PO TID Qty: 90 3RF Discharge Instructions Additional Instructions: Cubital Tunnel Decompression Discharge Instructions Activity: You should stay in the sling for the first 2 weeks. You may come out of the sling for gentle motion and hygiene but should largely remain in the sling to allow the incision site to heal. Gentle motion of the elbow, hand, wrist, and fingers is okay and encouraged after the first few days, but no repetitive activites nor heavy lifting. You may apply ice. Medications: - You should take Tylenol and Ibuprofen around the clock. - You have been prescribed Hydrocodone for breakthrough pain. Dressings: - The initial surgical dressing should stay in place for 3 days. It may then be removed and kept clean and dry. You should cover with a light gauze dressing. - You may shower after 3 days and get the wound wet. Follow-up: 10 days Stand Alone Forms: Anesthesia Discharge Inst., Ellis Whelan ([facility]), Barak Garcia Tunnel Release Referrals: Carlos Cancino MD [ [facility] STAFF PHYSICIAN] - 05/30/22 9:45 am Equipment/Supplies: Sling Activity:: Elevate Remove Dressings/Wound Care:: 72 hours Shower/Bathe:: 72 hours Diet:: As Tolerated Discharge Orders Discharge Orders: Discharge Order (Routine); Ordered 05/18/22 Ordered By: Tevin Patel DS: Diagnosis Discharge Diagnosis (1) Carpal tunnel syndrome on both sides: Status: Acute (2) Cubital tunnel syndrome on left: Status: Acute
[2022-05-18] MEDS: ceFAZolin 2 GM/50 ML BAG IVPB (12:50)
[2022-05-18] MEDS: Bupivacaine 0.25% Pres-Free W/EPI 30 ML VIAL (13:22)
[2022-05-18 13:54] VITALS: BP 114/73; PULSE 56; RESP 16; TEMP 36.2; O2SAT 95
--- NOTE | 2022-05-18 14:06 | W.ANESPOSTOP ---
Postoperative Evaluation Date, Time and Location Date Performed: 05/18/22 Time Performed: 14:06 Patient Location: Day Surgery Unit Vital Signs Most Recent Imported Vital Signs: Most Recent Vital Signs Temp Pulse Resp BP Pulse Ox 36.2 C L 56 L 16 114/73 95 05/18/22 13:54 05/18/22 13:54 05/18/22 13:54 05/18/22 13:54 05/18/22 13:54 Pain Score Most Recent Pain Score: Most Recent Pain Score Pain Level 0 05/18/22 13:54 Assessment Mental Status: Awake (Alert & Oriented to Patient Baseline) Airway and Respiratory Function: Patent airway with normal (patient baseline) respiratory exam Cardiovascular Function: Hemodynamically Stable Hydration Status: Adequately Hydrated Nausea & Vomiting: No Nausea or Vomiting Pain: Pt. Denies Any Pain Peripheral Nerve Block: Patient did not receive a nerve block
[2022-05-18 14:23] VITALS: BP 127/73; PULSE 48; RESP 16; TEMP 36.3; O2SAT 97
--- NOTE | 2022-05-18 18:05 | ROE_ITS ---
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 Nonoperative treatment options had been trialed. Given failure of nonoperative treatments and persistent symptoms, I offered operative intervention. I reviewed the technical details of a carpal tunnel release and cubital tunnel decompression with possible anterior subcutaneous transposition. I reviewed the risk of the procedure to include bleeding, infection, pain, stiffness, nerve instability, damage to superficial nerves, persistent symptoms, and incomplete release. Despite these risks, the patient elected to proceed. Findings: The carpal tunnel was release with a standard endoscopic technique without difficulty and excellent visualization. There was a tightened cubital tunnel, most notably at Leon's ligament and into the FCU fascia. The ulnar nerve was release from the first motor branch distally through the [place] proximally. The nerve was unstable after decompression and thus an anterior subcutaneous transposition was performed. Procedure Description: Genna was greeted in the preoperative holding area where the correct side was identified and marked. The consent was reviewed with the patient and signed. The history and physical was updated. All questions were answered. He was taken back to the operating room. The patient was placed into the supine position on the operating room table with the left arm on an arm board. A nonsterile tourniquet was placed high onto the arm, into the axilla. All bony prominences were well padded. Prophylactic antibiotics in the form of Cefazolin were administered. The left arm was then prepped with Chloraprep and draped in a standard fashion with stockinette and extremity drape. A timeout to confirm correct identity, side and site, procedure, allergies, anesthesia, and medical concerns was performed. The surgical site was marked in the volar wrist creases in line with the radial border of the fourth ray. This area was anesthetized with approximately 6cc of 1% Lidocaine with Epinephrine. The surgical site about the medial elbow was drawn on the skin just posterior to the medial epicondyle borders. The planned surgical field was anesthetized with 1% Lidocaine with Epinephrine. The limb was then exsanguinated with an Esmarch. Starting with the carpal tunnel, the skin was incised with a 15 blade, appr oximately 1cm. The skin only was cut and the deeper tissue was dissected bluntly with a tenotomy scissor, avoiding passing nerve and venous structures. The fascia was penetrated and opened bluntly. A two-prong skin hook was placed under this proximal fascial edge. A series of hamate finders were used to identify and dilate the carpal tunnel. Synovial elevator was used to free synovial attachments to the underside of the transverse carpal ligament. My thumb was kept in the palm to feliz the distal extent of the carpal tunnel and correctly position the hand. The Microaire endoscope was inserted without difficulty and without resistance. Excellent visualization showed horizontally running fibers of the transverse carpal ligament (TCL). The distal extent of the TCL was visualized and the end of the scope palpated with the thumb. The blade was elevated and withdrawn from distal to proximal. The TCL was split into two flaps. The endoscope was reinserted to confirm complete release and any remnant ligament was incised. The scope was withdrawn and the proximal aspect of the carpal tunnel was grossly inspected and appeared release with the median nerve visible. The antebrachial fascia at the level of the wrist was then freed from the overlying skin and then the underlying median nerve with blunt dissection. This was transected longitudinally for about 3cm proximal to the wrist incision. The wound was then irrigated with easy flow of irrigant distally and proximally. The incision was closed with a single 4-0 Nylon suture. . Attention was then turned to the cubital tunnel release. The skin of the medial elbow was incised only with the elbow in some flexion and on a bump. The deep tissue and subcutaneous fat was dissected with a tenotomy scissors trying to protect any branches of the medial antebrachial cutaneous nerve. Any branches that were identified were retracted out of the way. The ulnar nerve was palpated and identified. A small window into the cubital tunnel, sheath overlying the nerve, was created and the nerve was able to be palpated with the [place]. A Metzenbaum scissor was then used to open up the sheath starting with Leon's ligament. I then worked distal over the ulnar nerve releasing any constraints against the nerve all the way to the fascia of the FCU muscle belly. This muscle belly was bluntly all the way down to the first motor branch of the ulnar nerve and the overlying fascia was incised. Likewise starting there at the medial epicondyle, I proceeded to work proximally to release any constraints over the ulnar nerve. This was taken all the way to the [place] of [place]. The medial intermuscular septum was also palpated and any sharp edges against the ulnar nerve were resected and released. After fully releasing the nerve it was inspected visually. I was also able to palpate the nerve fully and reach one finger up into the proximal and distal aspects to make sure there were no constraints against the nerve. A freer elevator was also used to slide easily against the ulnar nerve without any points of constriction. The arm was then taken through range of motion. The ulnar nerve did dislocate out of its groove behind the medial epicondyle. The anterior subcutaneous transposition was then performed. I dissected some space above the flexor pronator fascia. A fascial flap was elevated from distal to proximal. The nerve was moved anteriorly. All attachments adhesions to the nerve were released such that there was a smooth transition to the anterior aspect of the elbow. This fascial flap was then sewed to the deep subcutaneous tissue overlying the medial epicondyle with a 2-0 Vicryl. This was done at 2 different points and then the nerve was checked to make sure that it was resting comfortably without any points of compression. There is no compression on the nerve from the intermuscular septum or the FCU fascia at its proximal or distal aspects, respectively. The tourniquet was then deflated. Any areas of bleeding were cauterized with bipolar electrocautery. The wound was thoroughly irrigated. The deep tissue was closed with a 3-0 Vicryl. The skin was closed with a 4-0 nylon. The wounds were dressed with Xeroform, 4 x 4's, ABD, Kerlix and an Loco wrap. Genna was placed into a sling. He was transferred back to the PACU in a stable condition.
== END 2022-05-18 14:45 | disposition home or self-care (01) ==
PROVIDERS: PCP Family Medicine; Visit Provider Student in an Organized Health Care Education/Training Program
PROC: 01N54ZZ Release Median Nerve, Percutaneous Endoscopic Approach (ICD-10-PCS; CPT 29848; principal; 2022-05-18 13:15)
PROC: (CPT 64718; 2022-05-18 13:15)
DX: G56.02 Carpal tunnel syndrome, left upper limb (principal); G56.22 Lesion of ulnar nerve, left upper limb
CPT/HCPCS: 64718; 29848; J0690; J1100; J1885; J2405

== ENCOUNTER → 2022-05-30 09:44 | Outpatient (BNVA) | payer MEDICARE, OTHER, SELFPAY | PROVIDERS: PCP Family Medicine; Visit Provider Student in an Organized Health Care Education/Training Program | DX: Z47.89 Encounter for other orthopedic aftercare (principal); R20.0 Anesthesia of skin; R20.2 Paresthesia of skin; M62.838 Other muscle spasm ==

== ENCOUNTER → 2022-07-11 09:31 | Outpatient (BNVA) | payer MEDICARE, OTHER, SELFPAY | PROVIDERS: PCP Family Medicine; Referring Provider Family Medicine; Visit Provider Student in an Organized Health Care Education/Training Program | DX: Z47.89 Encounter for other orthopedic aftercare (principal); M62.512 Muscle wasting and atrophy, not elsewhere classified, left shoulder; R20.0 Anesthesia of skin ==

== ENCOUNTER → 2022-09-05 10:02 | Outpatient (BNVA) | payer MEDICARE, OTHER, SELFPAY | PROVIDERS: PCP Family Medicine; Referring Provider Family Medicine; Visit Provider Student in an Organized Health Care Education/Training Program | DX: G56.22 Lesion of ulnar nerve, left upper limb (principal); G56.03 Carpal tunnel syndrome, bilateral upper limbs; Z98.890 Other specified postprocedural states | CPT/HCPCS: 99213 ==

== ENCOUNTER → 2022-11-18 00:22 | Outpatient (CLI) | payer MEDICARE, OTHER, SELFPAY ==
--- NOTE | 2022-11-18 07:50 | DI.RAD_ITS ---
Exam(s) XR ELBOW RT COMPLETE EXAM: XR ELBOW RT COMPLETE CLINICAL HISTORY: fell on r elbow,VERY SORE,M25.521. TECHNIQUE: 2D digital imaging was performed of the left elbow. Three images were obtained. AP, lat eral and oblique views were obtained. COMPARISON: No exams were available for comparison FINDINGS: BONES: No acute fracture is present. No bony destructive lesion is seen. JOINTS: The elbow is normally aligned. There is a small joint effusion. There are mild degenerative changes seen in the elbow. Soft tissue calcifications are seen adjacent to the lateral aspect of the joint space which have the appearance of chondrocalcinosis. SOFT TISSUE: There is an enthesophyte at the insertion of the triceps tendon. IMPRESSION: 1. No definite acute fracture or dislocation. 2. There is a joint effusion present. A CT scan of the elbow should be considered for further evalua tion. MRI may also be considered if there is concern for tendon or ligament injury. DATA REPOSITORY: RADIATION DOSE DELIVERED:
== END ==
PROVIDERS: PCP Family Medicine; Visit Provider Family Medicine
DX: M25.521 Pain in right elbow (principal)
CPT/HCPCS: 73080

== ENCOUNTER → 2022-11-25 10:40 | Outpatient (BNVA) | payer MEDICARE, OTHER, SELFPAY | PROVIDERS: PCP Family Medicine; Referring Provider Family Medicine; Visit Provider Student in an Organized Health Care Education/Training Program | DX: M19.021 Primary osteoarthritis, right elbow (principal) | CPT/HCPCS: 99213 ==

== ENCOUNTER 2023-05-01 14:04 | Outpatient (CLI) | payer MEDICARE, OTHER, SELFPAY ==
--- NOTE | 2023-05-01 09:15 | DI.RAD_ITS ---
Exam(s) XR WRIST RT COMPLETE EXAM: XR WRIST RT COMPLETE CLINICAL HISTORY: R wrist pain. TECHNIQUE: 2D digital imaging was performed. Three views. COMPARISON: No exams were available for comparison FINDINGS: BONES: No acute fracture is present. Old ulnar styloid fracture. Mild positive ulnar variance. No bony destructive lesion is seen. JOINTS: The carpal bones are normally aligned. Degenerative changes at radial carpal joint and 1st carpal metacarpal joint. SOFT TISSUE: Normal. IMPRESSION: Mild degenerative changes. Old radial styloid fracture. DATA REPOSITORY: RADIATION DOSE DELIVERED:
== END 2023-05-01 14:05 | disposition home or self-care (01) ==
LOC: DIORS 14:05
PROVIDERS: PCP Family Medicine; Referring Provider Family Medicine
DX: M65.4 Radial styloid tenosynovitis [de Quervain]; M18.11 Unilateral primary osteoarthritis of first carpometacarpal joint, right hand
CPT/HCPCS: 99213; 73110

== ENCOUNTER → 2023-06-12 08:45 | Outpatient (BNVA) | payer MEDICARE, OTHER, SELFPAY | PROVIDERS: PCP Family Medicine; Referring Provider Family Medicine; Visit Provider Student in an Organized Health Care Education/Training Program | DX: M65.4 Radial styloid tenosynovitis [de Quervain] (principal) | CPT/HCPCS: 20605; J1030 ==

== ENCOUNTER → 2023-09-18 19:54 | Outpatient (CLI) | payer MEDICARE, OTHER, SELFPAY ==
--- NOTE | 2023-09-18 10:02 | DI.RAD_ITS ---
Exam(s) XR RIBS LT W PA LAT CHEST EXAM: XR RIBS LT W PA LAT CHEST CLINICAL HISTORY: left anterior rib pain about rib 6, R07.81 TECHNIQUE: 2D digital imaging was performed. Six images are obtained. COMPARISON: No exams were available for comparison FINDINGS: MEDIASTINUM: Normal. HEART: Normal. PULMONARY VASCULATURE: Normal. LUNGS: There is a plate like infiltrate in the right lung base. The left lung is clear. PLEURAL SPACE: No pleural effusion or pneumothorax. BONE:Within normal limits for the patient's age. LEFT RIBS: There is a minimal displaced fracture of the lateral aspect of the left 6th rib. OTHER FINDINGS:Normal. IMPRESSION: 1. Right basilar linear infiltrate which may represent atelectasis or pneumonia. Please correlate cl inically. 2. Minimally displaced fracture of the lateral aspect of the left 6th rib. 3. No pneumothorax or pleural effusion. DATA REPOSITORY: RADIATION DOSE DELIVERED:
== END ==
PROVIDERS: PCP Family Medicine; Visit Provider Family Medicine
DX: R07.81 Pleurodynia (principal)
CPT/HCPCS: 71046; 71100

== ENCOUNTER 2023-11-08 09:00 | Outpatient (CLI) | payer MEDICARE, OTHER, SELFPAY ==
--- NOTE | 2023-11-08 08:15 | DI.RAD_ITS ---
Exam(s) XR LUMBAR SPINE COMPLETE EXAM: XR LUMBAR SPINE COMPLETE CLINICAL HISTORY: chronic back pain, with acute exacerbation,m54.5. TECHNIQUE: 2D digital imaging was performed of the lumbar spine. Five images were obtained. AP, la teral, right oblique, left oblique and L5-S1 spot views were obtained. COMPARISON: CR XR LUMBAR SPINE COMPLETE from 08/05/2020 FINDINGS: BONES: No fracture or destructive lesion. There are endplate osteophytes throughout the lumbar spine. Degenerative changes of the facets are seen at L5-S1. DISKS: There is disc space narrowing at L2-L3, L3-L4 and L4-L5. ALIGNMENT: There is a mild right convex lumbar scoliosis. No spondylolysis or spondylolisthesis. SOFT TISSUE: Normal. IMPRESSION: Moderate degenerative changes seen in the lumbar spine. DATA REPOSITORY: RADIATION DOSE DELIVERED:
== END 2023-11-08 09:20 ==
LOC: DI 09:03
PROVIDERS: PCP Family Medicine; Visit Provider Family Medicine
DX: M51.36 Other intervertebral disc degeneration, lumbar region (principal)
CPT/HCPCS: 72110

== ENCOUNTER 2023-11-23 04:49 | Outpatient (CLI) | payer MEDICARE, OTHER, SELFPAY ==
[2023-11-23 12:26] LABS: HCT 53.3 % (40.0-50.0); HGB 17.3 g/dL (13.5-17.5); MCHC 32.5 % (32.0-36.0); MCV 102 fL (80-95); MPV 10.3 fL (8.0-11.0); Platelet Count 179 10^3/uL (130-400); RBC 5.24 10^6/uL (4.36-5.78); RDW 12.6 % (11.8-14.1); RDW-SD 47.5 fL
[2023-11-23 13:05] LABS: ALT 29 U/L (16-63); AST 24 U/L (15-37); Albumin 3.8 g/dL (3.4-5.0); Alkaline Phosphatase 113 U/L (46-116); Anion Gap 7.7 mmol/L (3-11); BUN 21 mg/dL (7-18); Bilirubin, Total 1.12 mg/dL (0.2-1.0); CO2 29.3 mmol/L (21.0-32.0); Calcium 9.5 mg/dL (8.5-10.1); Calculated LDL 106 mg/dL (<100); Chloride 105 mmol/L (98-107); Cholesterol 189 mg/dL (<200); Estimated GFR 79.97 (mL/min/1.73m2); Glucose 89 mg/dL (74-106); HDL Cholesterol 73 mg/dL (40-60); Potassium 4.8 mmol/L (3.5-5.1); Sodium 142 mmol/L (136-145); Total Protein 6.9 g/dL (6.4-8.2); Triglyceride 52 mg/dL (<150)
[2023-11-24 00:10] LABS: PSA, Diagnostic 4.3 ng/mL (<=6.5)
[2023-11-24 09:30] LABS: Hepatitis C Ab w Rflx HCV PCR Negative (Negative)
== END 2023-11-23 04:50 | disposition home or self-care (01) ==
LOC: LOS 04:49
PROVIDERS: PCP Family Medicine; Visit Provider Family Medicine
DX: I10 Essential (primary) hypertension (principal); Z11.59 Encounter for screening for other viral diseases; N40.0 Benign prostatic hyperplasia without lower urinary tract symptoms; D64.9 Anemia, unspecified; Z13.6 Encounter for screening for cardiovascular disorders
CPT/HCPCS: 36415; 80053; 80061; 85027; 86803; 84153

== ENCOUNTER 2023-11-28 01:27 | Outpatient (CLI) | payer MEDICARE, OTHER, SELFPAY ==
--- NOTE | 2023-11-28 13:35 | DI.MRI_ITS ---
Exam(s) MR LUMBAR SPINE WO EXAM: MR LUMBAR SPINE WO CLINICAL HISTORY: spinal stenosis,weakness,numbness r leg,m48.061. TECHNIQUE: Multiplanar multisequence MRI of the Lumbar spine was performed. COMPARISON: MR MRI - LUMBAR SPINE WO CONTRAST from 09/23/2011 CR XR LUMBAR SPINE COMPLETE from 11/08/2023 FINDINGS: Bones: The last intervertebral disc space is designated the L5/S1 level for the numbering purpose of this examination. The vertebral body heights are well maintained. There is a mild right convex scol iosis of the lumbar spine. There are endplate degenerative signal changes present at several levels in the lumbar spine. Cord: The conus tip ends at the T12 level. It is of normal size and signal intensity. T12-L1: No disc herniations or bulges are present. No central spinal canal or neural foraminal stenos is. L1-2: No disc herniations or bulges are present. No central spinal canal or neural foraminal stenosis . L2-3: There is a mild diffuse disc bulge. No significant central spinal canal stenosis. There is mo derate left neural foraminal stenosis. No significant right neural foraminal stenosis. L3-4: There is a diffuse disc bulge. There are degenerative changes of the facets and hypertrophy of the ligamentum flavum. No significant central spinal canal stenosis is present. Hgny-xg-yeytoxyt b ilateral neural foraminal stenosis is present. L4-5: There is a mild diffuse disc bulge. There are degenerative changes of the facets and ligamentu m flavum. There is mild narrowing of the central spinal canal. There is marked right and mild left neural foraminal stenosis. L5-S1: No disc herniations or bulges are present. No central spinal canal or neural foraminal stenosi s.There are degenerative changes seen at the facets. Soft tissues: The visualized SI joints and sacrum are well maintained. The paraspinal soft tissues ar e unremarkable. IMPRESSION: Multilevel degenerative changes in the lumbar spine as described above. DATA REPOSITORY:
== END 2023-11-28 01:47 ==
LOC: DI 01:28
PROVIDERS: PCP Family Medicine; Visit Provider Family Medicine
DX: M48.061 Spinal stenosis, lumbar region without neurogenic claudication (principal)
CPT/HCPCS: 72148

== ENCOUNTER 2024-01-11 03:10 | Outpatient (CLI) | payer MEDICARE, OTHER, SELFPAY ==
[2024-01-11 12:20] LABS: HCT 50.4 % (40.0-50.0); MCH 33.6 pg (27.0-33.0); MCHC 33.7 % (32.0-36.0); MCV 100 fL (80-95); MPV 10.5 fL (8.0-11.0); Platelet Count 169 10^3/uL (130-400); RBC 5.06 10^6/uL (4.36-5.78); RDW 12.9 % (11.8-14.1); RDW-SD 47.4 fL; WBC 7.31 10^3/uL (4.4-10.8)
[2024-01-11 12:51] LABS: Iron 136 ug/dL (65-175)
[2024-01-11 13:19] LABS: ALT 25 U/L (16-63); AST 21 U/L (15-37); Albumin 3.8 g/dL (3.4-5.0); Alkaline Phosphatase 109 U/L (46-116); Anion Gap 9.2 mmol/L (3-11); BUN 20 mg/dL (7-18); Bilirubin, Total 1.29 mg/dL (0.2-1.0); CO2 28.8 mmol/L (21.0-32.0); Calcium 9.2 mg/dL (8.5-10.1); Chloride 105 mmol/L (98-107); Estimated GFR 79.97 (mL/min/1.73m2); Ferritin 269 ng/mL (26-388); Folate 17.6 ng/mL (8.6-20.0); Glucose 100 mg/dL (74-106); Potassium 4.6 mmol/L (3.5-5.1); Sodium 143 mmol/L (136-145); TSH (W/Ref FT4) 1.32 uIU/mL (0.36-3.74); Total Protein 6.9 g/dL (6.4-8.2); Vitamin B12 478 pg/mL (193-986)
== END 2024-01-11 03:11 | disposition home or self-care (01) ==
LOC: LOS 03:10
PROVIDERS: PCP Family Medicine; Visit Provider Family Medicine
DX: R71.8 Other abnormality of red blood cells (principal); I10 Essential (primary) hypertension; R17 Unspecified jaundice
CPT/HCPCS: 36415; 80053; 85027; 82607; 82728; 82746; 83540; 84443

== ENCOUNTER → 2024-03-12 10:26 | Outpatient (BNVA) | payer MEDICARE, OTHER, SELFPAY | PROVIDERS: PCP Family Medicine; Referring Provider Family Medicine; Visit Provider Nurse Practitioner Adult Health | DX: G56.01 Carpal tunnel syndrome, right upper limb (principal) | CPT/HCPCS: 95908; 99213 ==

== ENCOUNTER → 2024-03-28 12:48 | Outpatient (BNVA) | payer MEDICARE, OTHER, SELFPAY | PROVIDERS: PCP Family Medicine; Referring Provider Family Medicine; Visit Provider Physical Therapy Assistant ==

== ENCOUNTER 2024-03-28 13:07 | Emergency (ER) | payer MEDICARE, OTHER, SELFPAY ==
[2024-03-28] VITALS (22 sets, daily range): BP systolic 103–192; BP diastolic 57–118; PULSE 53–155; RESP 13–27; TEMP 36.6–36.8; O2SAT 97–99
--- NOTE | 2024-03-28 13:00 | RT.EKG_ITS ---
APPROVED REPORT Exam: Resting ECG Reason for Exam: A-Fib Patient Location: E HR:159 bpm ECG Measurements Heart Rate 159 AXIS [place] [id number] P [id number] QRSd 91 QRS 6 QT 288 T 125 QTc 465 Conclusion Atrial fibrillation with rapid V-rate...A-rate 352 Repolarization abnormality, prob rate related...ST dep, T neg, tachycardia
--- NOTE | 2024-03-28 13:32 | ED.GENADUL_ITS ---
Discharge Plan Disposition Patient Disposition: Home Condition: Stable Discharge Details Clinical Impression: Atrial fibrillation, Heart palpitations Primary Care Provider: Lindsey Herndon ED Provider: Cristiana Reilly Home Meds and New Rx's Prescriptions: New diltiazem HCl 60 mg capsule,extended release 12 hr 60 mg PO BID 30 Days Qty: 60 0RF Xarelto 20 mg tablet 20 mg PO QPM Qty: 30 0RF Rx Instructions: must administer with evening meal No Action tamsulosin 0.4 mg capsule 0.4 mg PO QHS Qty: 90 5RF Rx Instructions: patient will call when needed Discharge Instructions Instructions: Palpitations ED, Atrial Fibrillation and Atrial Flutter ED Additional Instructions: As we discussed, you are diagnosed with atrial fibrillation which is an abnormal heart rhythm. While we are able to lower your heart rate you are not back to normal sinus rhythm at this point. Because of the risk of stroke and complications of blood clot, we are starting you on a blood thinner. We are beginning you on Xarelto, your next dose will be due tomorrow morning. We also continue with your rate controlling medication, diltiazem, next dose due tomorrow morning. Please follow-up with your primary care next week for reevaluation. They are arranging for Holter monitor, echocardiogram and cardiology follow-up. If in the meantime you develop lightheadedness, shortness of breath, chest pain or other new/worsening send please seek care urgently once again. Referrals: Lindsey Herndon MD, MA [Primary Care Provider] - Discharge Data Discharge Date/Time-TO BE ENTERED AT DEPARTURE: 03/28/24 16:13 HPI General Date/Time Provider Initiated Documentation: 03/28/24 13:09 . Limitations to Documentation: no limitations . Information obtained by: patient, RN notes reviewed and old records reviewed . History of Present Illness 73 year old M presents to the emergency department with the chief complaint of palpitations, tachycardia, described as moderate, Quality is described as other (denies any pain, reports he was dizzy but this has subsided), Patient started experiencing this hour(s) and it has been constant. No relieving factors improve symptom(s), No exacerbating factors reported . Patient notes denies chest pain, cough, fever/chills, headaches, loss of appetite, nausea/vomiting, rash, shortness of breath, syncope and weakness. Patient did receive the following treatments prior to arrival, none Related Data Home Medications ?Medication ?Instructions ?Recorded ?Confirmed tamsulosin 0.4 mg capsule 0.4 mg PO QHS #90 caps 11/21/23 03/28/24 diltiazem HCl 60 mg 60 mg PO BID 30 days #60 caps 03/28/24 capsule,extended release 12 hr rivaroxaban 20 mg tablet (Xarelto) 20 mg PO QPM #30 tabs 03/28/24 Previous Rx's ?Medication ?Instructions ?Recorded tamsulosin 0.4 mg capsule 0.4 mg PO QHS #90 caps 11/21/23 diltiazem HCl 60 mg 60 mg PO BID 30 days #60 caps 03/28/24 capsule,extended release 12 hr rivaroxaban 20 mg tablet (Xarelto) 20 mg PO QPM #30 tabs 03/28/24 Allergies Allergy/AdvReac Type Severity Reaction Status Date / Time No Known Allergies Allergy Verified 03/28/24 12:55 General Stated Complaint: Chest Pain TRAVIS: 3 Review of Systems Constitutional Constitutional: Reports as per HPI, Denies chills, Denies fever(s), Denies headache(s), Denies lethargy and Denies poor appetite Eyes Eyes: Denies change in vision ENT Ears, Nose, Mouth, and Throat: Denies headache(s) Cardiovascular Cardiovascular: Reports as per HPI, Denies dyspnea and Denies dyspnea on exertion Respiratory Respiratory: Reports as per HPI, Denies chest congestion, Denies cough, Denies pain on inspiration, Denies pain with cough, Denies dyspnea and Denies dyspnea on exertion Gastrointestinal Gastrointestinal: Reports as per HPI, Denies abdominal pain, Denies diarrhea, Denies nausea and Denies vomiting Genitourinary Genitourinary: Denies system reviewed and no additional complaints, except as documented (denies change in urinary habits) Integumentary/Breasts Skin/Breast: Reports as per HPI and Denies rash Neurologic Neurologic: Reports as per HPI and Denies headache(s) Exam Const General: cooperative, healthy appearing, comfortable, no acute distress, well developed and anxious Nutritional Appearance: average body habitus and well nourished Orientation: alert, awake and oriented x3 HENMT Head: normal to inspection Ears: hearing grossly normal bilaterally Mouth: moist mucous membranes Resp Effort & Inspection: normal respiratory effort, able to speak in complete sentences and no respiratory distress Auscultation: clear to auscultation bilaterally, no rales, no rhonchi and no wheezes Cardio Rate: tachycardic Rhythm: abnormal rhythm irregularly irregular Heart Sounds: S1 normal and S2 normal GI Inspection: normal to inspection, no edema and non-distended Palpation: soft and nontender Skin General skin exam: no rashes or lesions noted Trauma: no lacerations or abrasions Neuro General: patient alert, patient awake and patient oriented x3 Cognition: normal cognition Speech: speech normal Gait: normal gait Extrem General: normal to inspection, capillary refill normal, no pedal edema, no calf tenderness and normal gait Course Vital Signs Vital signs: Vital Signs Temperature 36.8 C 03/28/24 13:15 Pulse 92 H 03/28/24 13:15 Respiratory Rate 20 03/28/24 13:15 Blood Pressure 152/78 H 03/28/24 13:15 Pulse Oximetry 98 03/28/24 13:15 Temperature 36.8 C 03/28/24 13:15 Temperature Source Oral 03/28/24 13:15 Pulse 92 H 03/28/24 13:15 Respiratory Rate 20 03/28/24 13:15 Blood Pressure 152/78 H 03/28/24 13:15 Blood Pressure Position Sitting 03/28/24 13:15 Pulse Oximetry 98 03/28/24 13:15 Oxygen Delivery Method Room Air 03/28/24 13:15 Oxygen Flow Rate 0 03/28/24 13:15 Pain Level 0 03/28/24 13:15 Comment pulse checked manually, discrepancy from EKG and vital sign machine. This RN check radial pulse, noted to be irregular 03/28/24 13:15 Medical Decision Making Patient is a pleasant 73-year-old male past medical history significant for hypertension and anxiety, presenting today with chief complaint of palpitations. He reports that this morning around 730 when he was exercising he suddenly developed lightheadedness and palpitations. Denies any chest pain. States that he initially felt slightly short of breath but this is not subsided. Reports that he did stop exercising, went home to rest and helps liquid subside but this is not. He was evaluated by an EMT at the gym he exercises at who advised patient examined concerning for atrial fibrillation. Patient is not anticoagulated. He is never had symptoms like this before. He notes that definitive time in which it started. On exam, patient appears nontoxic. He is hypertensive with blood pressure of 152/78, heart rate around 140. Does appear to be A-fib. Obtain an EKG and will begin the patient on diltiazem. Patient is now hemodynamically stable, no reason to immediately cardiovert him. Patient reports taht he has been drinking more over the holdisays, may be the cause of his symtpoms today. ECG reviewed by Dr. Fair showing atrial fibrillation with a heart rate of 159. Patient has new onset atrial fibrillation. Will evaluate with labs to assess fo r underlying cause of this. However, with his increased alcohol intake, this may be potentially driving factor. No known family history. Will give IV diltiazem. Consider cardioversion in but based on risks, will hold off on this and attempt rate control. After IV diltiazem, patient's heart rate down into the 90s although it can jump up to 120 periodically. Patient reports he is feeling significantly better in the palpitations that he was having initially has since subsided. [id number] score 2, they recommend anticoatulation. Hasbled score is 2 putting him at moderate risk for major bleeding. Will need f/u with cardiology and monitor. Primary care, Dr. Herndon, at bedside. We discussed rate/rhythm control and anticoagulation. She agrees with anticoagulation. Will transion to PO diltiazem. Awaiting repeat troponin then will start oral anticoagulation. Troponin negative x 2. As this is high-sensitivity, based on patient's heart score, we will hold off on third troponin. Discussed choice of anticoagulation with the patient as well as his primary care provider. Based on recommendations from primary care, he was concerned for potential cost with Eliquis, will begin the patient on Xarelto. I did touch base with pharmacy given the contraindication with diltiazem but based on the patient's renal function, they did not feel that this is a contraindication and advised that we may continue with diltiazem and Xarelto as discussed with patient and his primary care provider. Patient feels safe going home. Strict return precautions were discussed. We discussed the side effects of the medications. 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 All of his questions and concerns were addressed and patient is in agreement this plan. Patient hydrating orally. This documentation was generated using [employer] dictation system, please disregard any oddities of phrase or misspellings. Quality:SDOH Health Related Social Needs: No Data to Display PFSH All Active Problems (Updated 03/28/24 @ 15:47 by JANEL Reyes) Heart palpitations (Acute) Atrial fibrillation (Chronic) Tubular adenoma of colon (Acute) Elevated bilirubin (Acute) Elevated hematocrit (Acute) Right carpal tunnel syndrome (Acute) Spinal stenosis of lumbar region (Acute) Rib pain on left side (Acute) Osteoarthritis of carpometacarpal (CMC) joint of right thumb (Acute) De Quervain's tenosynovitis, right (Acute) Arthritis of right elbow (Acute) Shoulder arthritis (Acute) BPH (benign prostatic hyperplasia) (Chronic) Seborrheic keratosis (Acute) Low back pain, non-specific (Acute) rotoscoliotic deformities Posterior vitreous detachment of right eye (Acute 06/05/17) [facility] Right rotator cuff tendinitis (Acute) Injected: 04/14/2020; 09/14/2018 Biceps tendinitis of right shoulder (Acute) Cervical pain (Acute) Carpal tunnel syndrome on both sides (Acute) Right > Left S/P L ECTR: 05/18/2022 Calcific tendonitis of left shoulder (Acute) Injected: 04/14/2020 Chronic left hip pain (Acute) Calcific tendonitis of right shoulder (Acute) Medical History HTN (hypertension) Enlarged prostate Duodenal ulcer Leg swelling Melena Anxiety Acute dehydration Acute GI bleeding Anemia Patellar clunk syndrome of right knee Acute pain of both shoulders (10/26/16) 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) Diverticulosis Colorectal polyp detected on colonoscopy (~05/15/18) adenoma History of right inguinal hernia Lipoma of abdominal wall Sebaceous cyst Lumbago Back pain with sciatica Surgical History History of arthroscopy of left shoulder (03/23/22) Rotator cuff repair and open biceps tenodesis Hx of inguinal hernia repair r side Cubital tunnel syndrome on left S/P Release: 05/18/2022 Arthrofibrosis of total knee arthroplasty B/L S/P b/l knee arthroscopy with synovectomy and manipulation: 04/30/2019 History of total left knee replacement (TKR) (04/11/17) History of arthroscopy of knee S/P colonoscopy (~05/15/18) History of total right knee replacement (TKR) (03/15/18) 03/15/2018 History of arthroscopy of right knee History of arthroscopy of left knee multiple History of repair of anterior cruciate ligament of left knee Family History Mother , 92 Hyperlipidemia Father , 86 Dementia Stroke COPD (chronic obstructive pulmonary disease) Sister No problems noted. Maternal Grandfather , SUICIDE at age 45. No problems noted. Paternal Grandfather Heart disease Maternal Grandmother Stroke Paternal Grandmother Neoplasm Social History Smoking/Tobacco Use Status: Former Tobacco Use Quit Date: 03/27/72 Tobacco: How many years used: 4 Smokeless tobacco user: chewing tobacco Quit status: considering quitting Smoking risk assessment performed?: Yes Alcohol Intake: current Alcohol Intake frequency: 0-2 drinks per day Alcohol type: hard liquor Details: 5/week Drug use: Never Substance use type: does not use Details: 05/18/22 - Pt had one drink 05/17/22 Caregiver/Support person: Yes Household members: spouse Housing: house Communication Needs: None Pets and animals: No Sexually active: Yes Do you think of yourself as: straight/heterosexual Current gender identity: male What is your relationship status?: How often do you talk on the phone with friends or family?: twice per week How often do you get together with friends or relatives?: twice per week How often do you attend amish or episcopal services?: decline to answer Do you belong to any clubs or organized social groups?: no Panel score (0-1 are the most socially isolated patients): 2 What type of physical activity do you participate in: weight lifting Duration: 60-90 minutes/day Frequency: 3-4 times per week Drea/Worship: No preference Special drea needs: No Additional Social history: unable to assess luis alferdo
[2024-03-28] MEDS: dilTIAZem 25 MG/5 ML VIAL 20 MG IVP (13:43)
--- NOTE | 2024-03-28 13:45 | RT.EKG_ITS ---
APPROVED REPORT Exam: Resting ECG Reason for Exam: A-Fib Patient Location: E HR:86 bpm ECG Measurements Heart Rate 86 [place] CO [id number] P [id number] QRSd 90 QRS 23 QT 355 T 59 QTc 424 Conclusion Atrial fibrillation...V-rate 64- 93, irreg A-activity
[2024-03-28 14:26] LABS: Abs Immature Grans 0.03 10^3/uL (0.0-0.06); Absolute Basophil Count 0.03 10^3/uL (0.0-0.2); Absolute Lymphocyte Count 2.11 10^3/uL (1.2-3.4); Absolute Monocyte Count 0.99 10^3/uL (0.1-0.8); Absolute Neutrophil Count 5.42 10^3/uL (1.2-6.7); Basophils % 0.3 %; Eosinophils % 1.2 %; HCT 52.6 % (40.0-50.0); HGB 17.2 g/dL (13.5-17.5); Immature Grans % 0.3 %; Lymphocytes % 24.3 %; MCH 32.6 pg (27.0-33.0); MCHC 32.7 % (32.0-36.0); MCV 100 fL (80-95); MPV 9.9 fL (8.0-11.0); Monocytes % 11.4 %; Neutrophils % 62.5 %; Platelet Count 178 10^3/uL (130-400); RBC 5.27 10^6/uL (4.36-5.78); RDW 12.7 % (11.8-14.1); RDW-SD 47.8 fL; WBC 8.68 10^3/uL (4.4-10.8)
[2024-03-28 14:34] LABS: PTT Activated 25.2 sec (23.6-32.8); Prothrombin Time 10.2 sec (9.1-11.1)
[2024-03-28 14:45] LABS: ALT 33 U/L (16-63); AST 24 U/L (15-37); Albumin 3.8 g/dL (3.4-5.0); Alkaline Phosphatase 110 U/L (46-116); Anion Gap 8.7 mmol/L (3-11); BUN 23 mg/dL (7-18); Bilirubin, Total 0.82 mg/dL (0.2-1.0); CO2 27.3 mmol/L (21.0-32.0); Calcium 9.6 mg/dL (8.5-10.1); Chloride 106 mmol/L (98-107); Estimated GFR 79.97 (mL/min/1.73m2); Glucose 117 mg/dL (74-106); Magnesium 1.9 mg/dL (1.8-2.4); Potassium 4.2 mmol/L (3.5-5.1); Sodium 142 mmol/L (136-145); TSH (W/Ref FT4) 1.94 uIU/mL (0.36-3.74); Troponin I 26 ng/L (<or=76)
[2024-03-28 14:51] LABS: Troponin I 35 ng/L (<or=76)
[2024-03-28] MEDS: Aspirin 81 MG CHEW 324 MG CH (15:03)
[2024-03-28] MEDS: dilTIAZem 30 MG TAB 60 MG PO (15:15)
[2024-03-28] MEDS: Rivaroxaban 10 MG TABLET 20 MG PO (16:11)
== END 2024-03-28 16:13 | disposition home or self-care (01) ==
PROVIDERS: Emergency Provider Physician Assistant; PCP Family Medicine
DX: I48.91 Unspecified atrial fibrillation (principal); I10 Essential (primary) hypertension; F41.9 Anxiety disorder, unspecified; Z87.891 Personal history of nicotine dependence
CPT/HCPCS: 80053; 93005; 96374; 99284; 83735; 84443; 84484; 85025; 85610; 85730; 93010; 93225; 93226

== ENCOUNTER 2024-04-03 07:42 | Emergency (ER) | payer MEDICARE, OTHER, SELFPAY ==
[2024-04-03 07:44] VITALS: BP 161/88; PULSE 100; RESP 17; O2SAT 100
--- NOTE | 2024-04-03 08:08 | ED.GENADUL_ITS ---
Discharge Plan Disposition Patient Disposition: Home Condition: Good Discharge Details Clinical Impression: Acute neck pain, Muscle spasm Primary Care Provider: Lindsey Herndon ED Provider: Cristiana Reilly Home Meds and New Rx's Prescriptions: New methocarbamol 750 mg tablet 750 mg PO QID PRN (Reason: muscle spasm) Qty: 10 0RF Continued tamsulosin 0.4 mg capsule 0.4 mg PO QHS Qty: 90 5RF Rx Instructions: patient will call when needed diltiazem HCl 60 mg capsule,extended release 12 hr 60 mg PO BID 30 Days Qty: 60 0RF Xarelto 20 mg tablet 20 mg PO QPM Qty: 30 0RF Rx Instructions: must administer with evening meal Discharge Instructions Instructions: Neck Pain Exercises, Muscle Spasm ED Additional Instructions: Your CT scan was reassuring here today. No evidence of fracture, dislocation, impairment of your blood flow. However, I am concerned that you had significant muscle spasm. You also did have arthritic changes in your neck. Attached is a referral for physical therapy. I also encouraged her to use heat to help relax the muscles, encouraged gentle stretching. We can continue with Tylenol as directed on the packaging, no more than 3000 mg daily. Please avoid anti- inflammatories such as ibuprofen. Encourage hydration. You may use the methocarbamol as prescribed for muscle spasm. Please not drink alcohol or drive while taking this medication. If you develop any numbness, tingling, increased pain, weakness or other new/worsening symptoms please to care urgently once again. Otherwise, please keep your appointment tomorrow with your primary care provider. Referrals: Lindsey Herndon MD, [place] [Primary Care Provider] - [facility] General Date/Time Provider Initiated Documentation: 04/03/24 07:55 . Limitations to Documentation: no limitations . Information obtained by: patient, family and RN notes reviewed . History of Present Illness 73 year old M presents to the emergency department with the chief complaint of right sided neck pain, OLSEN, right arm pain, described as severe, with intensity rated at 10. Quality is described as stabbing, and is localized to the face, neck, right and upper extremity. Patient started experiencing this hour(s) and it has been constant. No relieving factors improve symptom(s), Movement worsens symptoms . Patient notes no other symptoms.. Patient did receive the following treatments prior to arrival, none Related Data Home Medications ?Medication ?Instructions ?Recorded ?Confirmed tamsulosin 0.4 mg capsule 0.4 mg PO QHS #90 caps 11/21/23 04/03/24 diltiazem HCl 60 mg 60 mg PO BID 30 days #60 caps 03/28/24 04/03/24 capsule,extended release 12 hr rivaroxaban 20 mg tablet (Xarelto) 20 mg PO QPM #30 tabs 03/28/24 04/03/24 methocarbamol 750 mg tablet 750 mg PO QID PRN muscle spasm #10 04/03/24 tabs Previous Rx's ?Medication ?Instructions ?Recorded tamsulosin 0.4 mg capsule 0.4 mg PO QHS #90 caps 11/21/23 diltiazem HCl 60 mg 60 mg PO BID 30 days #60 caps 03/28/24 capsule,extended release 12 hr rivaroxaban 20 mg tablet (Xarelto) 20 mg PO QPM #30 tabs 03/28/24 methocarbamol 750 mg tablet 750 mg PO QID PRN muscle spasm #10 04/03/24 tabs Allergies Allergy/AdvReac Type Severity Reaction Status Date / Time No Known Allergies Allergy Verified 04/03/24 07:49 General Stated Complaint: Nk/Back Pain TRAVIS: 3 Review of Systems Constitutional Constitutional: Reports as per HPI, Denies chills, Denies fever(s), Denies frequent falls, Reports headache(s) and Denies weakness Eyes Eyes: Reports as per HPI, Denies blurry vision and Denies change in vision ENT Ears, Nose, Mouth, and Throat: Denies vertigo and Reports headache(s) Cardiovascular Cardiovascular: Reports as per HPI, Denies chest pain, Denies lightheadedness, Denies radiating jaw, neck or arm pain, Denies dyspnea and Denies dyspnea on exertion Respiratory Respiratory: Reports as per HPI, Denies chest congestion, Denies cough, Denies d yspnea and Denies dyspnea on exertion Gastrointestinal Gastrointestinal: Reports as per HPI, Denies abdominal pain, Denies change in bowel habits, Denies nausea and Denies vomiting Genitourinary Genitourinary: Reports system reviewed and no additional complaints, except as documented (denies change in urinary habits) Musculoskeletal Musculoskeletal: Reports as per HPI, Denies back pain, Denies myalgias, Denies muscle cramps and Denies numbness Neurologic Neurologic: Reports as per HPI, Denies abnormal movements, Denies abnormal speech, Denies behavioral changes, Denies confusion, Denies vertigo, Denies frequent falls, Reports headache(s), Denies localized weakness, Denies numbness, Denies sensory deficit and Denies weakness Psychiatric Psychiatric: Denies behavioral changes and Denies confusion Exam Const General: cooperative, healthy appearing, uncomfortable, no acute distress, well developed and well groomed Nutritional Appearance: average body habitus and well nourished Orientation: alert, awake and oriented x3 HENAR Head: normal to inspection, no palpable skull fracture, normocephalic and atraumatic Ears: hearing grossly normal bilaterally and external ears normal Mouth: oral mucosae normal and moist mucous membranes Throat: posterior oropharynx normal Eyes General: appearance normal, both eyes and all related structures Alignment and Position: alignment normal Periorbital: periorbital findings normal Eyelids: eyelids normal Sclera: sclerae normal Cornea: corneas normal Pupils: PERRL EOM: EOM intact bilaterally Resp Effort & Inspection: normal respiratory effort, able to speak in complete sentences and no respiratory distress Auscultation: clear to auscultation bilaterally, no rales, no rhonchi and no wheezes Cardio Rate: regular rate Rhythm: regular rhythm Heart Sounds: S1 normal and S2 normal Back/Spine/Pelvis Cervical Spine: normal cervical lordosis, No cervical ROM normal (very stiff, no movement), cervical muscular tenderness (along right side), pain with cervical ROM, cervical spasm, No cervical spinal tenderness (no midline tenderness) and No step off deformity Skin General skin exam: no rashes or lesions noted Neuro General: patient alert, patient awake and patient oriented x3 Cranial Nerves: CN's II-XI intact bilaterally Cognition: normal cognition Speech: speech normal Gait: normal gait Motor: muscle tone normal throughout, strength 5/5 throughout, no pronator drift, no movement abnormalities noted and no fasciculations Sensory Exam: no sensory deficits noted Coordination: [id number] test normal Course Vital Signs Vital signs: Vital Signs Pulse 100 H 04/03/24 07:44 Respiratory Rate 17 04/03/24 07:44 Blood Pressure 161/88 H 04/03/24 07:44 Pulse Oximetry 100 04/03/24 07:44 Pulse 100 H 04/03/24 07:44 Respiratory Rate 17 01/08/25 07:44 Blood Pressure 161/88 H 04/03/24 07:44 Blood Pressure Position Sitting 04/03/24 07:44 Pulse Oximetry 100 04/03/24 07:44 Oxygen Delivery Method Room Air 04/03/24 07:44 Oxygen Flow Rate 0 04/03/24 07:44 Pain Level 9 04/03/24 07:50 Medical Decision Making Patient is a pleasant 73-year-old male, companied by his , past medical history significant for elevated blood pressure, recently diagnosed atrial fibrillation, anxiety, back pain with sciatica, presenting today with chief complaint of neck pain, headache and right-sided discomfort. He reports that yesterday he was seen by his chiropractor initially there for a lumbar manipulation. However, he reports that he then mention that he was also having some neck discomfort which sounds to be chronic and largely unchanged. Chiropractor manipulated his neck and patient had a sudden onset of severe pain along the right arm, right side of his face and severe headache that is continually increased reaching maximal severity around 11 PM last night. Manipulation was at 10 AM yesterday. Patient is anticoagulated on Xarelto. He denies any neurologic deficits, no numbness, weakness. His has not noted a ny change in his speech or cognition. Patient last took Xarelto yesterday. On exam, patient appears very uncomfortable, moving very stiffly and appears to be slightly tremulous with pain. He is hemodynamically stable. No appreciate any significant neurological deficits. Exam is limited at this point secondary to his significant discomfort and will begin patient on fentanyl. Noted sigfnicant spasm with palpation, no deformity but will reexamine after patient's been medicated. Primary concern at this point is for a vertebral artery dissection, we will move forward with a CTA. Also considered nerve impingement but given the wide distribution I do find this slightly less likely. However, if CTA is unremarkable will consider MRI. Patient sounds to be in NSR, he has upcoming f/u with PCP and cardiology, will obrtain and ECG as he was only in a fib on last visit in preparation for these visits. Patient much imporved with the fentanyl. When back from the CT, will give diazepam given the significant spasm he is experiencing. Muscle spasm reduced, pain improved. CT reviewed by radiologist: MPRESSION: 1. No large vessel occlusion or significant stenosis on the CT angiography of the head. 2. No acute intracranial process. 3. No occlusion or significant stenosis on the CT angiography of the neck. 4. Findings were discussed with the emergency department on 04/03/2024. Thyroid nodule seen but no f/u was recommended. Discussed findings with patient, he is feeling much improved. reports he has chronic decreased ROM of the c-spine, he feels that extension and flextion are normal at this time but rotation still causes some discomfort. No neurologic deficit. ECG was obtained as patient was noted to be in normal sinus rhythm which was confirmed to the ECG, no acute ischemic changes appreciated. I did encourage the patient continue with his diltiazem and Xarelto until further evaluation including Holter monitor can be completed. He is anxious to stop some of his meds but advised that she wait until cleared to do so by cardiology. Based on the imaging, reassuring neurologic exam, I do not see need for advanced imaging such as an MRI. If pain persist, this may be pursued as an outpatient. Patient has an appointment tomorrow with his primary care. Believe the majority of his pain was associated more with muscle spasm as he did have a notable spasm on exam. Patient is improved after the IV diazepam, will transition to methocarbamol in hopes that this will be less sedating for him. Encourage hydration. We discussed gentle stretching, massage, heat. Encouraged topical option such as lidocaine patches as well. Strict return precautions were discussed. Patient is feeling improved and agrees with this plan, will keep his appointment with primary care tomorrow. All of his questions and concerns were addressed and patient is in agreement with this plan. This documentation was generated using [employer]ipation system, please disregard any oddities of phrase or misspellings. Quality:SDOH Health Related Social Needs: No Data to Display PFSH All Active Problems (Updated 04/03/24 @ 09:59 by JANEL Reyes) Muscle spasm (Acute) Acute neck pain (Acute) Heart palpitations (Acute) Atrial fibrillation (Chronic) Tubular adenoma of colon (Acute) Elevated bilirubin (Acute) Elevated hematocrit (Acute) Right carpal tunnel syndrome (Acute) Spinal stenosis of lumbar region (Acute) Rib pain on left side (Acute) Osteoarthritis of carpometacarpal (CMC) joint of right thumb (Acute) De Quervain's tenosynovitis, right (Acute) Arthritis of right elbow (Acute) Shoulder arthritis (Acute) BPH (benign prostatic hyperplasia) (Chronic) Seborrheic keratosis (Acute) Low back pain, non-specific (Acute) rotoscoliotic deformities Posterior vitreous detachment of right eye (Acute 06/05/17) [facility] Right rotator cuff tendinitis (Acute) Injected: 04/14/2020; 09/14/2018 Biceps tendinitis of right shoulder (Acute) Cervical pain (Acute) Carpal tunnel syndrome on both sides (Acute) Right > Left S/P L ECTR: 05/18/2022 Calcific tendonitis of left shoulder (Acute) Injected: 04/14/2020 Chronic left hip pain (Acute) Calcific tendonitis of right shoulder (Acute) Medical History HTN (hypertension) Enlarged prostate Duodenal ulcer Leg swelling Melena Anxiety Acute dehydration Acute GI bleeding Anemia Patellar clunk syndrome of right knee Acute pain of both shoulders (10/26/16) 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) Diverticulosis Colorectal polyp detected on colonoscopy (~05/15/18) adenoma History of right inguinal hernia Lipoma of abdominal wall Sebaceous cyst Lumbago Back pain with sciatica Surgical History History of arthroscopy of left shoulder (03/23/22) Rotator cuff repair and open biceps tenodesis Hx of inguinal hernia repair r side Cubital tunnel syndrome on left S/P Release: 05/18/2022 Arthrofibrosis of total knee arthroplasty B/L S/P b/l knee arthroscopy with synovectomy and manipulation: 04/30/2019 History of total left knee replacement (TKR) (04/11/17) History of arthroscopy of knee S/P colonoscopy (~05/15/18) History of total right knee replacement (TKR) (03/15/18) 03/15/2018 History of arthroscopy of right knee History of arthroscopy of left knee multiple History of repair of anterior cruciate ligament of left knee Family History Mother , 92 Hyperlipidemia Father , 86 Dementia Stroke COPD (chronic obstructive pulmonary disease) Sister No problems noted. Maternal Grandfather , SUICIDE at age 45. No problems noted. Paternal Grandfather Heart disease Maternal Grandmother Stroke Paternal Grandmother Neoplasm Social History Smoking/Tobacco Use Status: Former Tobacco Use Quit Date: 03/27/72 Tobacco: How many years used: 4 Smokeless tobacco user: chewing tobacco Quit status: considering quitting Smoking risk assessment performed?: Yes Alcohol Intake: current Alcohol Intake frequency: 0-2 drinks per day Alcohol type: hard liquor Details: 5/week Drug use: Never Substance use type: does not use Details: 05/18/22 - Pt had one drink 05/17/22 Caregiver/Support person: Yes Household members: spouse Housing: house Communication Needs: None Pets and animals: No Sexually active: Yes Do you think of yourself as: straight/heterosexual Current gender identity: male What is your relationship status?: How often do you talk on the phone with friends or family?: twice per week How often do you get together with friends or relatives?: twice per week How often do you attend buddhist or bahai services?: decline to answer Do you belong to any clubs or organized social groups?: no Panel score (0-1 are the most socially isolated patients): 2 What type of physical activity do you participate in: weight lifting Duration: 60-90 minutes/day Frequency: 3-4 times per week Drea/Sabianism: No preference Special drea needs: No Additional Social history: unable to assess luis alfredo
[2024-04-03 08:20] LABS: Abs Immature Grans 0.03 10^3/uL (0.0-0.06); Absolute Basophil Count 0.04 10^3/uL (0.0-0.2); Absolute Eosinophil Count 0.06 10^3/uL (0.0-0.7); Absolute Lymphocyte Count 1.18 10^3/uL (1.2-3.4); Absolute Monocyte Count 0.75 10^3/uL (0.1-0.8); Absolute Neutrophil Count 7.37 10^3/uL (1.2-6.7); Basophils % 0.4 %; Eosinophils % 0.6 %; HCT 53.2 % (40.0-50.0); HGB 17.8 g/dL (13.5-17.5); Immature Grans % 0.3 %; Lymphocytes % 12.5 %; MCH 33.1 pg (27.0-33.0); MCHC 33.5 % (32.0-36.0); MCV 99 fL (80-95); MPV 9.8 fL (8.0-11.0); Neutrophils % 78.2 %; Platelet Count 171 10^3/uL (130-400); RBC 5.37 10^6/uL (4.36-5.78); RDW 12.2 % (11.8-14.1); RDW-SD 45.4 fL; WBC 9.43 10^3/uL (4.4-10.8)
[2024-04-03] MEDS: ACETAMINOPHEN 1,000 MG/100 ML BAG 400 MG IVPB (08:24)
[2024-04-03] MEDS: fentaNYL 100 MCG/2 ML VIAL 50 MCG IVP (08:24)
--- NOTE | 2024-04-03 08:30 | RT.EKG_ITS ---
APPROVED REPORT Exam: Resting ECG Reason for Exam: neck pain Patient Location: E HR:61 bpm ECG Measurements Heart Rate 61 AXIS ME 170 P 2 QRSd 107 QRS 14 QT 432 T 30 QTc 437 Conclusion Sinus rhythm...normal P axis, V-rate 60- 99
[2024-04-03 08:35] LABS: ALT 43 U/L (16-63); AST 26 U/L (15-37); Alkaline Phosphatase 113 U/L (46-116); Anion Gap 10.3 mmol/L (3-11); BUN 20 mg/dL (7-18); Bilirubin, Total 1.06 mg/dL (0.2-1.0); CO2 28.7 mmol/L (21.0-32.0); Calcium 9.4 mg/dL (8.5-10.1); Chloride 104 mmol/L (98-107); Estimated GFR 79.97 (mL/min/1.73m2); Glucose 138 mg/dL (74-106); Magnesium 1.7 mg/dL (1.8-2.4); Sodium 143 mmol/L (136-145); Total Protein 7.4 g/dL (6.4-8.2)
[2024-04-03] MEDS: Omnipaque 350 MG/ML 100 ML BTL IJ (08:37)
[2024-04-03] MEDS: Normal Saline - Diluent 50 ML VIAL IJ (08:38)
--- NOTE | 2024-04-03 08:58 | DI.CT_ITS ---
Exam(s) CT BRAIN NECK CTA EXAM: CT BRAIN NECK CTA CLINICAL HISTORY: manipulated by chiropractor- severe OLSEN, right neck. TECHNIQUE: Imaging Protocol: Axial CT angiography was performed with multi-slice acquisition and mu lti-planar and/or 3D reconstructions. CONTRAST MATERIAL: Intravenous: Omnipaque 350 contrast volume:70 mL COMPARISON: No exams were available for comparison FINDINGS: CT Head W/O and W: Ventricles and Extra axial spaces: Normal in size and morphology for the patient's age. Hemorrhage: None. Cerebral parenchyma: No evidence of an acute territorial infarct. No acute mass effect. Midline shift: None. Brainstem/Cerebellum: Normal. Calvarium: Normal. Visualized Paranasal sinuses/Mastoids: Clear. Soft Tissues: Unremarkable. Enhancement: Unremarkable. CTA Neck W: Common Carotid: Right: No dissection, occlusion or significant stenosis. Left: No dissection, occlusion or significant stenosis. External Carotid: Right: No occlusion or significant stenosis. Left: No occlusion or significant stenosis. Internal Carotid: Right: No dissection, occlusion or significant stenosis. Left: No dissection, occlusion or significant stenosis. There is mild atherosclerosis at the origin of the left internal carotid artery. Vertebral Artery: Right: No dissection, occlusion or significant stenosis. Left: No dissection, occlusion or significant stenosis. Lung Apices: Normal. Bones: Within normal limits for the patient's age. No acute fracture or subluxation. Soft Tissues: Normal. Thyroid gland: There is a tiny hypodensity in the right lobe of the thyroid gland. No follow-up is r ecommended. CTA Brain W: Internal Carotid Arteries: No evidence of an aneurysm, occlusion or significant stenosis. Anterior Cerebral Arteries: Right: No aneurysm, occlusion or significant stenosis. Left: No aneurysm, occlusion or significant stenosis. Middle Cerebral Arteries: Right: No aneurysm, occlusion or significant stenosis. Left: No aneurysm, occlusion or significant stenosis. Posterior Cerebral Arteries: Right: No aneurysm, occlusion or significant stenosis. The right posterior cerebral artery arises fr om the posterior communicating artery which is a normal variant. Left: No aneurysm, occlusion or significant stenosis. Vertebral Arteries: Right: No aneurysm, occlusion or significant stenosis. Left: No aneurysm, occlusion or significant stenosis. Basilar Artery: No aneurysm, occlusion or significant stenosis. IMPRESSION: 1. No large vessel occlusion or significant stenosis on the CT angiography of the head. 2. No acute intracranial process. 3. No occlusion or significant stenosis on the CT angiography of the neck. 4. Findings were discussed with the emergency department on 04/03/2024. RADIATION DOSE DELIVERED: 2,226.36mGy.cm Total DLP DATA REPOSITORY: All CT scans at this facility are submitted to the National Radiology Data Registry (NRDR) Dose Index Registry (DIR) with the [employer] (A[employer]). RADIATION OPTIMIZATION: All CT scans at this facility use at least one of these dose optimization te chniques: automated exposure control; mA and/or kV adjustment per patient size (includes targeted exa ms where dose is matched to clinical indication); or iterative reconstruction.
[2024-04-03] MEDS: diazePAM 10 MG/2 ML SYR 5 MG IVP (09:01)
[2024-04-03 09:02] LABS: PTT Activated 36.6 sec (23.6-32.8); Prothrombin Time 13.2 sec (9.1-11.1)
[2024-04-03 09:04] LABS: INR 1.3 (0.9-1.1)
--- NOTE | 2024-04-03 09:15 | DI.CT_ITS ---
Exam(s) CT CERVICAL SPINE WO EXAM: CT CERVICAL SPINE WO recons CLINICAL HISTORY: pain after manipulation. TECHNIQUE: Imaging Protocol: Axial computed tomography images with coronal and sagittal reformatted images were created and reviewed COMPARISON: CT CT BRAIN NECK CTA from 04/03/2024 FINDINGS: The bone algorithm was used on this examination. Bones: No acute fracture or subluxation. There is normal alignment. Age-appropriate degenerative arielle nges are present. The cervical thoracic junction is intact. Soft Tissues: There is a small nodule seen in the right lobe of the thyroid gland. No follow-up is r ecommended. Lung Apices: Clear. IMPRESSION: 1. No acute fracture or subluxation in the cervical spine. 2. Findings were discussed with the emergency department on 04/03/2024. RADIATION DOSE DELIVERED: Total DLP Total DLP DATA REPOSITORY: All CT scans at this facility are submitted to the National Radiology Data Registry (NRDR) Dose Index Registry (DIR) with the [employer] (ACR). RADIATION OPTIMIZATION: All CT scans at this facility use at least one of these dose optimization te chniques: automated exposure control; mA and/or kV adjustment per patient size (includes targeted exa ms where dose is matched to clinical indication); or iterative reconstruction.
[2024-04-03 10:21] VITALS: BP 132/61; PULSE 50; RESP 15; TEMP 36.5; O2SAT 96
--- NOTE | 2024-04-22 11:44 | NUR.NOTE ---
Form for PT signed by Cristiana Reilly. Sent to Medical Records to scan in to chart. Nursing Note:
== END 2024-04-03 10:21 | disposition home or self-care (01) ==
PROVIDERS: Emergency Provider Physician Assistant; PCP Family Medicine
DX: M54.2 Cervicalgia (principal); M62.830 Muscle spasm of back; I10 Essential (primary) hypertension; I48.91 Unspecified atrial fibrillation; Z79.01 Long term (current) use of anticoagulants; Z87.891 Personal history of nicotine dependence
CPT/HCPCS: 36415; 70496; 70498; 72125; 80053; 93005; 96374; 96375; 99285; 83735; 85025; 85610; 85730; 93010; J0131; J3010; J3360; J3490

== ENCOUNTER 2024-04-05 00:16 | Outpatient (CLI) | payer MEDICARE, OTHER, SELFPAY ==
--- NOTE | 2024-04-05 08:30 | DI.US_ITS ---
APPROVED REPORT EXAM: Comprehensive 2D, Doppler, and color-flow Echocardiogram Patient Location: Out-Patient Jewelsmith: Todd Graf RDCS (AE) Indications: New afib Conclusion Normal left ventricular wall thickness and chamber size. Ejection fraction is 60%. Wall motion is n ormal Normal right ventricular size and function Both atria are normal in size There are no structural valvular abnormalities Estimated right ventricular systolic pressure is 28 mmHg Wall motion Left Ventricle The left ventricle is normal size. The left ventricular systolic function is normal. The left ventric ular ejection fraction is within the normal range. There is normal left ventricular wall thickness. T here is normal LV segmental wall motion. There is no ventricular septal defect visualized. LVEF is 60 %. Right Ventricle The right ventricle is normal size. The right ventricular systolic function is normal. Atria The left atrium size is normal. The right atrium size is normal. The interatrial septum is intact wit h no evidence for an atrial septal defect. Aortic Valve The aortic valve is normal in structure. Aortic valve is trileaflet. There is no aortic valvular sten osis. No aortic regurgitation is present. Mitral Valve The mitral valve is normal in structure. No evidence of mitral valve stenosis. Trace mitral regurgita tion. Tricuspid Valve The tricuspid valve is normal in structure. There is no tricuspid valve stenosis. Mild tricuspid regu rgitation. The RVSP is 28.4 mmHg. Pulmonic Valve The pulmonary valve is normal in structure. There is no pulmonic valvular stenosis. There is no pulmo ld valvular regurgitation. Great Vessels The aortic root is normal in size. The ascending aorta is normal in size. Aortic arch is normal in ca liber. IVC is normal in size and collapses >50% with inspiration. Pericardium There is no pericardial effusion. 2D Dimensions IVSD d PLAX 0.75 cm M: 0.6-1.2 Ao Root d 3.06 cm M: 3.1 - 3.7 LVPW d PLAX 0.73 cm M: 0.6 - 1.2 Ao Asc Diam d 3.04 cm M: 2.6 - 3.4 LVID d PLAX 5.39 cm M: 4.2 - 5.8 LVDs 3.64 cm M: 2.5 - 4.0 LV EF Teichholz 60.4 % FS 32.57 % LV EDV (Teich) 140.8 mL LV ESV (Teich) 55.7 mL Stroke Vol Index (Teich) 47.25 M-Mode TAPSE 2.73 cm (M/F) >1.7 Auto EF LV EDV A4C 104.0 mL LV EDV A2C 102.4 mL LV EDV BP 103.5 mL LV ESV A4C 45.3 mL LV ESV A2C 40.5 mL LV ESV BP 42.7 mL LVEF(%) A4C 56.4 % LVEF(%) A2C 60.4 % LVEF(%) BP 58.8 % LV SV A4C 58.6 ml LV SV A2C 61.9 ml LV SV BP 60.8 ml LV CO A4C 3.6 L/min LV CO A2C 3.8 L/min LV CO BP 3.7 L/min HR A4C 60.89 BPM HR A2C 60.71 BPM LV EDV Index (BP) LA Volume LA Length A4C 3.9 cm LA Length A2C 4.3 cm LA Area A4C s 8.78 cm2 LA Area A2C s 11.65 cm2 LA Vol A4C A-L 16.60 mL LA Vol A2C A-L 26.83 mL LA Vol Biplane A-L 22.0 mL LA Vol/BSA A4C A-L LA Vol/BSA A2C A-L LA Vol/BSA BP A-L 12.2 mL/m2 LA Vol A4C MOD 15.5 mL LA Vol A2C MOD 25.4 mL LA Vol BP MOD 20.6 mL RA Volume RA Area A4C 10.6 cm2 RA ESV A4C (A-L) 22.1mL RA Vol/BSA A4C A-L RA Length A4C 4.4 cm RA ESV A4C (MOD) 21.9mL LV Diastology MV E' medial 0.087 (>0.07 m/s) MV E Vmax 0.69 (0.4-1.3 m/s) MV E/E' MED 7.88 (<14) MV A Vmax 0.90 (0.4-1.3 m/s) MV E' lateral 0.089 (>0.1 m/s) E/A Ratio 0.8 MV E/E' LAT 7.73 (<14) MV E' Average 0.088 m/s MV E/E'(average) 7.80 Aortic Valve AoV Vmax 1.24 m/s LVOT Vmax 0.91 m/s AoV Peak Grad 6.1 mmHg LVOT Peak Grad 3.3 mmHg AoV Area (Vmax) 2.69 cm2 LVOT VTI 0.158 m AoV VTI 0.216 m LVOT Mean Grad 1.6 mmHg AoV Mean Adirel. 0.91 m/s LVOT SV 57.77 mL AoV Mean Grad 3.7 mmHg LVOT Diam s 2.15 cm AoV Area (VTI) 2.68 cm2 AV Regurg Peak Gr. 6.13 mmHg Velocity Ratio 0.73 Mitral Valve MV DT 172 (160-240 msec) MV Vmax TIPS 0.77 m/s MV Mean Grad 0.8 (<2mmHg) MV VTI 0.228 m Pulmonary Valve PV Vmax 1.48 (0.5-1.5 m/s) RVOT Vmax 0.77 m/s PV Peak Grad 8.8 mmHg RVOT Peak Gr. 2.4 mmHg PV Mean Adriel 0.85 m/s RVOT VTI 0.151 m PV Mean Grad 3.7 mmHg RVOT Mean Gr. 1.1 mmHg Tricuspid Valve RA Pressure 3.00 mmHg TR Vmax 2.52 m/s TR Peak Grad 25.3 mmHg RVSP (TR) 28.4 mmHg
== END 2024-04-05 00:36 ==
LOC: DI 00:16
PROVIDERS: PCP Family Medicine; Visit Provider Family Medicine
DX: I48.91 Unspecified atrial fibrillation (principal)
CPT/HCPCS: 93246; 93306

== ENCOUNTER 2024-04-05 10:18 | Outpatient (RCR) | payer MEDICARE, OTHER, SELFPAY | END 2024-04-26 23:59 | disposition home or self-care (01) | LOC: CARDOPNVT 10:18 | PROVIDERS: PCP Family Medicine; Visit Provider Internal Medicine Cardiovascular Disease | DX: I48.0 Paroxysmal atrial fibrillation (principal) | CPT/HCPCS: 93246 ==

== ENCOUNTER 2024-04-24 13:29 | Outpatient (CLI) | payer MEDICARE, OTHER, SELFPAY ==
--- NOTE | 2024-04-24 13:15 | RT.EKG_ITS ---
APPROVED REPORT Exam: Resting ECG Reason for Exam: afib Patient Location: O HR:78 bpm ECG Measurements Heart Rate 78 AXIS MI 130 P -5 QRSd 98 QRS 18 QT 368 T 36 QTc 420 Conclusion Sinus rhythm...normal P axis, V-rate 50- 99 Normal Electrocardiogram
== END 2024-04-24 13:30 | disposition home or self-care (01) ==
LOC: DI.CARD 13:30
PROVIDERS: PCP Family Medicine; Visit Provider Registered Nurse
DX: I48.91 Unspecified atrial fibrillation (principal); R00.2 Palpitations
CPT/HCPCS: 93010

== ENCOUNTER → 2024-04-24 13:31 | Outpatient (BNVA) | payer MEDICARE, OTHER, SELFPAY | PROVIDERS: PCP Family Medicine; Referring Provider Family Medicine; Visit Provider Registered Nurse | DX: I48.0 Paroxysmal atrial fibrillation (principal); I49.1 Atrial premature depolarization; I10 Essential (primary) hypertension | CPT/HCPCS: 93005; 99215 ==

== ENCOUNTER 2024-04-25 07:29 | Outpatient (CLI) | payer MEDICARE, OTHER, SELFPAY ==
--- NOTE | 2024-04-25 09:11 | W.CARDEVENT ---
Date of service: 04/25/24 Time of Service: 09:11 Cardiac Event Recorder Referring Provider:: Lindsey Herndon Indications:: Paroxysmal atrial fibrillation Cardiac Event Note: This is a cardiac event monitor. Monitored for 10 days and 13 hours Rhythm throughout was sinus with an average heart rate of 60. Minimum was 36, maximum 138 There were rare ventricular ectopic beats. There were occasional atrial premature beats.. There were rare self-limited atrial runs. These were generally less than 10 beats in duration. There was no atrial fibrillation, no high-grade AV block, no pauses greater than 3 seconds. Symptoms were reported which correlated to sinus rhythm, rarely to atrial premature beats
== END 2024-04-25 07:30 | disposition home or self-care (01) ==
LOC: CARDOPNVT 07:29
PROVIDERS: PCP Family Medicine; Visit Provider Internal Medicine Cardiovascular Disease
DX: I48.0 Paroxysmal atrial fibrillation (principal); I49.1 Atrial premature depolarization
CPT/HCPCS: 93248

== ENCOUNTER → 2024-05-13 10:37 | Outpatient (BNVA) | payer MEDICARE, OTHER, SELFPAY | PROVIDERS: PCP Family Medicine; Referring Provider Family Medicine; Visit Provider Student in an Organized Health Care Education/Training Program | DX: G56.01 Carpal tunnel syndrome, right upper limb (principal) | CPT/HCPCS: 99213 ==

== ENCOUNTER 2024-05-14 11:27 | Day surgery (SDC) | payer MEDICARE, OTHER, SELFPAY ==
--- NOTE | 2024-05-14 11:13 | W.PM.DSUDISC ---
Date of service: 05/14/24 Discharge Plan Disposition Patient Disposition: Home Condition: Good Discharge Details Reason For Visit: Right carpal tunnel syndrome Attending Provider: Carlos Cancino Primary Care Provider: Lindsey Herndon Home Meds and New Rx's Prescriptions: New hydrocodone-acetaminophen 5-325 mg tablet 1 tab PO Q6H PRN (Reason: severe pain) Qty: 4 0RF Rx Instructions: Take one tablet up to every 6 hours as needed for severe postoperative pain Continued tamsulosin 0.4 mg capsule 0.4 mg PO QHS Qty: 90 5RF Rx Instructions: patient will call when needed Xarelto 20 mg tablet 20 mg PO QPM Qty: 30 0RF Rx Instructions: must administer with evening meal Discharge Instructions Stand Alone Forms: Barak Garcia Tunnel Release Activity:: Elevate Remove Dressings/Wound Care:: 48 hours Shower/Bathe:: 48 hours Diet:: As Tolerated Discharge Orders Discharge Orders: Discharge Order (Routine); Ordered 05/14/24 Ordered By: Patrizia Yarbrough
[2024-05-14 12:15] VITALS: BP 155/76; PULSE 73; RESP 14; TEMP 36.5; O2SAT 98
[2024-05-14] MEDS: Cephalexin 500 MG CAP 1000 MG PO (12:40)
--- NOTE | 2024-05-14 14:14 | ROE_ITS ---
Operative Note Operative Note PRE-OP DIAGNOSIS: Right Carpal Tunnel Syndrome POST-OP DIAGNOSIS: same PROCEDURE: Right Endoscopic Carpal Tunnel Release SURGEON: Carlos Cancino ANESTHESIA TYPE: Local By Surgeon Refer to Anesthesia Record ESTIMATED BLOOD LOSS: 0 PATHOLOGY: none sent TOURNIQUET TIME: 6 COMPLICATIONS: None Patient was transported to: same day Patient's condition: stable Indications: I have seen Genna in clinic for symptoms of carpal tunnel syndrome. The numbness, tingling, and pain limited function. Clinical exam findings confirmed the diagnosis of carpal tunnel syndrome. Nonoperative measures such as bracing, time, activity modifications had been tried but disability and pain persisted. I discussed carpal tunnel release with the patient. I reviewed the risks of the procedure to include, but not limited to, bleeding, infection, pain, stiffness, incomplete release, damage to nerves or vessels, persistent numbness, recurrence. Despite these risks, the patient elected to proceed. Findings: There was tightened carpal tunnel. This was dilated and released successfully with the endoscopic with increased space within the tunnel. The antebrachial fascia was released proximally freeing the median nerve at the wrist. Procedure Description: Genna was greeted in the preoperative holding area where the correct side was identified and marked. The consent was reviewed with the patient and signed. The history and physical was updated. All questions were answered. Pro phylactic antibiotics in the form of Cephalexin were administered in DSU. Genna was taken back to the operating room. The patient was placed into the supine position on the operating room table with the right arm on an arm board. A nonsterile tourniquet was placed high onto the arm. All bony prominences were well padded. The right arm was then prepped with Chloraprep and draped in a standard fashion with stockinette and extremity drape. A timeout to confirm correct identity, side and site, procedure, allergies, anesthesia, and medical concerns was performed. The surgical site was marked in the volar wrist creases in line with the radial border of the fourth ray. This area was anesthetized with approximately 9cc of 1% Lidocaine with epinephrine, buffered with sodium bicarbonate. The limb was then exsanguinated with an Esmarch. The skin was incised with a 15 blade, approximately 1cm. The skin only was cut and the deeper tissue was dissected bluntly with a tenotomy scissor, avoiding passing nerve and venous structures. The fascia was penetrated and opened bluntly. A two-prong skin hook was placed under this proximal fascial edge. A series of hamate finders were used to identify and dilate the carpal tunnel. Synovial elevator was used to free synovial attachments to the underside of the transverse carpal ligament. My thumb was kept in the palm to feliz the distal extent of the carpal tunnel and correctly position the hand. The Microaire endoscope was inserted without difficulty and without resistance. Excellent visualization showed horizontally running fibers of the transverse carpal ligament (TCL). The distal extent of the TCL was visualized and the end of the scope palpated with the thumb. The blade was elevated and withdrawn from distal to proximal. The TCL was split into two flaps. The endoscope was reinserted to confirm complete release and any remnant ligament was incised. The scope was withdrawn and the proximal aspect of the carpal tunnel was grossly inspected and appeared release with the median nerve visible. The antebrachial fascia at the level of the wrist was then freed from the overlying skin and then the underlying median nerve with blunt dissection. This was transected longitudinally for about 3cm proximal to the wrist incision. The wound was then irrigated with easy flow of irrigant distally and proximally. The incision was closed with a single 4-0 Nylon suture. The wound was dressed with Xeroform, Gauze, Kerlix and Loco. The tourniquet was deflated with the initial dressing and held with some pressure. Blood flow returned easily to all digits with capillary refill less than 2 seconds. The patient tolerated the procedure well and was returned to the Same Day Surgery area in a stable condition suffering no known complication. Date of Procedure: 05/14/24
[2024-05-14 14:16] VITALS: BP 138/74; PULSE 65; RESP 14; TEMP 36.2; O2SAT 100
[2024-05-14] MEDS: Sodium Bicarbonate 50 MEQ/50 ML VIAL (14:17)
[2024-05-14] MEDS: Lidocaine 1% Multi-Dose W/EPI 1/100,000 50 ML VIAL (14:17)
== END 2024-05-14 14:26 | disposition home or self-care (01) ==
LOC: SUR 11:27
PROVIDERS: PCP Family Medicine; Visit Provider Student in an Organized Health Care Education/Training Program
PROC: 01N54ZZ Release Median Nerve, Percutaneous Endoscopic Approach (ICD-10-PCS; CPT 29848; principal; 2024-05-14 13:30)
DX: G56.01 Carpal tunnel syndrome, right upper limb (principal)
CPT/HCPCS: 29848; J2004

== ENCOUNTER → 2024-05-16 10:24 | Outpatient (BNVA) | payer MEDICARE, OTHER, SELFPAY | PROVIDERS: PCP Family Medicine; Referring Provider Family Medicine; Visit Provider Physical Therapy Assistant | DX: Z12.11 Encounter for screening for malignant neoplasm of colon (principal); Z86.0100 Personal history of colon polyps, unspecified; I10 Essential (primary) hypertension ==

== ENCOUNTER 2024-05-22 10:39 | Day surgery (SDC) | payer MEDICARE, OTHER, SELFPAY ==
[2024-05-22] MEDS: Lactated Ringers 1,000 ML 80 ML IV (11:15)
--- NOTE | 2024-05-22 11:56 | W.ANESPRE ---
General Info Date of Service Date Performed: 05/22/24 Height: 5 ft 7 in Weight: 68.4 kg Body Mass Index (BMI): 23.6 Surgical Procedure: Operation Date: 05/22/24 11:35 Proposed Procedure Side Surgeon p Colonoscopy Oneil Esparza MD Actual Procedure Side Surgeon p Colonoscopy Oneil Esparza MD Pre-Op Diagnosis Post-Op Diagnosis hx of polyps Meds Allergies and Home Medications Allergies Allergy/AdvReac Type Severity Reaction Status Date / Time No Known Allergies Allergy Verified 05/22/24 11:04 Home Medication ?Medication ?Instructions ?Recorded tamsulosin 0.4 mg capsule 0.4 mg PO QHS #90 caps 11/21/23 rivaroxaban 20 mg tablet (Xarelto) 20 mg PO QPM #30 tabs 03/28/24 bisacodyl 5 mg tablet,delayed 5 mg PO ONCE #4 tabs 05/16/24 release (Dulcolax (bisacodyl)) polyethylene glycol 3350 17 17 g PO ONCE #238 grams 05/16/24 gram/dose oral powder Current Visit Medications: Current Medications Generic Name Dose Route Start Last Admin Trade Name Freq PRN Reason Stop Dose Admin Ringer's Solution 1,000 mls @ 80 mls/hr 05/22/24 06:00 05/22/24 11:15 IV 06/20/24 23:59 80 mls/hr INFUSION XIANG Administration IV Miscellaneous Supplies 1 each 05/22/24 06:00 Iv Access IV 06/20/24 23:59 DIRECTED XIANG Sodium Chloride 0 ml 05/22/24 06:00 Normal Saline Flush 10 Ml Syr IV 06/20/24 23:59 PRN PRN Sodium Chloride 0 ml 05/22/24 06:00 Normal Saline 10 Ml Vial IJ 06/20/24 23:59 DIRECTED PRN Sterile Water 0 ml 05/22/24 06:00 Water,Injection,Sterile 10 Ml Vial IJ 06/20/24 23:59 DIRECTED PRN PFSH Active Problems Active Problems: Problem Status Onset Code Tubular adenoma of colon Acute D12.6 Elevated bilirubin Acute R17 Elevated hematocrit Acute R71.8 Right carpal tunnel syndrome Acute G56.01 Spinal stenosis of lumbar region Acute M48.061 Rib pain on left side Acute R07.81 Osteoarthritis of carpometacarpal (CMC) joint of right thumb Acute M18.11 De Quervain's tenosynovitis, right Acute M65.4 Arthritis of right elbow Acute M19.021 Shoulder arthritis Acute M19.019 BPH (benign prostatic hyperplasia) Chronic N40.0 Seborrheic keratosis Acute L82.1 Calcific tendonitis of right shoulder Acute M75.31 Chronic left hip pain Acute M25.552, G89.29 Calcific tendonitis of left shoulder Acute M75.32 Carpal tunnel syndrome on both sides Acute G56.03 Cervical pain Acute M54.2 Biceps tendinitis of right shoulder Acute M75.21 Right rotator cuff tendinitis Acute M75.81 Posterior vitreous detachment of right eye Acute 18 H43.811 Low back pain, non-specific Acute M54.5 Medical History Medical History Hx of atrial fibrillation, no current medication 05/14/24: pt reports he went to the ER 6 weeks ago and was diagnosed with AFib. 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 Surgical History Surgical History History of arthroscopy of left shoulder (03/23/22) Rotator cuff repair and open biceps tenodesis Hx of inguinal hernia repair r side Cubital tunnel syndrome on left S/P Release: 05/18/2022 Arthrofibrosis of total knee arthroplasty B/L S/P b/l knee arthroscopy with synovectomy and manipulation: 04/30/2019 History of total left knee replacement (TKR) (04/11/17) History of arthroscopy of knee S/P colonoscopy (~05/15/18) History of total right knee replacement (TKR) (03/15/18) 03/15/2018 History of arthroscopy of right knee History of arthroscopy of left knee multiple History of repair of anterior cruciate ligament of left knee Tobacco Smoking/Tobacco Use Status: Current-Occasional Tobacco Type: smokeless tobacco Smokeless tobacco user: chewing tobacco Alcohol Alcohol Intake: current Alcohol intake frequency: 0-2 drinks per day Alcohol type: hard liquor Details: 5/week Substance Use Substance use: Never Substance use type: does not use Details: Last ETOH 4 oz vodka 05/21/24 1700 occasional chewing tobacco use, denies use today. Vital Signs and Lab Results Lab Results Blood Type / Crossmatch: No Data to Display Complete Blood Count: No Data to Display Complete Metabolic Panel: No Data to Display Liver Function Panel: No Data to Display Coagulation Panel: No Data to Display Cardiac Panel: No Data to Display Arterial Blood Gas: No Data to Display Venous Blood Gas: No Data to Display Pancreas Panel: No Data to Display Thyroid Panel: No Data to Display Infectious Disease: No Data to Display Blood Cultures: No Data to Display Toxicology Panel: No Data to Display Anesthesia Assessment and Plan Anesthesia History Personal History: No History of Anesthesia Complications Family History: No Family History of Anesthesia Complications Exercise Tolerance Exercise Tolerance: Metabolic Equivalents>4 Pertinent Negatives Pertinent Negatives: No Symptoms of GERD Cardiac & Pulmonary Exam Cardiac Exam: Normal S1/S2 Heart Sounds Pulmonary Exam: Clear Bilateral Breath Sounds Implantable Cardiac Device Does patient have a Pacemaker or an ICD?: No Airway Exam Known Difficult Airway: No Mallampati Class: 2 Mouth Opening: Normal (> 3cm) Thyromental Distance: Greater than 3 cm Neck Range of Motion: Full ROM Neck Circumference: Normal Teeth Condition: Normal Dentition ASA Classification ASA Score: ASA 2 Emergency Case?: No NPO Status NPO Status: NPO Clears >2 hours, Solids >8 hours Anesthesia Plan Resuscitation Status: Full Code Anesthesia Technique: General Anesthesia Airway Planned: Natural Airway Monitors Used: Standard Monitors
[2024-05-22 11:58] VITALS: BMI 23.6
--- NOTE | 2024-05-22 12:34 | COLE_ITS ---
Date of service: 05/22/24 Time of Service: 12:34 Colonoscopy Report Procedure Description: PROCEDURES PERFORMED: 1. Colonoscopy with hot snare polypectomy x2 PREOPERATIVE DIAGNOSIS: Surveillance colonoscopy, colon polyps POSTOPERATIVE DIAGNOSIS: Sigmoid diverticulosis, colon polyps, grade 2 internal hemorrhoids and external hemorrhoids SURGEON: Radha Esparza MD INDICATION FOR PROCEDURE: The patient is a 73-year-old man with a personal history of adenomatous polyps. No family history of colon cancer. He does not have any symptoms of concern. Due for surveillance. FINDINGS: In the transverse colon, a 3-5 mm sessile polyp was removed with hot snare technique. Further along in the sigmoid colon another 3 - 5 mm polyp was removed hot snare technique. There are scattered diverticuli in the sigmoid colon. No inflammation and no stricture or fibrosis. Grade 2 internal hemorrhoid disease present. SURVEILLANCE interval/FOLLOW-UP: 5 years SPECIMENS: Yes EBL: Minimal COMPLICATIONS: None QUALITY of Prep: Excellent Procedure in detail: The patient gave written consent and was in agreement with the indications, the potential risks as well as the benefits of the procedure. They were taken to the endoscopy suite and laid in the left lateral decubitus position. A timeout was performed and anesthesia was administered which was tolerated well. I started the procedure. Digital rectal and visual examination was performed and external hemorrhoids not ed. A well-lubricated flexible colonoscope was then introduced and passed without any notable difficulty all the way to the cecum identified by the ileocecal valve and the appendiceal orifice. The terminal ileum was intubated and looked normal. The scope was then slowly withdrawn with the above-noted findings. The patient tolerated the procedure well and was taken to the PACU in hemodynamically stable condition.
--- NOTE | 2024-05-22 13:00 | BOWEL_PTH ---
PATIENT: Genna Gomez LOC: [facility] U#:[id number] AGE/SX: 73/M ROOM: RE05/22/[address]: Oneil Esparza : 1950 BED: DIS: 05/22/2024 SPEC #: [id number] RECD: 05/22/24 14:26 STATUS: MOISÉS RE #: [id number] DONIS: 05/22/24 13:[address]: Oneil Esparza DEPT: Surgical Specimen RECD BY: Brigitte Glover ENTERED: 05/22/24 14:27 SP TYPE: Bowel OTHR DR: Lindsey Herndon MD, DC Tissues: 1 - BIOPSY BOWEL 2 - BIOPSY BOWEL Procedures: GROSS AND MICRO LEVEL 4 Comments: [id number]
[2024-05-22 13:29] VITALS: BP 131/74; PULSE 60; RESP 16; TEMP 36.8; O2SAT 100
--- NOTE | 2024-05-22 13:33 | W.ANESPOSTOP ---
Postoperative Evaluation Date, Time and Location Date Performed: 05/22/24 Time Performed: 13:33 Patient Location: Day Surgery Unit Vital Signs Most Recent Imported Vital Signs: Most Recent Vital Signs Temp Pulse Resp BP Pulse Ox 36.8 C 60 16 131/74 100 05/22/24 13:29 05/22/24 13:29 05/22/24 13:29 05/22/24 13:29 05/22/24 13:29 Pain Score Most Recent Pain Score: Most Recent Pain Score Pain Level 0 05/22/24 13:29 Assessment Mental Status: Awake (Alert & Oriented to Patient Baseline) Airway and Respiratory Function: Patent airway with normal (patient baseline) respiratory exam Cardiovascular Function: Hemodynamically Stable Hydration Status: Adequately Hydrated Nausea & Vomiting: No Nausea or Vomiting Pain: Pt. Denies Any Pain Peripheral Nerve Block: Patient did not receive a nerve block
--- NOTE | 2024-05-22 13:50 | W.PM.DSUDISC ---
Date of service: 05/22/24 Discharge Plan Disposition Patient Disposition: Home Condition: Good Discharge Details Attending Provider: Oneil Esparza Primary Care Provider: Lindsey Herndon Home Meds and New Rx's Prescriptions: No Action tamsulosin 0.4 mg capsule 0.4 mg PO QHS Qty: 90 5RF Rx Instructions: patient will call when needed bisacodyl [Dulcolax (bisacodyl)] 5 mg tablet,delayed release (DR/EC) 5 mg PO ONCE Qty: 4 0RF Rx Instructions: Take per colonoscopy instructions provided by ordering providers office polyethylene glycol 3350 17 gram/dose powder 17 g PO ONCE Qty: 238 0RF Rx Instructions: Take per colonoscopy instructions provided by ordering providers office Xarelto 20 mg tablet 20 mg PO QPM Qty: 30 0RF Patient Comments: 05/14/24: pt reports has not taken Xarelto for 3 weeks. FS RN. Rx Instructions: must administer with evening meal Discharge Instructions Additional Instructions: FINDINGS: A couple of polyps were found and removed from your colon today. They are nothing to worry about but this is why we keep doing the colonoscopies. You should do another colonoscopy in 3-5 years depending on the type of polyps that these are. Some mild hemorrhoid disease and diverticular disease was seen in your colon which is common, benign and nothing needs to be done about it. Stand Alone Forms: Anesthesia Discharge Inst., Colonoscopy Post Instructions, Ellis Whelan (DSU) Activity:: Activity as Tolerated Diet:: As Tolerated
[2024-05-22 14:06] VITALS: BP 134/84; PULSE 56; RESP 16; TEMP 36.2; O2SAT 98
== END 2024-05-22 14:18 | disposition home or self-care (01) ==
PROVIDERS: PCP Family Medicine; Visit Provider Student in an Organized Health Care Education/Training Program
PROC: 0DJD8ZZ Inspection of Lower Intestinal Tract, Via Natural or Artificial Opening Endoscopic (ICD-10-PCS; CPT 45378; principal; 2024-05-22 11:30)
DX: Z12.11 Encounter for screening for malignant neoplasm of colon (principal); D12.5 Benign neoplasm of sigmoid colon; K57.30 Diverticulosis of large intestine without perforation or abscess without bleeding; K64.1 Second degree hemorrhoids; K64.8 Other hemorrhoids; D12.4 Benign neoplasm of descending colon
CPT/HCPCS: 45385; 88305; J2003; J2704

== ENCOUNTER → 2024-05-23 08:09 | Outpatient (BNVA) | payer MEDICARE, OTHER, SELFPAY | PROVIDERS: PCP Family Medicine; Referring Provider Family Medicine | DX: Z47.89 Encounter for other orthopedic aftercare (principal); R29.898 Other symptoms and signs involving the musculoskeletal system | CPT/HCPCS: 99024 ==